=== PATIENT | male | born 1965 | race Caucasian/White ===

== ENCOUNTER → 2018-05-30 10:52 | Outpatient (CLI) | payer OTHER, SELFPAY ==
[2018-05-30 12:17] LABS: Add Manual Diff / Slide Review NO; Basophils Percent Auto 1.1 % (0-2); Eosinophils Percent Auto 1.1 % (2-4); Hematocrit 36.1 % (41-53); Hemoglobin 12.2 g/dL (13.5-17.5); Lymphocytes Percent Auto 12.5 % (25-40); Mean Corpuscular HGB Conc 33.9 % (30-36); Mean Corpuscular Hemoglobin 34.1 PG (26-34); Mean Corpuscular Volume 100.8 fL (80-100); Monocytes Percent Auto 10.7 % (3-14); Neutrophils Absolute Auto 5900 /uL (3000-5900); Neutrophils Percent Auto 74.6 % (50-75); Platelet Count 256 X10^3/uL (150-400); Red Blood Cell Count 3.58 X10^6/uL (4.5-5.9); Red Cell Distribution Width 13.5 % (11.6-14.8); White Blood Cell Count 7.9 X10^3/uL (4.5-11.0)
[2018-05-30 12:38] LABS: Erythrocyte Sedimentation Rate 63 MM/HR (0-15)
[2018-05-30 12:46] LABS: Alanine Aminotransferase 29 IU/L (21-72); Albumin 3.8 g/dL (3.5-5.0); Alkaline Phosphatase 113 U/L (38-126); Aspartate Aminotransferase 67 IU/L (17-59); BUN Creatinine Ratio 5.7 (6-22); Bilirubin Total 0.6 mg/dL (0.2-1.3); Blood Urea Nitrogen 4 mg/dL (9-20); Calcium 8.5 mg/dL (8.4-10.2); Carbon Dioxide 27 mmol/L (22-32); Chloride 99 mmol/L (98-107); Cholesterol 151 mg/dL (140-199); Estimated Glomerular Filt Rate > 60.0 mL/min (>60); Globulin 3.7 g/dL (1.7-4.1); Glucose 111 mg/dL (70-100); HDL Cholesterol 30 mg/dL (40-60); HEMOLYSIS < 15 (0-50); LDL Cholesterol Calculated 90 mg/dL (<100); Potassium 3.3 mmol/L (3.4-5.1); Sodium 143 mmol/L (137-145); Total Protein 7.5 g/dL (6.3-8.2); Triglycerides 157 mg/dL (35-150); Uric Acid 6.5 mg/dL (3.5-8.5)
[2018-05-30 12:49] LABS: Rheumatoid Factor < 8.6 IU/mL (<12.0)
[2018-05-30 13:14] LABS: Prostate Specific Antigen Scrn 1.05 ng/mL (0.1-4.0)
[2018-06-01 21:34] LABS: ANA Screen NEGATIVE (Negative); DNA Antibody Crithidia IFA NEGATIVE (Negative); Rheumatoid Factor <14 IU/mL; Sjogren Antiboday SS-A <1.0 NEG AI (<1.0 NEGATIVE); Sjogren Antiboday SS-B <1.0 NEG AI (<1.0 NEGATIVE); Sm Antibody <1.0 NEG AI (<1.0 NEGATIVE); Sm/RNP Antibody <1.0 NEG AI (<1.0 NEGATIVE)
== END ==
PROVIDERS: PCP Family Medicine; Visit Provider Family Medicine
DX: I10 Essential (primary) hypertension (principal); M19.90 Unspecified osteoarthritis, unspecified site; M25.473 Effusion, unspecified ankle; Z87.442 Personal history of urinary calculi; Z12.5 Encounter for screening for malignant neoplasm of prostate
CPT/HCPCS: 36415; 80053; 80061; 84443; 84550; 85025; 85651; 86038; 86430; G0103

== ENCOUNTER → 2018-06-14 13:03 | Outpatient (CLI) | payer OTHER, SELFPAY ==
--- NOTE | 2018-06-14 13:09 | DI.RAD.S_ITS ---
PROCEDURE: XR CHEST 2V INDICATIONS: Smoker, weight loss TECHNIQUE: 2 views of the chest were acquired. COMPARISON: None. FINDINGS: Surgical changes and devices: None. Lungs and pleura: No pleural effusions or pneumothorax. Lungs are clear. Mediastinum: Mediastinal contours are normal. Heart size is normal. Bones and chest wall: No suspicious bony abnormalities. Soft tissues appear unremarkable. IMPRESSION: No acute disease. Dictated by: Sadi Clifford M.D. on 06/14/2018 at 15:27 Approved by: Sadi Clifford M.D. on 06/14/2018 at 15:29
[2018-06-16 17:24] LABS: Hepatitis A Antibody IgM NONREACTIVE (NONREACTIVE); Hepatitis Acute Panel Interp 0.08 (NONREACTIVE); Hepatitis B Core Antibody IgM NONREACTIVE (NONREACTIVE); Hepatitis B Surface Antigen NONREACTIVE (NONREACTIVE); Hepatitis C Antibody NONREACTIVE
== END ==
PROVIDERS: PCP Family Medicine; Visit Provider Family Medicine
DX: F17.200 Nicotine dependence, unspecified, uncomplicated (principal); R63.4 Abnormal weight loss; R31.9 Hematuria, unspecified; R74.8 Abnormal levels of other serum enzymes; R27.0 Ataxia, unspecified
CPT/HCPCS: 36415; 71046; 80074; 82140

== ENCOUNTER → 2018-06-23 07:49 | Outpatient (CLI) | payer OTHER, SELFPAY ==
--- NOTE | 2018-06-23 07:51 | DI.MRI.S_ITS ---
PROCEDURE: MR HEAD/BRAIN WO CON INDICATIONS: Gait abnormal TECHNIQUE: Noncontrast axial T1 spin echo, axial T2 fast spin echo, sagittal and axial FLAIR, coronal T2 fast spin echo, axial gradient echo, axial diffusion and ADC through the brain. COMPARISON: None. FINDINGS: Image quality: Excellent. CSF Spaces: Basal cisterns are patent. No extra-axial fluid collections. Ventricles are normal in size and shape. Brain: No intracranial masses or hemorrhage. Triplett/white matter interface is normal. Brainstem appears normal. Diffusion-weighted images demonstrate no acute ischemic insult. There is mild to moderate microvascular atherosclerotic change in the deep white matter of each hemisphere. No chronic ischemic insults. Normal intravascular flow voids are present. Skull and face: Calvarium has normal marrow signal. Orbits appear normal. Sinuses: Sinuses and mastoids are clear. IMPRESSION: Mild to moderate foci of elevated flair signal in the deep white matter of each hemisphere, in a nonspecific distribution. Microvascular atherosclerotic change is considered the most likely cause of this appearance. No acute or subacute ischemic injury is identified, no mass lesion is found. No ventriculomegaly is present. Dictated by: Jacob Miranda M.D. on 06/23/2018 at 10:42 Approved by: Jacob Miranda M.D. on 06/23/2018 at 10:44
== END ==
PROVIDERS: PCP Family Medicine; Visit Provider Family Medicine
DX: I67.2 Cerebral atherosclerosis (principal); R26.0 Ataxic gait; Z87.828 Personal history of other (healed) physical injury and trauma
CPT/HCPCS: 70551

== ENCOUNTER 2018-07-18 07:53 | Day surgery (SDC) | payer OTHER, SELFPAY ==
[2018-07-18] VITALS (9 sets, daily range): BP systolic 116–152; BP diastolic 85–110; PULSE 90–119; RESP 14–20; TEMP 36.6–36.8; O2SAT 93–98; BMI 23.6
--- NOTE | 2018-07-18 | DI.RAD.S_ITS ---
PROCEDURE: XR ACUTE ABDOMEN SERIES INDICATIONS: post op TECHNIQUE: One view chest and two views of the abdomen were acquired. COMPARISON: None. FINDINGS: Surgical changes and devices: None. Chest: Lungs are clear. Heart size is normal. No pleural effusions. No pneumoperitoneum. Abdomen: Diffuse gaseous distention of large and small bowel loops.. No suspicious calcifications. Visualized solid organ contours appear normal. Bones: No suspicious bony lesions. IMPRESSION: Diffuse gaseous distention of large and small bowel loops, possibly ileus or sequela from recent colonoscopy. No definite transition point. The patient's symptoms do not improve recommend continued surveillance with abdominal series radiographs. No free air. Clear lungs. Dictated by: Sadi Clifford M.D. on 07/18/2018 at 12:09 Approved by: Sadi Clifford M.D. on 07/18/2018 at 12:10
--- NOTE | 2018-07-18 | PATH_ITS ---
[facility] Accession Number: [id number] . 01 Material submitted: . PART A: ANTRAL BIOPSIES PART B: SIGMOID COLON POLYP AT 25CM . 01 Diagnosis: A. Antrum, Biopsies: Gastric antral mucosa with chronic gastritis. Negative for Helicobacter organisms by immunohistochemistry. Negative for intestinal metaplasia, dysplasia or malignancy. . B. Sigmoid Colon Polyp at 25 cm: Tubular adenoma. MRV/07/20/2018 . 01 Electronically signed: . Emeterio Leslie MD, PhD, Pathologist NPI- [id number] . 01 Gross description: . Received two formalin-filled containers, both labeled with the patient's name: . A. In a container labeled antral, are four less than 0.1 cm to 0.2 cm portions of tissue, entirely submitted in cassette A. B. In a container labeled sigmoid colon polyp at 25, are three 0.1-0.2 cm portions of tissue, entirely submitted in cassette B. ([id number]) /R . 01 Microscopic: . A. An immunohistochemical stain was performed to evaluate for Helicobacter organisms and is negative. The control stain showed appropriate reactivity. . * This test was developed and its performance characteristics determined by [employer]. It has not been cleared or approved by the U.S. Food and Drug Administration. The FDA has determined that such clearance or approval is not necessary. This test is used for clinical purposes. It should not be regarded as investigational or for research. . 01 Pathologist provided ICD-10: D12.5, K29.70 . 01 CPT . 293275, 534163, N50081 Performed at: [address], [place], [place] [id number] MD Rito Peace MD Phone: [phone]
[2018-07-18] MEDS: LACTATED RINGERS 1,000 ML 42 ML IV (08:39)
--- NOTE | 2018-07-18 09:30 | PM.PREOP ---
Pre-operative Note Interval Note Pre-op Check: Yes History & Physical Reviewed by Physician and Yes Exam Performed Changes: No
--- NOTE | 2018-07-18 10:33 | PM.OP.1 ---
Operative Date/Time/Diagnoses Date of procedure: 07/18/18 Time of procedure: 10:33 Pre-op diagnosis: Weight loss and change in bowel habits Post-op diagnosis: other (Significant alcoholic gastritis with hemorrhage and sigmoid colon polyp but otherwise normal studies) Procedure & Clinicians Procedure: 1. Esophagogastroduodenoscopy with cold forceps biopsies 2. Colonoscopy with cold forceps polypectomy Same procedure as scheduled: Yes Indications: 53-year-old male with significant alcohol and tobacco abuse who presented with unexplained weight loss and change in bowel habits. He was recommended to undergo EGD and colonoscopy. Because of his significant alcohol use and potential difficulty for conscious sedation he was recommended undergo the endoscopy with the assistance of anesthesia services. Click Yes if Unassisted: Yes Anesthesia Type: General (Of note, the patient required significant amounts of general anesthesia to tolerate the procedure. He clearly would not have tolerated conscious sedation adequately.) Operative Notes Findings: 1. Normal larynx 2. Normal esophagus without evidence of strictures or lesions. No neoplasms 3. No evidence of esophageal varices 4. Z-line at 40 cm from the incisors without significant esophagitis. 5. Fresh and old hemorrhage within the gastric lumen in association with significant gastritis and small punctate ulcers near the pre-pyloric region. No active hemorrhage currently. No exposed vessels. 6. No evidence of gastric or duodenal neoplasms 7. No evidence of duodenal ulcers but mild duodenitis in the 1st portion of the duodenum 8. Patent pylorus and no evidence of significant hiatal hernia. 9. Extremely tortuous colon, especially on the left side which made navigation and advancement of the endoscope somewhat difficult 10. Single small polyp in the sigmoid colon but otherwise no evidence of neoplasm 11. Grossly normal terminal ileum 12. No evidence of colitis or stricture or diverticulosis Closure Type: not applicable Specimen(s): other (1. Antral biopsies 2. Sigmoid colon polyp at 25 cm) Implants & Drains: None Estimated Blood Loss (mL): 5 Blood products transfused: none Procedure in detail: After obtaining informed consent the patient was brought to the operating room and left supine on the gurney. After satisfactory induction of anesthesia a bite block was inserted and he was placed in left lateral decubitus position. SCOAP time out was performed per standard protocol. Gastroscope was placed over the tongue to the oropharynx where the upper esophageal sphincter was identified and easily intubated. Under direct visualization of the esophageal lumen the scope was advanced into the stomach which was insufflated easily with air. Pylorus was inflamed but patent and easily intubated. Scope was advanced to the 2nd portion of the duodenum which was grossly normal. Scope was slowly withdrawn and the bowel was meticulously and circumferentially examined. Findings are as above. Retroflexed view of the fundus and cardia was obtained. Antral biopsies were obtained with cold forceps and hemostasis verified. Stomach was irrigated of old blood and no other abnormalities were appreciated. Stomach was suctioned of air and fluid as much as possible the scope was withdrawn back into the esophagus. Esophagus was meticulously and circumferentially examined during withdrawal. Again, all findings are as above. Scope was removed through the mouth and this portion of the procedure terminated. Bite block was removed. Attention was turned to colonoscopy. Digital rectal examination revealed no significant hemorrhoid disease or masses. No other abnormalities. Colonoscope was inserted into the rectum and the bowel was insufflated with air. Under direct visualization of the colonic lumen the scope was advanced to the cecum where the appendiceal orifice and ileocecal valve were identified. Terminal ileum was intubated. Scope was slowly withdrawn and the bowel was meticulously and circumferentially examined. Bowel preparation was adequate. Findings are as above. Of note, we did have to reposition the patient, utilized the endoscopic stiffener device, and apply abdominal pressure to achieve the cecum. Total scope withdrawal time was approximately 8 min and 34 sec. Retroflexed view of the distal rectum and anus was obtained which showed no abnormalities. Scope was withdrawn and the procedure terminated. Anesthesia was reversed and patient taken to recovery in stable condition. Complications: none Condition: stable Disposition: PACU Plan for aftercare: 1. Discharge home 2. Return to primary care physician for ongoing evaluation and potential management of alcohol abuse
--- NOTE | 2018-07-18 11:40 | SUR.PHASEII ---
pt abdomen remarkable for notable distention espescilly on right side with maked tenderness and guarding. Dr garcia aware and 3v/ acute abdomen series ordered stat. pt benitez , shaking. Returned to NPO status after small amount of clear liquids taken, lorazepam taken po prior to ordering abdomen series. pt co slight nausea. at bedside at this time. Iv fluids at KVO
--- NOTE | 2018-07-18 11:43 | SUR.PHASEII ---
to x ray now
[2018-07-18] MEDS: LACTATED RINGERS 1,000 ML 100 ML IV (11:50)
--- NOTE | 2018-07-18 12:03 | SUR.PHASEII ---
back from x-ray [id number]
--- NOTE | 2018-07-18 12:23 | SUR.PHASEII ---
x-rays clear per dr sandy- pt passing largew amounts of gas- dc'd to home
== END 2018-07-18 12:25 | disposition home or self-care (01) ==
PROVIDERS: PCP Family Medicine; Visit Provider Surgery
PROC: 0DJ08ZZ Inspection of Upper Intestinal Tract, Via Natural or Artificial Opening Endoscopic (ICD-10-PCS; CPT 43235; 2018-07-18 09:45)
PROC: 0DJD8ZZ Inspection of Lower Intestinal Tract, Via Natural or Artificial Opening Endoscopic (ICD-10-PCS; CPT 45378; 2018-07-18 09:45)
DX: K29.80 Duodenitis without bleeding (principal); F17.210 Nicotine dependence, cigarettes, uncomplicated; R10.13 Epigastric pain; R68.81 Early satiety; R63.4 Abnormal weight loss; F41.9 Anxiety disorder, unspecified; K21.9 Gastro-esophageal reflux disease without esophagitis; G47.33 Obstructive sleep apnea (adult) (pediatric); M06.9 Rheumatoid arthritis, unspecified; D64.9 Anemia, unspecified; J44.9 Chronic obstructive pulmonary disease, unspecified; K29.21 Alcoholic gastritis with bleeding; F10.10 Alcohol abuse, uncomplicated; K22.10 Ulcer of esophagus without bleeding; D12.5 Benign neoplasm of sigmoid colon
CPT/HCPCS: 45380; 43239; 74022; 88305; 88342; J3010

== ENCOUNTER → 2018-07-31 11:07 | Outpatient (CLI) | payer OTHER, SELFPAY ==
[2018-07-31 13:27] LABS: Folate 19.9 ng/mL (2.76-20.0); Vitamin B12 808 pg/mL (239-931)
== END ==
PROVIDERS: PCP Family Medicine; Visit Provider Family Medicine
DX: R27.0 Ataxia, unspecified (principal)
CPT/HCPCS: 36415; 82607; 82746

== ENCOUNTER 2019-02-04 11:17 | Inpatient (IN) | payer OTHER, SELFPAY ==
[2019-02-04] VITALS (12 sets, daily range): BP systolic 89–105; BP diastolic 54–80; PULSE 76–107; RESP 11–22; TEMP 36.3–36.9; O2SAT 87–98; BMI 24.8; BMI 25.2
--- NOTE | 2019-02-04 11:56 | DI.RAD.S_ITS ---
PROCEDURE: XR RIBS BI MIN 4V W CXR1V INDICATIONS: multiple falls, contusions and pain in rib areas, SOB TECHNIQUE: 4 views of the bilateral ribs were acquired, along with a single view chest. COMPARISON: None. FINDINGS: Surgical changes and devices: None. Bones and chest wall: No displaced fractures or dislocations. No suspicious bony lesions. Overlying soft tissues appear unremarkable. Lungs and pleura: No pleural effusions or pneumothorax. Minimal consolidation at the left lung base is present. Mediastinum: Mediastinal contours appear normal. Heart size is normal. IMPRESSION: 1. No displaced rib fractures are evident. 2. Left basilar atelectasis. Dictated by: Larry Price M.D. on 02/04/2019 at 12:01 Approved by: Larry Price M.D. on 02/04/2019 at 12:03
[2019-02-04 12:00] LABS: INR 1.3 (0.9-1.3); Prothrombin Time 15.4 SECONDS (10.1-12.7)
[2019-02-04 12:03] LABS: PTT Partial Thromboplastin Tim 33 SECONDS (26.4-36.2)
[2019-02-04 12:05] LABS: Add Manual Diff / Slide Review NO; Alanine Aminotransferase 18 IU/L (21-72); Albumin 2.6 g/dL (3.5-5.0); Albumin Globulin Ratio 0.6 (1.0-2.8); Alkaline Phosphatase 184 U/L (38-126); Aspartate Aminotransferase 87 IU/L (17-59); Basophils Absolute Auto 0 /uL (0-100); Basophils Percent Auto 0.5 % (0-2); Bilirubin Total 0.6 mg/dL (0.2-1.3); Blood Urea Nitrogen 7 mg/dL (9-20); Calcium 7.8 mg/dL (8.4-10.2); Carbon Dioxide 30 mmol/L (22-32); Chloride 90 mmol/L (98-107); Eosinophils Absolute Auto 0 /uL (0-450); Eosinophils Percent Auto 0.1 % (2-4); Globulin 4.3 g/dL (1.7-4.1); Glucose 132 mg/dL (70-100); HEMOLYSIS < 15 (0-50); Hematocrit 30.3 % (41-53); Hemoglobin 10.4 g/dL (13.5-17.5); Lipase 93 U/L (23-300); Lymphocytes Absolute Auto 700 /uL (1100-4500); Lymphocytes Percent Auto 10.8 % (25-40); Mean Corpuscular HGB Conc 34.4 % (30-36); Mean Corpuscular Hemoglobin 36.7 PG (26-34); Mean Corpuscular Volume 106.6 fL (80-100); Monocytes Absolute Auto 500 /uL (0-900); Monocytes Percent Auto 7.7 % (3-14); Neutrophils Absolute Auto 5400 /uL (1500-7000); Neutrophils Percent Auto 80.9 % (50-75); Platelet Count 195 X10^3/uL (150-400); Red Blood Cell Count 2.84 X10^6/uL (4.5-5.9); Red Cell Distribution Width 16.1 % (11.6-14.8); Sodium 131 mmol/L (137-145); Total Protein 6.9 g/dL (6.3-8.2); White Blood Cell Count 6.6 X10^3/uL (4.5-11.0)
[2019-02-04 12:12] LABS: Potassium 2.4 mmol/L (3.4-5.1)
--- NOTE | 2019-02-04 12:12 | ED.WEAKNESS ---
HPI - Weakness General Chief complaint: Weakness Stated complaint: Chronic pain,swollen legs,fatigue Time Seen by Provider: 02/04/19 12:12 Source: patient and family Mode of arrival: wheelchair Limitations: altered mental status (somewhat confused per family) History of Present Illness HPI Narrative: [age] year old male comes to the emergency department patient states that he came today to get a fit for detention clearance. Patient was scheduled to go to detention today. When he arrived and they were asking about medical issues they asked him to come into the hospital. Patient has had issues with a increasingly distended belly as well as swelling in his lower extremities. Family states this is been going on for several months but slowly worsening. His legs have also bit swollen and her becoming slowly more painful. He has not had any fevers. He does complain of shortness of breath just while lying flat but also with exertion. He is able to lay flat. He has also had worsening memory which according to his has been slowly advancing. He also has some pain in her his chest but has had multiple falls and they think that he may have broken some ribs. He has pain with movement. He also has bruising on his upper extremities they are unsure if this is from trauma or spontaneous. Patient denies any nausea no vomiting he does occasionally have diarrhea alternating with constipation but had a normal bowel movement today. No black or bloody stools. He is not taking any medications regularly other than [id number] potassium. His primary care stopped his blood pressure medications as he has had a decrease in his blood pressure over time. He has not had prior surgeries. He does not see a english and reading instructor or GI specialty dock. He does smoke, he does drink alcohol and he states he drinks a lot, he denies any illicit. Lucia Stewart is his primary care physician. Related Data Home Medications Medication Instructions Recorded Confirmed esomeprazole magnesium [Nexium] 20 mg PO DAILY PRN 07/18/18 02/04/19 aspirin 325 mg PO DAILY 02/04/19 02/04/19 multivitamin,ny-jssi-uglydalt 1 tab PO DAILY 02/04/19 02/04/19 [Complete Multivitamin] potassium 99 mg PO DAILY 02/04/19 02/04/19 Previous Rx's Medication Instructions Recorded polyethylene glycol 3350 17 gram 17 gram PO DAILY #30 each 06/19/18 oral powder packet furosemide 20 mg tablet 20 mg PO DAILY #90 tab 06/29/18 trazodone 50 mg tablet 50 mg PO DAILY #30 tab 08/02/18 Allergies Allergy/AdvReac Type Severity Reaction Status Date / Time Penicillins Allergy Mild unkown, Verified 02/04/19 11:36 childhood Review of Systems Review of Systems ROS Unobtainable: All systems reviewed & are unremarkable except as noted in HPI and below Constitutional Denies chills, Reports fatigue, Denies fever(s), Reports frequent falls, Denies lethargy and Denies weakness Cardiovascular Denies diaphoresis, Denies syncope, Reports edema (bilateral legs, slowly worsening), Reports dyspnea and Reports dyspnea on exertion Respiratory Denies chest congestion, Denies cough, Reports dyspnea, Reports dyspnea on exertion and Denies wheezing Gastrointestinal Gastrointestinal: Denies abdominal pain, Denies melena, Denies hematochezia, Denies change in bowel habits, Denies nausea and Denies vomiting Genitourinary Denies hematuria, Denies flank pain, Denies urinary frequency, Denies urinary hesitancy, Denies urinary incontinence and Denies urinary urgency Musculoskeletal Reports abnormal gait (unsteady gait. chronically) and Reports other (chest pain, hit ribs) Integumentary/Breasts Reports unusual bruising and Reports jaundice (several weeks per family) Neurologic Reports abnormal gait (unsteady gait. chronically), Reports confusion, Denies syncope, Reports frequent falls and Denies weakness Psychiatric Reports confusion Endocrine Reports fatigue Allergic/Immunologic Denies wheezing [facility] Medical History Ankle pain (Chronic 2018) Anxiety (Chronic) Cervical spine disease (Chronic 2003) Chronic back pain (Chronic) GERD (gastroesophageal reflux disease) (Chronic 2005) Hearing loss (Chronic) Lumbar spine pain (Chronic) Recurrent sinusitis (Chronic) Rheumatoid arthritis (Chronic) Seizures (Chronic) Sleep apnea (Chronic 2004) PTSD (post-traumatic stress disorder) (Suspected) Abnormal chest x-ray (Resolved 2015) Foot pain (Resolved) Fractures (Resolved) Hemorrhoids (Resolved 1987) History of head injury (Resolved) History of spleen injury (Resolved) Surgical History Anesthesia (Resolved) Hx of surgical procedure (Resolved ~2004) Social History household members: spouse and children Smoking Status: Current every day smoker Tobacco: How many years used: 10 alcohol intake: current Social History household members: spouse and children Smoking Status: Current every day smoker Tobacco: How many years used: 10 alcohol intake: current Exam Narrative Exam Narrative: GEN: Thin jaundiced male, alert and oriented x 3 although patient seems slightly confused at times, patient's family states that he is a little confused, patient appears to be in mild distress. HEENT: Atraumatic, pupils are equal round reactive to light, extraocular movements are intact, mild scleral icterus, nares are clear. HEART: Regular rate and rhythm without murmur, clicks, rubs. Pulses are equal in upper extremities. Patient has 2+ pitting edema bilateral lower extremities. LUNGS:Lungs clear to auscultation, no wheezes, rales, crackles, chest moves symmetrically ABD:bowel sounds normal, distended, soft, non-tender, no guarding, rebound, rigidity, no masses noted, no HSM appreciated. :No CVA tenderness MSCL: Non-tender, patient has atrophy of bilateral upper extremities, he is able to lift his arms but has difficulty even pulling himself upright in bed from a partially Lang physician. NEURO:CN 2-12 intact, sensation normal SKIN: Patient has multiple areas of ecchymosis on bilateral upper extremities. None appreciated on his chest or back or abdomen. No major areas of bruising on his lower extremities. Initial Vital Signs Initial Vital Signs: Vital Signs Temperature 98.4 F 02/04/19 11:37 Pulse Rate 107 H 02/04/19 11:37 Respiratory Rate 22 02/04/19 11:37 Blood Pressure 102/74 02/04/19 11:37 Pulse Oximetry 96 02/04/19 11:37 Scores ABCD2 Citation: Meld score is 18, with a 6% 3 month mortality. GCS Cece coma scale eye opening: Spontaneous Cece coma scale verbal response: Confused [place] coma scale motor response: Obey commands Cece coma scale total score: 14 Course Orders Ordered: ED Orders 02/04/19 11:41 B Type Natriuretic Peptide Stat Complete Blood Count AUTO DIFF Stat Comprehensive Metabolic Panel Stat Lipase Stat Partial Thromboplastin Time Stat Prothrombin Time INR Stat Troponin & CK Cardiac Panel Stat 02/04/19 11:48 EKG-12 Lead Stat 02/04/19 11:56 XR ribs BI min 4V w CXR1V Stat 02/04/19 12:10 Ammonia (NH3) Stat 02/04/19 12:30 US abdomen limited Stat 02/04/19 12:33 CT head/brain wo con Stat 02/04/19 13:09 Urine Culture Stat Urine Microscopic Stat 02/04/19 17:24 Consult to Dietitian, Adult Routine Consult to Respiratory Therapy Evaluate & Treat Consult to Study Manager Routine Education, smoking cessation Once 02/04/19 17:37 Education, smoking cessation ONGOING 02/04/19 17:39 Consult to Dietitian, Adult Routine Consult to Occupational Therapy Evaluate & Treat Consult to Physical Therapy Evaluate & Treat 02/04/19 17:56 US paracentesis Urgent 02/04/19 18:30 Basic Metabolic Panel Routine 02/05/19 05:00 Complete Blood Count AUTO DIFF Routine Comprehensive Metabolic Panel Routine Magnesium Routine Partial Thromboplastin Time Routine Prothrombin Time INR Routine Thyroid Stimulating Hormone Routine Bisacodyl (Dulcolax) 10 mg PO DAILY PRN PRN Reason: Constipation Docusate Sodium (Colace) 100 mg PO BID VIANCA Folic Acid (Folic Acid) 1 mg PO DAILY VIANCA Hydromorphone HCl (Dilaudid) 0.5 mg IV Q6HR PRN PRN Reason: Pain, Moderate (4-6) Magnesium Sulfate 2 gm/ Folic Acid 1 mg/ Thiamine HCl 100 mg / Multivitamins 10 ml/ Sodium Chloride 1,015.2 mls @ 125 mls/hr IV NOW ONE Stop: 02/05/19 01:44 Lorazepam (Ativan) 0 mg IV CIWAPRN PRN; Protocol PRN Reason: Alcohol Withdrawal Multivitamins (Tab-A-Stephan) 1 tab PO DAILY [facility] Ondansetron HCl (Zofran) 4 mg IV Q6HR PRN PRN Reason: Nausea And Vomiting Oxycodone HCl (Percolone) 5 mg PO Q6HR PRN PRN Reason: Pain, Moderate (4-6) Pantoprazole Sodium (Protonix) 20 mg PO 0600 VIANCA Potassium Chloride (Klor-Con M20) 40 meq PO BIDWM VIANCA Sennosides (Senna) 17.2 mg PO BEDTIME VIANCA Spironolactone (Aldactone) 50 mg PO DAILY [facility] Thiamine HCl (Vitamin B-1) 100 mg PO DAILY VIANCA Stop: 02/08/19 09:01 Discontinued Medications Potassium Chloride/Sodium Chloride (Ns With Kcl 40 Meq) 1,000 mls @ 84 mls/hr IV CONT VIANCA Last Infusion: 02/04/19 17:33 Dose: 0 mls/hr Infusion: 02/04/19 17:32 Dose: 0 mls/hr Infusion: 02/04/19 16:32 Dose: 84 mls/hr Infusion: 02/04/19 13:19 Dose: 84 mls/hr Infusion: 02/04/19 12:35 Dose: 0 mls/hr Admin: 02/04/19 12:23 Dose: 84 mls/hr Calcium Gluconate 4.65 meq/ (Sodium Chloride) 60 mls @ 120 mls/hr IV NOW ONE Stop: 02/04/19 14:18 Last Infusion: 02/04/19 15:51 Dose: 0 mls/hr Admin: 02/04/19 15:03 Dose: 120 mls/hr Ondansetron HCl (Zofran) 4 mg IV Q8HR PRN PRN Reason: Nausea And Vomiting Potassium Chloride (Potassium Chloride) 40 meq PO NOW ONE Stop: 02/04/19 12:13 Last Admin: 02/04/19 12:22 Dose: 40 meq Vital Signs - 8 hr 02/04/19 11:37 02/04/19 12:00 02/04/19 13:17 Temperature 98.4 F Pulse Rate 107 H 95 H 88 Respiratory Rate 22 14 18 Blood Pressure 102/74 Blood Pressure [Left Arm] 105/80 104/74 Pulse Oximetry 96 94 94 02/04/19 15:00 02/04/19 15:14 02/04/19 15:30 Temperature Pulse Rate 81 88 Respiratory Rate 12 12 Blood Pressure Blood Pressure [Left Arm] 89/71 L 97/68 Pulse Oximetry 87 L 94 02/04/19 16:00 02/04/19 17:00 02/04/19 17:39 Temperature 97.7 F Pulse Rate 87 76 82 Respiratory Rate 11 L 20 Blood Pressure 93/54 L Blood Pressure [Left Arm] 89/64 L Pulse Oximetry 95 98 MDM - Weakness Lab Data Attestation: I reviewed the patient's lab results. Result diagrams: 02/04/19 11:41 02/04/19 18:30 Lab Results 02/04/19 02/04/19 02/04/19 Range/Units 11:41 11:41 11:41 WBC 6.6 (4.5-11.0) X10^3/uL RBC 2.84 L (4.5-5.9) X10^6/uL Hgb 10.4 L (13.5-17.5) g/dL Hct 30.3 L (41-53) % MCV 106.6 H (80-100) fL MCH 36.7 H (26-34) PG MCHC 34.4 (30-36) % RDW 16.1 H (11.6-14.8) % Plt Count 195 (150-400) X10^3/uL Neut % (Auto) 80.9 H (50-75) % Lymph % (Auto) 10.8 L (25-40) % [place] % (Auto) 7.7 (3-14) % Eos % (Auto) 0.1 L (2-4) % Baso % (Auto) 0.5 (0-2) % Neut # (Auto) 5400 (6656-6954) /uL Lymph # (Auto) 700 L (2102-7620) /uL [place] # (Auto) 500 (0-900) /uL Eos # (Auto) 0 (0-450) /uL Baso # (Auto) 0 (0-100) /uL PT 15.4 H (10.1-12.7) SECONDS INR 1.3 (0.9-1.3) APTT 33 (26.4-36.2) SECONDS Sodium 131 L (137-145) mmol/L Potassium 2.4 L* (3.4-5.1) mmol/L Chloride 90 L (98-107) mmol/L Carbon Dioxide 30 (22-32) mmol/L BUN 7 L (9-20) mg/dL Creatinine 1.40 H (0.66-1.25) mg/dL Estimated GFR 53.0 L (>60) mL/min BUN/Creatinine Ratio 5.0 L (6-22) Glucose 132 H (70-100) mg/dL Calcium 7.8 L (8.4-10.2) mg/dL Total Bilirubin 0.6 (0.2-1.3) mg/dL AST 87 H (17-59) IU/L ALT 18 L (21-72) IU/L Alkaline Phosphatase 184 H (38-126) U/L Ammonia (9-30) umol/L Total Creatine Kinase (55-170) U/L CK-MB (CK-2) (<2.37) ng/mL CK-MB (CK-2) Rel Index (1.5-5.0) % Troponin I (0.01-0.034) ng/mL B-Natriuretic Peptide (<100) Total Protein 6.9 (6.3-8.2) g/dL Albumin 2.6 L (3.5-5.0) g/dL Globulin 4.3 H (1.7-4.1) g/dL Albumin/Globulin Ratio 0.6 L (1.0-2.8) Lipase 93 (23-300) U/L Urine RBC (0-5/HPF) Urine WBC (0-5/HPF) Calcium Oxalate Crystal Amorphous Sediment Urine Bacteria (None) Ur Culture Indicated? 02/04/19 02/04/19 02/04/19 Range/Units 11:41 11:41 12:10 WBC (4.5-11.0) X10^3/uL RBC (4.5-5.9) X10^6/uL Hgb (13.5-17.5) g/dL Hct (41-53) % MCV (80-100) fL MCH (26-34) PG MCHC (30-36) % RDW (11.6-14.8) % Plt Count (150-400) X10^3/uL Neut % (Auto) (50-75) % Lymph % (Auto) (25-40) % [place] % (Auto) (3-14) % Eos % (Auto) (2-4) % Baso % (Auto) (0-2) % Neut # (Auto) (9487-8188) /uL Lymph # (Auto) (1270-8260) /uL [place] # (Auto) (0-900) /uL Eos # (Auto) (0-450) /uL Baso # (Auto) (0-100) /uL PT (10.1-12.7) SECONDS INR (0.9-1.3) APTT (26.4-36.2) SECONDS Sodium (137-145) mmol/L Potassium (3.4-5.1) mmol/L Chloride (98-107) mmol/L Carbon Dioxide (22-32) mmol/L BUN (9-20) mg/dL Creatinine (0.66-1.25) mg/dL Estimated GFR (>60) mL/min BUN/Creatinine Ratio (6-22) Glucose (70-100) mg/dL Calcium (8.4-10.2) mg/dL Total Bilirubin (0.2-1.3) mg/dL AST (17-59) IU/L ALT (21-72) IU/L Alkaline Phosphatase (38-126) U/L Ammonia < 9.0 L (9-30) umol/L Total Creatine Kinase 362 H (55-170) U/L CK-MB (CK-2) 0.81 (<2.37) ng/mL CK-MB (CK-2) Rel Index 0.2 L (1.5-5.0) % Troponin I 0.013 (0.01-0.034) ng/mL B-Natriuretic Peptide < 100 (<100) Total Protein (6.3-8.2) g/dL Albumin (3.5-5.0) g/dL Globulin (1.7-4.1) g/dL Albumin/Globulin Ratio (1.0-2.8) Lipase (23-300) U/L Urine RBC (0-5/HPF) Urine WBC (0-5/HPF) Calcium Oxalate Crystal Amorphous Sediment Urine Bacteria (None) Ur Culture Indicated? 02/04/19 02/04/19 Range/Units 13:09 18:30 WBC (4.5-11.0) X10^3/uL RBC (4.5-5.9) X10^6/uL Hgb (13.5-17.5) g/dL Hct (41-53) % MCV (80-100) fL MCH (26-34) PG MCHC (30-36) % RDW (11.6-14.8) % Plt Count (150-400) X10^3/uL Neut % (Auto) (50-75) % Lymph % (Auto) (25-40) % [place] % (Auto) (3-14) % Eos % (Auto) (2-4) % Baso % (Auto) (0-2) % Neut # (Auto) (1926-5701) /uL Lymph # (Auto) (6929-0701) /uL [place] # (Auto) (0-900) /uL Eos # (Auto) (0-450) /uL Baso # (Auto) (0-100) /uL PT (10.1-12.7) SECONDS INR (0.9-1.3) APTT (26.4-36.2) SECONDS Sodium 132 L (137-145) mmol/L Potassium 2.8 L (3.4-5.1) mmol/L Chloride 94 L (98-107) mmol/L Carbon Dioxide 31 (22-32) mmol/L BUN 7 L (9-20) mg/dL Creatinine 1.30 H (0.66-1.25) mg/dL Estimated GFR 57.7 L (>60) mL/min BUN/Creatinine Ratio 5.4 L (6-22) Glucose 103 H (70-100) mg/dL Calcium 7.6 L (8.4-10.2) mg/dL Total Bilirubin (0.2-1.3) mg/dL AST (17-59) IU/L ALT (21-72) IU/L Alkaline Phosphatase (38-126) U/L Ammonia (9-30) umol/L Total Creatine Kinase (55-170) U/L CK-MB (CK-2) (<2.37) ng/mL CK-MB (CK-2) Rel Index (1.5-5.0) % Troponin I (0.01-0.034) ng/mL B-Natriuretic Peptide (<100) Total Protein (6.3-8.2) g/dL Albumin (3.5-5.0) g/dL Globulin (1.7-4.1) g/dL Albumin/Globulin Ratio (1.0-2.8) Lipase (23-300) U/L Urine RBC 0-1/hpf (0-5/HPF) Urine WBC 5-10/hpf H (0-5/HPF) Calcium Oxalate Crystal Few H Amorphous Sediment 1+ Urine Bacteria Few (2-10) H (None) Ur Culture Indicated? Specimen cultured Urine Dip Bedside Urine Glucose Negative Bedside Urine Bilirubin + 1 Bedside Urine Ketone +/- 5 Urine Specific Kake 1.025 Bedside Urine Occult Blood - Negative Bedside Urine pH 5.0 Bedside Urine Protein + 30 Bedside Urine Urobilinogen 1+ 2mg Bedside Urine Nitrite - Negative Bedside Urine Leukocytes +++ [address] scan - head: Radiologist's impression: [address] [address] [address] Scan Report Signed Patient: Danny Webber KMR#: [id number] : 1965Acct:[id number] Age/Sex: 53 / MDate of Service: 02/04/19 Loc: ED Accession Number: [id number] Procedure: CT head/brain wo con Ordering Provider: Bev Nunez D.O. PROCEDURE: CT HEAD/BRAIN WO CON INDICATIONS: multiple falls, confusion, liver failure TECHNIQUE: Noncontrast 4.5 mm thick angled axial sections acquired from the foramen magnum to the vertex, with coronal and sagittal reformats. For radiation dose reduction, the following was used: automated exposure control, adjustment of mA and/or kV according to patient size. COMPARISON: [facility], , MR HEAD/BRAIN WO CON, 06/23/2018, 8:04. FINDINGS: Image quality: Diagnostic. CSF spaces: Basal cisterns are patent. No extra-axial fluid collections. Ventricles are moderately prominent with corresponding parenchymal volume loss. Brain: No midline shift. No intracranial masses or hemorrhage. Triplett-white matter interface is normal. Areas of low-attenuation are seen within the periventricular and deep white matter of the supratentorial brain. This is similar to the prior MRI. Skull and face: Calvarium and visualized facial bones are intact, without suspicious lesions. Sinuses: Visualized sinuses and mastoids are clear. IMPRESSION: 1. No acute intracranial hemorrhage. 2. Chronic small vessel ischemic changes and parenchymal volume loss are similar to the previous MRI. Dictated by: Larry Price M.D. on 02/04/2019 at 12:03 Approved by: Larry Price M.D. on 02/04/2019 at 12:05 US - abdomen: Radiologist's impression: [address] [address] Ultrasound Report Signed Patient: Danny Webber KMR#: [id number] : 1965Acct:[id number] Age/Sex: 53 / MDate of Service: 02/04/19 Loc: ED Accession Number: [id number] Procedure: US abdomen limited Ordering Provider: Bev Nunez D.O. PROCEDURE: US ABDOMEN LIMITED INDICATIONS: ASCITIES; SUSPECTED LIVER FAILURE TECHNIQUE: Limited sonographic evaluation of the abdomen was performed. COMPARISON: None. FINDINGS: A large amount of ascites is identified diffusely throughout the abdomen. The liver is heterogeneous and nodular. Evaluation for subtle liver lesions is not adequate. Please note that the other abdominal organs were not imaged. . IMPRESSION: 1. Cirrhotic liver morphology. Please correlate clinically. 2. Extensive ascites. Dictated by: Larry Price M.D. on 02/04/2019 at 12:43 Approved by: Larry Price M.D. on 02/04/2019 at 12:44 Chest x-ray: Radiologist's impression: [place] [address] XRay Report Signed Patient: Danny Webber KMR#: [id number] : 1965Acct:[id number] Age/Sex: 53 / MDate of Service: 02/04/19 Loc: ED Accession Number: [id number] Procedure: XR ribs BI min 4V w CXR1V Ordering Provider: Bev Nunez D.O. PROCEDURE: XR RIBS BI MIN 4V W CXR1V INDICATIONS: multiple falls, contusions and pain in rib areas, SOB TECHNIQUE: 4 views of the bilateral ribs were acquired, along with a single view chest. COMPARISON: None. FINDINGS: Surgical changes and devices: None. Bones and chest wall: No displaced fractures or dislocations. No suspicious bony lesions. Overlying soft tissues appear unremarkable. Lungs and pleura: No pleural effusions or pneumothorax. Minimal consolidation at the left lung base is present. Mediastinum: Mediastinal contours appear normal. Heart size is normal. IMPRESSION: 1. No displaced rib fractures are evident. 2. Left basilar atelectasis. Dictated by: Larry Price M.D. on 02/04/2019 at 12:01 Approved by: Larry Price M.D. on 02/04/2019 at 12:03 ECG Data Attestation: I personally reviewed and interpreted this ECG as follows: Interpretation: Sinus rhythm rate of 94 P are 188 QRS of 92 and QTC of [address] elevation depression appreciated. MDM Narrative Medical decision making narrative: Patient hypokalemia, patient received IV potassium as well as a single dose of oral. Likely need monitoring and repeat dosing as well as repeat potassium levels. Calcium is also low. Patient has multiple electrolyte abnormalities, possible acute kidney injury versus chronic. He is anemic, patient's no known or melanotic or hematochezia. Patient has had shortness of breath with swelling in his lower extremities and worsening ascites per patient family. He is also increasing confusion although his ammonia is in a normal range. He has had multiple falls so head CT was ordered, abdominal ultrasound was performed and showed changes in the liver as well as ascites. A chest and abdominal x-ray shows some atelectasis but no lower effusions. Patient does not appear to be any major distress and likely all of his symptoms were and objective findings are secondary to his continued alcohol use. Meld score is 18. Spoke with Dr. Martinez from GI at [facility], states patient just needs to have his electrolytes replaced and can follow up outpatient with the clinic. Does not feel that he need to be at a facility with GI available. Spoke with Dr. Sarkar who accepts. Discharge Plan Departure Patient Disposition: Admitted as Observation Clinical Impression: Hypokalemia, Hypocalcemia, Cirrhosis Discharge Date/Time: 02/04/19 16:33 Interventions: ED Discharge Assessment Last Done: 02/04/19 16:33 Admit Date/Time: 02/04/19 15:34 Admit Provider: Sheila Sarkar
[2019-02-04] MEDS: POTASSIUM CHLORIDE 20 MEQ/15 ML UDC 40 MEQ PO (12:22)
[2019-02-04] MEDS: KCL 40 MEQ IN NS 1,000 ML 84 MEQ IV (12:23)
--- NOTE | 2019-02-04 12:30 | DI.US.S_ITS ---
PROCEDURE: US ABDOMEN LIMITED INDICATIONS: ASCITIES; SUSPECTED LIVER FAILURE TECHNIQUE: Limited sonographic evaluation of the abdomen was performed. COMPARISON: None. FINDINGS: A large amount of ascites is identified diffusely throughout the abdomen. The liver is heterogeneous and nodular. Evaluation for subtle liver lesions is not adequate. Please note that the other abdominal organs were not imaged. . IMPRESSION: 1. Cirrhotic liver morphology. Please correlate clinically. 2. Extensive ascites. Dictated by: Larry Price M.D. on 02/04/2019 at 12:43 Approved by: Larry Price M.D. on 02/04/2019 at 12:44
[2019-02-04 12:32] LABS: Ammonia (NH3) < 9.0 umol/L (9-30)
--- NOTE | 2019-02-04 12:33 | ED_ITS ---
HPI - Weakness General Chief complaint: Weakness Stated complaint: Chronic pain,swollen legs,fatigue Time Seen by Provider: 02/04/19 12:12 Source: patient and family Mode of arrival: wheelchair Limitations: altered mental status (somewhat confused per family) History of Present Illness HPI Narrative: [age] year old male comes to the emergency department patient states that he came today to get a fit for snf clearance. Patient was scheduled to go to snf today. When he arrived and they were asking about medical issues they asked him to come into the hospital. Patient has had issues with a increasingly distended belly as well as swelling in his lower extremities. Family states this is been going on for several months but slowly worsening. His legs have also bit swollen and her becoming slowly more painful. He has not had any fevers. He does complain of shortness of breath just while lying flat but also with exertion. He is able to lay flat. He has also had worsening memory which according to his has been slowly advancing. He also has some pain in her his chest but has had multiple falls and they think that he may have broken some ribs. He has pain with movement. He also has bruising on his upper extremities they are unsure if this is from trauma or spontaneous. Patient denies any nausea no vomiting he does occasionally have diarrhea alternating with constipation but had a normal bowel movement today. No black or bloody stools. He is not taking any medications regularly other than [id number]-[id number] potassium. His primary care stopped his blood pressure medications as he has had a decrease in his blood pressure over time. He has not had prior surgeries. He does not see a technical communicator or GI specialty dock. He does smoke, he does drink alcohol and he states he drinks a lot, he denies any illicit. Lucia Stewart is his primary care physician. Related Data Home Medications Medication Instructions Recorded Confirmed esomeprazole magnesium [Nexium] 20 mg PO DAILY PRN 07/18/18 02/04/19 aspirin 325 mg PO DAILY 02/04/19 02/04/19 multivitamin,[id number] 1 tab PO DAILY 02/04/19 02/04/19 [Complete Multivitamin] potassium 99 mg PO DAILY 02/04/19 02/04/19 Previous Rx's Medication Instructions Recorded polyethylene glycol 3350 17 gram 17 gram PO DAILY #30 each 06/19/18 oral powder packet furosemide 20 mg tablet 20 mg PO DAILY #90 tab 06/29/18 trazodone 50 mg tablet 50 mg PO DAILY #30 tab 08/02/18 Allergies Allergy/AdvReac Type Severity Reaction Status Date / Time Penicillins Allergy Mild unkown, Verified 02/04/19 11:36 childhood Review of Systems Review of Systems ROS Unobtainable: All systems reviewed & are unremarkable except as noted in HPI and below Constitutional Denies chills, Reports fatigue, Denies fever(s), Reports frequent falls, Denies lethargy and Denies weakness Cardiovascular Denies diaphoresis, Denies syncope, Reports edema (bilateral legs, slowly worsening), Reports dyspnea and Reports dyspnea on exertion Respiratory Denies chest congestion, Denies cough, Reports dyspnea, Reports dyspnea on exertion and Denies wheezing Gastrointestinal Gastrointestinal: Denies abdominal pain, Denies melena, Denies hematochezia, Denies change in bowel habits, Denies nausea and Denies vomiting Genitourinary Denies hematuria, Denies flank pain, Denies urinary frequency, Denies urinary hesitancy, Denies urinary incontinence and Denies urinary urgency Musculoskeletal Reports abnormal gait (unsteady gait. chronically) and Reports other (chest pain, hit ribs) Integumentary/Breasts Reports unusual bruising and Reports jaundice (several weeks per family) Neurologic Reports abnormal gait (unsteady gait. chronically), Reports confusion, Denies s yncope, Reports frequent falls and Denies weakness Psychiatric Reports confusion Endocrine Reports fatigue Allergic/Immunologic Denies wheezing [facility] Medical History Ankle pain (Chronic 2018) Anxiety (Chronic) Cervical spine disease (Chronic 2003) Chronic back pain (Chronic) GERD (gastroesophageal reflux disease) (Chronic 2005) Hearing loss (Chronic) Lumbar spine pain (Chronic) Recurrent sinusitis (Chronic) Rheumatoid arthritis (Chronic) Seizures (Chronic) Sleep apnea (Chronic 2004) PTSD (post-traumatic stress disorder) (Suspected) Abnormal chest x-ray (Resolved 2015) Foot pain (Resolved) Fractures (Resolved) Hemorrhoids (Resolved 1987) History of head injury (Resolved) History of spleen injury (Resolved) Surgical History Anesthesia (Resolved) Hx of surgical procedure (Resolved ~2004) Social History household members: spouse and children Smoking Status: Current every day smoker Tobacco: How many years used: 10 alcohol intake: current Social History household members: spouse and children Smoking Status: Current every day smoker Tobacco: How many years used: 10 alcohol intake: current Exam Narrative Exam Narrative: GEN: Thin jaundiced male, alert and oriented x 3 although patient seems slightly confused at times, patient's family states that he is a little confused, patient appears to be in mild distress. HEENT: Atraumatic, pupils are equal round reactive to light, extraocular movements are intact, mild scleral icterus, nares are clear. HEART: Regular rate and rhythm without murmur, clicks, rubs. Pulses are equal in upper extremities. Patient has 2+ pitting edema bilateral lower extremities. LUNGS:Lungs clear to auscultation, no wheezes, rales, crackles, chest moves symmetrically ABD:bowel sounds normal, distended, soft, non-tender, no guarding, rebound, rigidity, no masses noted, no HSM appreciated. :No CVA tenderness MSCL: Non-tender, patient has atrophy of bilateral upper extremities, he is able to lift his arms but has difficulty even pulling himself upright in bed from a partially Lang physician. NEURO:CN 2-12 intact, sensation normal SKIN: Patient has multiple areas of ecchymosis on bilateral upper extremities. None appreciated on his chest or back or abdomen. No major areas of bruising on his lower extremities. Initial Vital Signs Initial Vital Signs: Vital Signs Temperature 98.4 F 02/04/19 11:37 Pulse Rate 107 H 02/04/19 11:37 Respiratory Rate 22 02/04/19 11:37 Blood Pressure 102/74 02/04/19 11:37 Pulse Oximetry 96 02/04/19 11:37 Scores ABCD2 Citation: Meld score is 18, with a 6% 3 month mortality. GCS Hall coma scale eye opening: Spontaneous Cece coma scale verbal response: Confused Cece coma scale motor response: Obey commands Hall coma scale total score: 14 Course Orders Ordered: ED Orders 02/04/19 11:41 B Type Natriuretic Peptide Stat Complete Blood Count AUTO DIFF Stat Comprehensive Metabolic Panel Stat Lipase Stat Partial Thromboplastin Time Stat Prothrombin Time INR Stat Troponin & CK Cardiac Panel Stat 02/04/19 11:48 EKG-12 Lead Stat 02/04/19 11:56 XR ribs BI min 4V w CXR1V Stat 02/04/19 12:10 Ammonia (NH3) Stat 02/04/19 12:30 US abdomen limited Stat 02/04/19 12:33 CT head/brain wo con Stat 02/04/19 13:09 Urine Culture Stat Urine Microscopic Stat 02/04/19 17:24 Consult to Dietitian, Adult Routine Consult to Respiratory Therapy Evaluate & Treat Consult to Deputy City Clerk Routine Education, smoking cessation Once 02/04/19 17:37 Education, smoking cessation ONGOING 02/04/19 17:39 Consult to Dietitian, Adult Routine Consult to Occupational Therapy Evaluate & Treat Consult to Physical Therapy Evaluate & Treat 02/04/19 17:56 US paracentesis Urgent 02/04/19 18:30 Basic Metabolic Panel Routine 02/05/19 05:00 Complete Blood Count AUTO DIFF Routine Comprehensive Metabolic Panel Routine Magnesium Routine Partial Thromboplastin Time Routine Prothrombin Time INR Routine Thyroid Stimulating Hormone Routine Bisacodyl (Dulcolax) 10 mg PO DAILY PRN PRN Reason: Constipation Docusate Sodium (Colace) 100 mg PO BID VIANCA Folic Acid (Folic Acid) 1 mg PO DAILY VIANCA Hydromorphone HCl (Dilaudid) 0.5 mg IV Q6HR PRN PRN Reason: Pain, Moderate (4-6) Magnesium Sulfate 2 gm/ Folic Acid 1 mg/ Thiamine HCl 100 mg / Multivitamins 10 ml/ Sodium Chloride 1,015.2 mls @ 125 mls/hr IV NOW ONE Stop: 02/05/19 01:44 Lorazepam (Ativan) 0 mg IV CIWAPRN PRN; Protocol PRN Reason: Alcohol Withdrawal Multivitamins (Tab-A-Stephan) 1 tab PO DAILY [facility] Ondansetron HCl (Zofran) 4 mg IV Q6HR PRN PRN Reason: Nausea And Vomiting Oxycodone HCl (Percolone) 5 mg PO Q6HR PRN PRN Reason: Pain, Moderate (4-6) Pantoprazole Sodium (Protonix) 20 mg PO 0600 [facility] Potassium Chloride (Klor-Con M20) 40 meq PO BIDWM [facility] Sennosides (Senna) 17.2 mg PO BEDTIME VIANCA Spironolactone (Aldactone) 50 mg PO DAILY [facility] Thiamine HCl (Vitamin B-1) 100 mg PO DAILY VIANCA Stop: 02/08/19 09:01 Discontinued Medications Potassium Chloride/Sodium Chloride (Ns With Kcl 40 Meq) 1,000 mls @ 84 mls/hr IV CONT VIANCA Last Infusion: 02/04/19 17:33 Dose: 0 mls/hr Infusion: 02/04/19 17:32 Dose: 0 mls/hr Infusion: 02/04/19 16:32 Dose: 84 mls/hr Infusion: 02/04/19 13:19 Dose: 84 mls/hr Infusion: 02/04/19 12:35 Dose: 0 mls/hr Admin: 02/04/19 12:23 Dose: 84 mls/hr Calcium Gluconate 4.65 meq/ (Sodium Chloride) 60 mls @ 120 mls/hr IV NOW ONE Stop: 02/04/19 14:18 Last Infusion: 02/04/19 15:51 Dose: 0 mls/hr Admin: 02/04/19 15:03 Dose: 120 mls/hr Ondansetron HCl (Zofran) 4 mg IV Q8HR PRN PRN Reason: Nausea And Vomiting Potassium Chloride (Potassium Chloride) 40 meq PO NOW ONE Stop: 02/04/19 12:13 Last Admin: 02/04/19 12:22 Dose: 40 meq Vital Signs - 8 hr 02/04/19 11:37 02/04/19 12:00 02/04/19 13:17 Temperature 98.4 F Pulse Rate 107 H 95 H 88 Respiratory Rate 22 14 18 Blood Pressure 102/74 Blood Pressure [Left Arm] 105/80 104/74 Pulse Oximetry 96 94 94 02/04/19 15:00 02/04/19 15:14 02/04/19 15:30 Temperature Pulse Rate 81 88 Respiratory Rate 12 12 Blood Pressure Blood Pressure [Left Arm] 89/71 L 97/68 Pulse Oximetry 87 L 94 02/04/19 16:00 02/04/19 17:00 02/04/19 17:39 Temperature 97.7 F Pulse Rate 87 76 82 Respiratory Rate 11 L 20 Blood Pressure 93/54 L Blood Pressure [Left Arm] 89/64 L Pulse Oximetry 95 98 MDM - Weakness Lab Data Attestation: I reviewed the patient's lab results. Result diagrams: 02/04/19 11:41 02/04/19 18:30 Lab Results 02/04/19 02/04/19 02/04/19 Range/Units 11:41 11:41 11:41 WBC 6.6 (4.5-11.0) X10^3/uL RBC 2.84 L (4.5-5.9) X10^6/uL Hgb 10.4 L (13.5-17.5) g/dL Hct 30.3 L (41-53) % MCV 106.6 H (80-100) fL MCH 36.7 H (26-34) PG MCHC 34.4 (30-36) % RDW 16.1 H (11.6-14.8) % Plt Count 195 (150-400) X10^3/uL Neut % (Auto) 80.9 H (50-75) % Lymph % (Auto) 10.8 L (25-40) % Nicholas % (Auto) 7.7 (3-14) % Eos % (Auto) 0.1 L (2-4) % Baso % (Auto) 0.5 (0-2) % Neut # (Auto) 5400 (8224-3093) /uL Lymph # (Auto) 700 L (2679-1909) /uL Nicholas # (Auto) 500 (0-900) /uL Eos # (Auto) 0 (0-450) /uL Baso # (Auto) 0 (0-100) /uL PT 15.4 H (10.1-12.7) SECONDS INR 1.3 (0.9-1.3) APTT 33 (26.4-36.2) SECONDS Sodium 131 L (137-145) mmol/L Potassium 2.4 L* (3.4-5.1) mmol/L Chloride 90 L (98-107) mmol/L Carbon Dioxide 30 (22-32) mmol/L BUN 7 L (9-20) mg/dL Creatinine 1.40 H (0.66-1.25) mg/dL Estimated GFR 53.0 L (>60) mL/min BUN/Creatinine Ratio 5.0 L (6-22) Glucose 132 H (70-100) mg/dL Calcium 7.8 L (8.4-10.2) mg/dL Total Bilirubin 0.6 (0.2-1.3) mg/dL AST 87 H (17-59) IU/L ALT 18 L (21-72) IU/L Alkaline Phosphatase 184 H (38-126) U/L Ammonia (9-30) umol/L Total Creatine Kinase (55-170) U/L CK-MB (CK-2) (<2.37) ng/mL CK-MB (CK-2) Rel Index (1.5-5.0) % Troponin I (0.01-0.034) ng/mL B-Natriuretic Peptide (<100) Total Protein 6.9 (6.3-8.2) g/dL Albumin 2.6 L (3.5-5.0) g/dL Globulin 4.3 H (1.7-4.1) g/dL Albumin/Globulin Ratio 0.6 L (1.0-2.8) Lipase 93 (23-300) U/L Urine RBC (0-5/HPF) Urine WBC (0-5/HPF) Calcium Oxalate Crystal Amorphous Sediment Urine Bacteria (None) Ur Culture Indicated? 02/04/19 02/04/19 02/04/19 Range/Units 11:41 11:41 12:10 WBC (4.5-11.0) X10^3/uL RBC (4.5-5.9) X10^6/uL Hgb (13.5-17.5) g/dL Hct (41-53) % MCV (80-100) fL MCH (26-34) PG MCHC (30-36) % RDW (11.6-14.8) % Plt Count (150-400) X10^3/uL Neut % (Auto) (50-75) % Lymph % (Auto) (25-40) % Nicholas % (Auto) (3-14) % Eos % (Auto) (2-4) % Baso % (Auto) (0-2) % Neut # (Auto) (2667-0144) /uL Lymph # (Auto) (9010-4752) /uL Nicholas # (Auto) (0-900) /uL Eos # (Auto) (0-450) /uL Baso # (Auto) (0-100) /uL PT (10.1-12.7) SECONDS INR (0.9-1.3) APTT (26.4-36.2) SECONDS Sodium (137-145) mmol/L Potassium (3.4-5.1) mmol/L Chloride (98-107) mmol/L Carbon Dioxide (22-32) mmol/L BUN (9-20) mg/dL Creatinine (0.66-1.25) mg/dL Estimated GFR (>60) mL/min BUN/Creatinine Ratio (6-22) Glucose (70-100) mg/dL Calcium (8.4-10.2) mg/dL Total Bilirubin (0.2-1.3) mg/dL AST (17-59) IU/L ALT (21-72) IU/L Alkaline Phosphatase (38-126) U/L Ammonia < 9.0 L (9-30) umol/L Total Creatine Kinase 362 H (55-170) U/L CK-MB (CK-2) 0.81 (<2.37) ng/mL CK-MB (CK-2) Rel Index 0.2 L (1.5-5.0) % Troponin I 0.013 (0.01-0.034) ng/mL B-Natriuretic Peptide < 100 (<100) Total Protein (6.3-8.2) g/dL Albumin (3.5-5.0) g/dL Globulin (1.7-4.1) g/dL Albumin/Globulin Ratio (1.0-2.8) Lipase (23-300) U/L Urine RBC (0-5/HPF) Urine WBC (0-5/HPF) Calcium Oxalate Crystal Amorphous Sediment Urine Bacteria (None) Ur Culture Indicated? 02/04/19 02/04/19 Range/Units 13:09 18:30 WBC (4.5-11.0) X10^3/uL RBC (4.5-5.9) X10^6/uL Hgb (13.5-17.5) g/dL Hct (41-53) % MCV (80-100) fL MCH (26-34) PG MCHC (30-36) % RDW (11.6-14.8) % Plt Count (150-400) X10^3/uL Neut % (Auto) (50-75) % Lymph % (Auto) (25-40) % Nicholas % (Auto) (3-14) % Eos % (Auto) (2-4) % Baso % (Auto) (0-2) % Neut # (Auto) (1877-1689) /uL Lymph # (Auto) (7191-2074) /uL Nicholas # (Auto) (0-900) /uL Eos # (Auto) (0-450) /uL Baso # (Auto) (0-100) /uL PT (10.1-12.7) SECONDS INR (0.9-1.3) APTT (26.4-36.2) SECONDS Sodium 132 L (137-145) mmol/L Potassium 2.8 L (3.4-5.1) mmol/L Chloride 94 L (98-107) mmol/L Carbon Dioxide 31 (22-32) mmol/L BUN 7 L (9-20) mg/dL Creatinine 1.30 H (0.66-1.25) mg/dL Estimated GFR 57.7 L (>60) mL/min BUN/Creatinine Ratio 5.4 L (6-22) Glucose 103 H (70-100) mg/dL Calcium 7.6 L (8.4-10.2) mg/dL Total Bilirubin (0.2-1.3) mg/dL AST (17-59) IU/L ALT (21-72) IU/L Alkaline Phosphatase (38-126) U/L Ammonia (9-30) umol/L Total Creatine Kinase (55-170) U/L CK-MB (CK-2) (<2.37) ng/mL CK-MB (CK-2) Rel Index (1.5-5.0) % Troponin I (0.01-0.034) ng/mL B-Natriuretic Peptide (<100) Total Protein (6.3-8.2) g/dL Albumin (3.5-5.0) g/dL Globulin (1.7-4.1) g/dL Albumin/Globulin Ratio (1.0-2.8) Lipase (23-300) U/L Urine RBC 0-1/hpf (0-5/HPF) Urine WBC 5-10/hpf H (0-5/HPF) Calcium Oxalate Crystal Few H Amorphous Sediment 1+ Urine Bacteria Few (2-10) H (None) Ur Culture Indicated? Specimen cultured Urine Dip Bedside Urine Glucose Negative Bedside Urine Bilirubin + 1 Bedside Urine Ketone +/- 5 Urine Specific Jackson 1.025 Bedside Urine Occult Blood - Negative Bedside Urine pH 5.0 Bedside Urine Protein + 30 Bedside Urine Urobilinogen 1+ 2mg Bedside Urine Nitrite - Negative Bedside Urine Leukocytes +++ [address] scan - head: Radiologist's impression: [address] [address] [address] Scan Report Signed Patient: Danny Webber KMR#: [id number] : 1965Acct:[id number] Age/Sex: 53 / MDate of Service: 02/04/19 Loc: ED Accession Number: [id number] Procedure: CT head/brain wo con Ordering Provider: Bev Nunez D.O. PROCEDURE: CT HEAD/BRAIN WO CON INDICATIONS: multiple falls, confusion, liver failure TECHNIQUE: Noncontrast 4.5 mm thick angled axial sections acquired from the foramen magnum to the vertex, with coronal and sagittal reformats. For radiation dose reduction, the following was used: automated exposure control, adjustment of mA and/or kV according to patient size. COMPARISON: [facility], MR, MR HEAD/BRAIN WO CON, 06/23/2018, 8:04. FINDINGS: Image quality: Diagnostic. CSF spaces: Basal cisterns are patent. No extra-axial fluid collections. Ventricles are moderately prominent with corresponding parenchymal volume loss. Brain: No midline shift. No intracranial masses or hemorrhage. Triplett-white matter interface is normal. Areas of low-attenuation are seen within the periventricu lar and deep white matter of the supratentorial brain. This is similar to the prior MRI. Skull and face: Calvarium and visualized facial bones are intact, without suspicious lesions. Sinuses: Visualized sinuses and mastoids are clear. IMPRESSION: 1. No acute intracranial hemorrhage. 2. Chronic small vessel ischemic changes and parenchymal volume loss are similar to the previous MRI. Dictated by: Larry Price M.D. on 02/04/2019 at 12:03 Approved by: Larry Price M.D. on 02/04/2019 at 12:05 US - abdomen: Radiologist's impression: [address] [address] Ultrasound Report Signed Patient: Danny Webber KMR#: [id number] : 1965Acct:[id number] Age/Sex: 53 / MDate of Service: 02/04/19 Loc: ED Accession Number: [id number] Procedure: US abdomen limited Ordering Provider: Bev Nunez D.O. PROCEDURE: US ABDOMEN LIMITED INDICATIONS: ASCITIES; SUSPECTED LIVER FAILURE TECHNIQUE: Limited sonographic evaluation of the abdomen was performed. COMPARISON: None. FINDINGS: A large amount of ascites is identified diffusely throughout the abdomen. The liver is heterogeneous and nodular. Evaluation for subtle liver lesions is not adequate. Please note that the other abdominal organs were not imaged. . IMPRESSION: 1. Cirrhotic liver morphology. Please correlate clinically. 2. Extensive ascites. Dictated by: Larry Price M.D. on 02/04/2019 at 12:43 Approved by: Larry Price M.D. on 02/04/2019 at 12:44 Chest x-ray: Radiologist's impression: [place] [address] XRay Report Signed Patient: Danny Webber KMR#: [id number] : 1965Acct:[id number] Age/Sex: 53 / MDate of Service: 02/04/19 Loc: ED Accession Number: [id number] Procedure: XR ribs BI min 4V w CXR1V Ordering Provider: Bev Nunez D.O. PROCEDURE: XR RIBS BI MIN 4V W CXR1V INDICATIONS: multiple falls, contusions and pain in rib areas, SOB TECHNIQUE: 4 views of the bilateral ribs were acquired, along with a single view chest. COMPARISON: None. FINDINGS: Surgical changes and devices: None. Bones and chest wall: No displaced fractures or dislocations. No suspicious bony lesions. Overlying soft tissues appear unremarkable. Lungs and pleura: No pleural effusions or pneumothorax. Minimal consolidation at the left lung base is present. Mediastinum: Mediastinal contours appear normal. Heart size is normal. IMPRESSION: 1. No displaced rib fractures are evident. 2. Left basilar atelectasis. Dictated by: Larry Price M.D. on 02/04/2019 at 12:01 Approved by: Larry Price M.D. on 02/04/2019 at 12:03 ECG Data Attestation: I personally reviewed and interpreted this ECG as follows: Interpretation: Sinus rhythm rate of 94 P are 188 QRS of 92 and QTC of [address] elevation depression appreciated. MDM Narrative Medical decision making narrative: Patient hypokalemia, patient received IV potassium as well as a single dose of oral. Likely need monitoring and repeat dosing as well as repeat potassium levels. Calcium is also low. Patient has multiple electrolyte abnormalities, possible acute kidney injury versus chronic. He is anemic, patient's no known or melanotic or hematochezia. Patient has had shortness of breath with swelling in his lower extremities and worsening ascites per patient family. He is also increasing confusion although his ammonia is in a normal range. He has had multiple falls so head CT was ordered, abdominal ultrasound was performed and showed changes in the liver as well as ascites. A chest and abdominal x-ray shows some atelectasis but no lower effusions. Patient does not appear to be any major distress and likely all of his symptoms were and objective findings are secondary to his continued alcohol use. Meld score is 18. Spoke with Dr. Martinez from GI at [facility], states patient just needs to have his electrolytes replaced and can follow up outpatient with the clinic. Does not feel that he need to be at a facility with GI available. Spoke with Dr. Sarkar who accepts. Discharge Plan Departure Patient Disposition: Admitted as Observation Clinical Impression: Hypokalemia, Hypocalcemia, Cirrhosis Discharge Date/Time: 02/04/19 16:33 Interventions: ED Discharge Assessment Last Done: 02/04/19 16:33 Admit Date/Time: 02/04/19 15:34 Admit Provider: Sheila Sarkar
[2019-02-04 13:43] LABS: Creatine Kinase 362 U/L (55-170)
[2019-02-04 13:45] LABS: Amorphous Sediment Urine 1+; Bacteria Urine Few (2-10); Calcium Oxalate Crystals Urine Few; Culture Indicated Urine Specimen Cultured; RBC Urine 0-1/HPF (0-5/HPF); WBC Urine 5-10/HPF (0-5/HPF)
[2019-02-04 13:55] LABS: Troponin I 0.013 ng/mL (0.01-0.034)
[2019-02-04 13:57] LABS: B Type Natriuretic Peptide < 100 (<100)
[2019-02-04 13:58] LABS: CKMB % Relative Index 0.2 % (1.5-5.0); Creatine Kinase MB 0.81 ng/mL (<2.37)
[2019-02-04] MEDS: CALCIUM GLUCONATE 4.65 MEQ in SODIUM CHLORIDE 0.9% 50 ML 120 ML IV (15:03)
--- NOTE | 2019-02-04 17:05 | PC.NURSE ---
Addendum entered by Lanie Alcantar R.N. 02/04/19 22:58: 1L 02 per nc sats 94%. Eyes closed resting quietly in bed without signs of distress or discomfort. Addendum entered by Lanie Alcantar R.N. 02/04/19 19:51: Meds given late d/t delay in verification. This was discussed with process area supervisor, Myla, who phone [facility] for clarification. Addendum entered by Lanie Alcantar R.N. 02/04/19 18:32: Educated pt and pt's spouse on low sodium diet and rationale for such. Seizure pads in place. CIWA=0. Addendum entered by Lanie Alcantar R.N. 02/04/19 17:30: Dr. Sarkar in to see patient. Pt heplocked by float RN, Leisa. Original Note: Pt to room 214 from E.R. awake and alert. Pt is pale. Scattered areas of ecchymosis to all extremities and left posterior thoracic region. Pt admits to history of falls. States pain all over 10. Tele in place. S.O. present @ bedside and assists with admission assessment. Pt has difficulty ambulating and moving legs into bed. Requires assistance. 2-3+ pitting edema to BL LE's. Bed alarm in place. 02 2L nc sats 99%. Distended abdomen with positive bowel tones. Denies nausea.
--- NOTE | 2019-02-04 17:24 | PC.ADMIT ---
Admission Note: Pt alert, intermittently confused. TABLE MOUNTAIN. Reports generalized pain /10. Spouse and daughter present at bedside. Pt has no belongings with him. Oriented to room/call light. IV site x 2, patent. History of falls/bed alarm on. Visible from nurses station. [address] The patient,Danny Webber,53 y/o, was given written information regarding hospital policies, unit procedures and contact persons. Patient's smoking status: Current every day smoker. Vital Signs - 8 hr 02/04/19 11:37 02/04/19 12:00 02/04/19 13:17 Temperature 98.4 F Pulse Rate 107 H 95 H 88 Respiratory Rate 22 14 18 Blood Pressure 102/74 Blood Pressure [Left Arm] 105/80 104/74 Pulse Oximetry 96 94 94 02/04/19 15:00 02/04/19 15:14 02/04/19 15:30 Temperature Pulse Rate 81 88 Respiratory Rate 12 12 Blood Pressure Blood Pressure [Left Arm] 89/71 L 97/68 Pulse Oximetry 87 L 94 02/04/19 16:00 Temperature Pulse Rate 87 Respiratory Rate 11 L Blood Pressure Blood Pressure [Left Arm] 89/64 L Pulse Oximetry 95
--- NOTE | 2019-02-04 17:56 | DI.US.S_ITS ---
PROCEDURE: US PARACENTESIS INDICATIONS: ASCITES TECHNIQUE: The indications, alternatives, benefits, risks, and complications of the procedure were explained to the patient. Written informed consent was obtained and placed in the chart. The abdomen and pelvis were examined sonographically, and an appropriate site was chosen for paracentesis. The skin was prepared and draped in the usual sterile fashion, and 1% lidocaine was infiltrated from the skin down through the peritoneal surface. A 19-gauge catheter-covered needle was then introduced into the peritoneal space, the catheter was advanced and the needle was withdrawn, and thereafter peritoneal fluid was withdrawn. The catheter was then removed and a dressing was applied. The fluid was discarded if the clinician did not order diagnostic testing of the fluid. COMPARISON: None. FINDINGS: Access site: Right lateral pelvis body wall Needle: One-Step centesis catheter with introducer needle. Fluid volume and description: 4000 cc, serous Fluid sent for diagnostic testing: Not requested Medications: 1% lidocaine for local anaesthesia. Complications: None. IMPRESSION: Successful ultrasound-guided paracentesis. Dictated by: Jacob Miranda M.D. on 02/05/2019 at 17:23 Approved by: Jacob Miranda M.D. on 02/05/2019 at 17:24
--- NOTE | 2019-02-04 18:03 | PM.HP.1 ---
History of Present Illness Date Patient Seen: 02/04/19 Chief complaint: Chronic pain,swollen legs,fatigue Narrative: The patient is a 53-year-old male with a history of liver disease secondary to alcohol, chronic alcohol abuse, GERD who presented to report to senior living as he was instructed to do. The patient was evaluated by a nurse at the senior living who referred him directly to the emergency department. The patient is a somewhat difficult historian. He reports 60 lb weight loss over the past several years. He reports shortness of breath which is worse with exertion. He denies any orthopnea. He has lower extremity edema which has been present for some time. In addition he reports increasing abdominal girth. He reports some tenderness with the swelling of his abdomen as well. He has not had any hematemesis, or bright red blood per rectum. He does report black stool which occurred the past day or so. In addition he reports constipation. The patient has had no fever or chills. He denies any chest pain. He has no headache does report blurred vision. He has had multiple fall and was evaluated in the emergency room with x-rays which were negative the patient reports drinking daily. He is unable to quantify how much alcohol he drinks he does report no prior history of alcohol withdrawal. He has not been hospitalized ever. Patient was seen and evaluated in the emergency department. Was found to have a potassium of 2.4. In addition he was found to have significant ascites S and progressive renal failure. He is admitted to the hospital for further evaluation. Patient reports he ran out of his medications 2 days ago and has not taken them since that time. Patient History Medical History Ankle pain (Chronic 2017) Anxiety (Chronic) Cervical spine disease (Chronic 2003) Chronic back pain (Chronic) GERD (gastroesophageal reflux disease) (Chronic 2004) Hearing loss (Chronic) Lumbar spine pain (Chronic) Recurrent sinusitis (Chronic) Rheumatoid arthritis (Chronic) Seizures (Chronic) Sleep apnea (Chronic 2004) PTSD (post-traumatic stress disorder) (Suspected) Abnormal chest x-ray (Resolved 2015) Foot pain (Resolved) Fractures (Resolved) Hemorrhoids (Resolved 1987) History of head injury (Resolved) History of spleen injury (Resolved) Surgical History Anesthesia (Resolved) Hx of surgical procedure (Resolved ~2004) Social History household members: spouse and children Smoking Status: Current every day smoker Tobacco: How many years used: 10 alcohol intake: current Family & Social History Family History (Updated 02/04/19 @ 18:06 by Sheila Sarkar MD) Mother Heart disease Social History: household members spouse,children Prior Living Arrangements House Safety & Behavioral: Feels Safe in Current Yes Environment Been Physically Hurt or No Threatened By a Person Suicidal Ideation Description None Tobacco & Substance use: Tobacco type cigarettes Smoking Status Current every day smoker Smoking packs per day 1.5 alcohol intake current alcohol intake frequency 0-2 drinks per day Substance Use Type does not use Meds Home Medications Medication Instructions Recorded Confirmed Type polyethylene glycol 3350 17 gram 17 gram PO DAILY #30 each 06/19/18 02/04/19 Rx oral powder packet furosemide 20 mg tablet 20 mg PO DAILY #90 tab 06/29/18 02/04/19 Rx esomeprazole magnesium [Nexium] 20 mg PO DAILY PRN 07/18/18 02/04/19 History trazodone 50 mg tablet 50 mg PO DAILY #30 tab 08/02/18 02/04/19 Rx aspirin 325 mg PO DAILY 02/04/19 02/04/19 History multivitamin,[id number] 1 tab PO DAILY 02/04/19 02/04/19 History [Complete Multivitamin] potassium 99 mg PO DAILY 02/04/19 02/04/19 History Allergies Allergy/AdvReac Type Severity Reaction Status Date / Time Penicillins Allergy Mild unkown, Verified 02/04/19 11:36 childhood Review of Systems Review of Systems All systems reviewed & are unremarkable except as noted in HPI and below Exam Vital Signs (past 8 hours): - 02/04/19 11:37 02/04/19 12:00 02/04/19 13:17 Temperature 98.4 F Pulse Rate 107 H 95 H 88 Respiratory Rate 22 14 18 Blood Pressure 102/74 Blood Pressure [Left Arm] 105/80 104/74 Pulse Oximetry 96 94 94 02/04/19 15:00 02/04/19 15:14 02/04/19 15:30 Temperature Pulse Rate 81 88 Respiratory Rate 12 12 Blood Pressure Blood Pressure [Left Arm] 89/71 L 97/68 Pulse Oximetry 87 L 94 02/04/19 16:00 02/04/19 17:00 02/04/19 17:39 Temperature 97.7 F Pulse Rate 87 76 82 Respiratory Rate 11 L 20 Blood Pressure 93/54 L Blood Pressure [Left Arm] 89/64 L Pulse Oximetry 95 98 Oxygen Delivery Method Nasal Cannula Oxygen Flow Rate 2 Narrative Exam Narrative: Ill-appearing male HEENT: Normocephalic atraumatic, extraocular muscles are intact, there is no scleral icterus, oropharynx is clear, neck is supple without adenopathy Lungs: Decreased breath sounds and clear to auscultation Cardiac exam: Regular rate and rhythm normal S1-S2 with a 2/6 systolic ejection Abdomen: Soft distended, tympanic, positive fluid wave, no hepatosplenomegaly noted, no palpable masses, no board-like rigidity, no rebound tenderness Extremities: 2 to 3+ pitting edema bilaterally, no asterixis Neuro exam the patient is confused but conversant, cranial nerves are intact, strength is symmetric and equal, sensation is grossly intact Skin exam: Multiple bruises on the upper extremity Psychiatric exam no evidence of hallucination, the patient answers questions appropriately, mood appears appropriate Objective Labs Result Diagrams: 02/04/19 11:41 02/04/19 11:41 Labs: Laboratory Results - last 24 hr 02/04/19 02/04/19 02/04/19 11:41 11:41 11:41 WBC 6.6 RBC 2.84 L Hgb 10.4 L Hct 30.3 L MCV 106.6 H MCH 36.7 H MCHC 34.4 RDW 16.1 H Plt Count 195 Neut % (Auto) 80.9 H Lymph % (Auto) 10.8 L Mitchell % (Auto) 7.7 Eos % (Auto) 0.1 L Baso % (Auto) 0.5 Neut # (Auto) 5400 Lymph # (Auto) 700 L Mitchell # (Auto) 500 Eos # (Auto) 0 Baso # (Auto) 0 PT 15.4 H INR 1.3 APTT 33 Sodium 131 L Potassium 2.4 L* Chloride 90 L Carbon Dioxide 30 BUN 7 L Creatinine 1.40 H Estimated GFR 53.0 L BUN/Creatinine Ratio 5.0 L Glucose 132 H Calcium 7.8 L Total Bilirubin 0.6 AST 87 H ALT 18 L Alkaline Phosphatase 184 H Ammonia Total Creatine Kinase CK-MB (CK-2) CK-MB (CK-2) Rel Index Troponin I B-Natriuretic Peptide Total Protein 6.9 Albumin 2.6 L Globulin 4.3 H Albumin/Globulin Ratio 0.6 L Lipase 93 Urine RBC Urine WBC Calcium Oxalate Crystal Amorphous Sediment Urine Bacteria Ur Culture Indicated? 02/04/19 02/04/19 02/04/19 11:41 11:41 12:10 WBC RBC Hgb Hct MCV MCH MCHC RDW Plt Count Neut % (Auto) Lymph % (Auto) Mitchell % (Auto) Eos % (Auto) Baso % (Auto) Neut # (Auto) Lymph # (Auto) Mitchell # (Auto) Eos # (Auto) Baso # (Auto) PT INR APTT Sodium Potassium Chloride Carbon Dioxide BUN Creatinine Estimated GFR BUN/Creatinine Ratio Glucose Calcium Total Bilirubin AST ALT Alkaline Phosphatase Ammonia < 9.0 L Total Creatine Kinase 362 H CK-MB (CK-2) 0.81 CK-MB (CK-2) Rel Index 0.2 L Troponin I 0.013 B-Natriuretic Peptide < 100 Total Protein Albumin Globulin Albumin/Globulin Ratio Lipase Urine RBC Urine WBC Calcium Oxalate Crystal Amorphous Sediment Urine Bacteria Ur Culture Indicated? 02/04/19 13:09 WBC RBC Hgb Hct MCV MCH MCHC RDW Plt Count Neut % (Auto) Lymph % (Auto) Mitchell % (Auto) Eos % (Auto) Baso % (Auto) Neut # (Auto) Lymph # (Auto) Mitchell # (Auto) Eos # (Auto) Baso # (Auto) PT INR APTT Sodium Potassium Chloride Carbon Dioxide BUN Creatinine Estimated GFR BUN/Creatinine Ratio Glucose Calcium Total Bilirubin AST ALT Alkaline Phosphatase Ammonia Total Creatine Kinase CK-MB (CK-2) CK-MB (CK-2) Rel Index Troponin I B-Natriuretic Peptide Total Protein Albumin Globulin Albumin/Globulin Ratio Lipase Urine RBC 0-1/hpf Urine WBC 5-10/hpf H Calcium Oxalate Crystal Few H Amorphous Sediment 1+ Urine Bacteria Few (2-10) H Ur Culture Indicated? Specimen cultured Assessment & Plan Assessment & Plan narrative: 1. 59-year-old male with a history of chronic alcohol use and evidence of liver disease who presents with shortness of breath, ascites, lower extremity edema, and hypokalemia. The patient also reports melanotic stool. He has not had any vomiting of blood. 2. Alcohol dependence, high risk for alcohol withdrawal syndrome. Despite this the patient has not ever had DTs. He has been placed on a CIWA protocol. In addition the patient will be given a banana bag. He will be started on spironolactone. 3. Hypokalemia-patient received potassium in the emergency department, he will receive additional potassium here, will repeat labs and follow up accordingly 4. Ascites-patient to have abdominal ultrasound tomorrow for paracentesis. Will start spironolactone. Will arrange for albumin prior to his paracentesis 5. Melanotic stool, will guaiac his stool, recheck his hematocrit, consider endoscopy and colonoscopy him the hospital if he is determined to be guaiac-positive 6. Lower extremity edema, suspect related to his underlying liver disease. Will defer diuresis at this time 7. Acute kidney, etiology unclear. Patient has received IV hydration in the emergency department and will receive banana bag this evening. Will recheck lytes in the morning in addition to his creatinine. The patient reports he is DNR. Will note that his record accordingly 6.
[2019-02-04 18:48] LABS: BUN Creatinine Ratio 5.4 (6-22); Blood Urea Nitrogen 7 mg/dL (9-20); Calcium 7.6 mg/dL (8.4-10.2); Carbon Dioxide 31 mmol/L (22-32); Chloride 94 mmol/L (98-107); Estimated Glomerular Filt Rate 57.7 mL/min (>60); Glucose 103 mg/dL (70-100); HEMOLYSIS < 15 (0-50); Potassium 2.8 mmol/L (3.4-5.1); Sodium 132 mmol/L (137-145)
[2019-02-04] MEDS: MAGNESIUM SULFATE 2 GM, FOLIC ACID 1 MG, THIAMINE 100 MG, MULTIVITAMIN 10 ML in SODIUM ... IV (19:33)
[2019-02-04] MEDS: PANTOPRAZOLE 20 MG TABLET PO (19:34)
[2019-02-04] MEDS: POTASSIUM CHLORIDE 20 MEQ TAB 40 MEQ PO (19:35)
[2019-02-04] MEDS: SPIRONOLACTONE 50 MG TABLET PO (19:37)
[2019-02-04] MEDS: DOCUSATE 100 MG CAPSULE PO (19:38)
[2019-02-04] MEDS: OXYCODONE IR 5 MG TABLET PO (19:56)
[2019-02-05] VITALS (16 sets, daily range): BP systolic 80–114; BP diastolic 56–75; PULSE 78–90; RESP 16–86; TEMP 36.6–36.9; O2SAT 93–96
--- NOTE | 2019-02-05 00:59 | PC.NURSE ---
Addendum entered by Ana María Anderson R.N. 02/05/19 07:04: Bolus infused and BP 86/61. Addendum entered by Ana María Anderson R.N. 02/05/19 06:30: Order received for IVF bolus; started as ordered. BP now 81/60 Addendum entered by Ana María Anderson R.N. 02/05/19 06:14: Complained of 8/10 generalized pain so administered IV Dilaudid since patient is NPO. Shortly after, PRODUCT HANDLER checked BP and was low at 85/57 on left arm and 80/62 on right arm. MELBA James notified. Original Note: Patient oriented except identified month as May. Breath sounds diminished throughout with RA sat of 93% (found with NC out of nose). HRR and telemetry reading was SR. BP low at 99/75. Denies nausea. BT hypoactive; abdomen distended with ascites. States he has urinary urgency; using urinal and urine is very dark ravindra. Is able to turn himself. Has not been out of bed due to weakness. Bruising present on all extremities and left posterior ribs; reports frequent falls. 1+ edema in bilateral LE; wearing KRYSTLE stockings. States bilateral feet are numb due to swelling. CIWA score is 0. Seizure pads are on bed. Denies pain at this time. Fall risk score is high and bed alarm is activated. NPO for possible paracentesis in a.m.
[2019-02-05 05:59] LABS: Add Manual Diff / Slide Review NO; Basophils Absolute Auto 100 /uL (0-100); Basophils Percent Auto 1.3 % (0-2); Eosinophils Absolute Auto 100 /uL (0-450); Eosinophils Percent Auto 1.7 % (2-4); Hematocrit 24.3 % (41-53); Hemoglobin 8.3 g/dL (13.5-17.5); Lymphocytes Absolute Auto 1000 /uL (1100-4500); Lymphocytes Percent Auto 23.5 % (25-40); Mean Corpuscular HGB Conc 34.2 % (30-36); Mean Corpuscular Hemoglobin 36.5 PG (26-34); Mean Corpuscular Volume 106.5 fL (80-100); Monocytes Absolute Auto 300 /uL (0-900); Monocytes Percent Auto 8.4 % (3-14); Neutrophils Absolute Auto 2700 /uL (1500-7000); Neutrophils Percent Auto 65.1 % (50-75); Platelet Count 139 X10^3/uL (150-400); Red Blood Cell Count 2.28 X10^6/uL (4.5-5.9); Red Cell Distribution Width 15.9 % (11.6-14.8); White Blood Cell Count 4.2 X10^3/uL (4.5-11.0)
[2019-02-05 06:04] LABS: INR 1.3 (0.9-1.3)
[2019-02-05] MEDS: HYDROMORPHONE 1 MG INJ 0.5 MG IV ×2 (06:05→21:15)
[2019-02-05 06:06] LABS: PTT Partial Thromboplastin Tim 31 SECONDS (26.4-36.2)
[2019-02-05] MEDS: SODIUM CHLORIDE 0.9% FLUSH 10 ML IV ×4 (06:06→21:09)
[2019-02-05 06:10] LABS: Alanine Aminotransferase 21 IU/L (21-72); Albumin 1.9 g/dL (3.5-5.0); Albumin Globulin Ratio 0.6 (1.0-2.8); Alkaline Phosphatase 121 U/L (38-126); Aspartate Aminotransferase 57 IU/L (17-59); BUN Creatinine Ratio 5.8 (6-22); Bilirubin Total 0.3 mg/dL (0.2-1.3); Blood Urea Nitrogen 7 mg/dL (9-20); Calcium 7.2 mg/dL (8.4-10.2); Carbon Dioxide 29 mmol/L (22-32); Chloride 97 mmol/L (98-107); Estimated Glomerular Filt Rate > 60.0 mL/min (>60); Globulin 3.4 g/dL (1.7-4.1); Glucose 91 mg/dL (70-100); HEMOLYSIS < 15 (0-50); Total Protein 5.3 g/dL (6.3-8.2)
[2019-02-05] MEDS: SODIUM CHLORIDE 0.9% 500 ML 1000 ML IV (06:25)
[2019-02-05 06:32] LABS: Potassium 2.8 mmol/L (3.4-5.1); Sodium 133 mmol/L (137-145)
[2019-02-05 07:21] LABS: Thyroid Stimulating Hormone 3.15 uIU/mL (0.47-4.68)
[2019-02-05] MEDS: POTASSIUM CHLORIDE 20 MEQ/15 ML UDC 40 MEQ PO (08:34)
--- NOTE | 2019-02-05 09:35 | PC.NURSE ---
Confirmed that Dr. Sarkar was aware of continued low BP's. Patient remains without complaint at this time. Dr. Sarkar reports its ok for him to take his oral medicaitons.
[2019-02-05] MEDS: POTASSIUM CHLORIDE 20 MEQ TAB 40 MEQ PO ×2 (09:49→18:12)
[2019-02-05] MEDS: FOLIC ACID 1 MG TABLET PO (09:49)
[2019-02-05] MEDS: MULTIVITAMIN 1 TABLET 1 TAB PO (09:49)
[2019-02-05] MEDS: THIAMINE 100 MG TABLET PO (09:49)
[2019-02-05] MEDS: PANTOPRAZOLE 20 MG TABLET PO (09:49)
[2019-02-05] MEDS: DOCUSATE 100 MG CAPSULE PO ×2 (09:49→21:08)
--- NOTE | 2019-02-05 10:42 | PT-IP ANOTE ---
Pt not medically appropriate to participate in PT/OT assessment at this time with low BPs and low BG. Will check back later today or tomorrow.
--- NOTE | 2019-02-05 10:52 | P.PN_ITS ---
Subjective Date Patient Seen: 02/05/19 Interval history: The patient is a 53-year-old male admitted to the hospital for profound hypokalemia, ascites, alcoholic liver disease and shortness of breath. Today the patient reports that he feels better. He denies any shortness of breath. He continues to have abdominal distension. With leg elevation his lower extremity edema has improved. He is awaiting ultrasound-guided paracentesis for today. The patient is hypotensive. However he appears to be asymptomatic. Exam Vital Signs (past 8 hours): - 02/05/19 05:42 02/05/19 06:10 02/05/19 06:21 Temperature 98.3 F Pulse Rate 85 78 81 Respiratory Rate 18 Blood Pressure 87/59 L 80/62 L 85/57 L Pulse Oximetry 94 02/05/19 06:32 02/05/19 07:00 02/05/19 07:45 Temperature 97.9 F Pulse Rate 84 85 87 Respiratory Rate 16 Blood Pressure 98/56 L 86/61 L 83/63 L Pulse Oximetry 95 Oxygen Delivery Method Room Air Oxygen Flow Rate 1 Narrative Exam Narrative: Ill-appearing male lying in bed in no obvious distress Lungs: Decreased breath sounds with scattered basilar crackles Cardiac exam: Abdomen distended, tympanic, soft, positive fluid wave, no palpable mass Extremity: Tender to palpation, 1 to 2+ edema bilateral Objective Labs Result Diagrams: 02/05/19 05:20 02/05/19 05:20 Labs: Laboratory Results - last 24 hr 02/04/19 02/04/19 02/04/19 11:41 11:41 11:41 WBC 6.6 RBC 2.84 L Hgb 10.4 L Hct 30.3 L MCV 106.6 H MCH 36.7 H MCHC 34.4 RDW 16.1 H Plt Count 195 Neut % (Auto) 80.9 H Lymph % (Auto) 10.8 L Andrews % (Auto) 7.7 Eos % (Auto) 0.1 L Baso % (Auto) 0.5 Neut # (Auto) 5400 Lymph # (Auto) 700 L Andrews # (Auto) 500 Eos # (Auto) 0 Baso # (Auto) 0 PT 15.4 H INR 1.3 APTT 33 Sodium 131 L Potassium 2.4 L* Chloride 90 L Carbon Dioxide 30 BUN 7 L Creatinine 1.40 H Estimated GFR 53.0 L BUN/Creatinine Ratio 5.0 L Glucose 132 H Calcium 7.8 L Magnesium Total Bilirubin 0.6 AST 87 H ALT 18 L Alkaline Phosphatase 184 H Ammonia Total Creatine Kinase CK-MB (CK-2) CK-MB (CK-2) Rel Index Troponin I B-Natriuretic Peptide Total Protein 6.9 Albumin 2.6 L Globulin 4.3 H Albumin/Globulin Ratio 0.6 L Lipase 93 TSH Urine RBC Urine WBC Calcium Oxalate Crystal Amorphous Sediment Urine Bacteria Ur Culture Indicated? 02/04/19 02/04/19 02/04/19 11:41 11:41 12:10 WBC RBC Hgb Hct MCV MCH MCHC RDW Plt Count Neut % (Auto) Lymph % (Auto) Andrews % (Auto) Eos % (Auto) Baso % (Auto) Neut # (Auto) Lymph # (Auto) Andrews # (Auto) Eos # (Auto) Baso # (Auto) PT INR APTT Sodium Potassium Chloride Carbon Dioxide BUN Creatinine Estimated GFR BUN/Creatinine Ratio Glucose Calcium Magnesium Total Bilirubin AST ALT Alkaline Phosphatase Ammonia < 9.0 L Total Creatine Kinase 362 H CK-MB (CK-2) 0.81 CK-MB (CK-2) Rel Index 0.2 L Troponin I 0.013 B-Natriuretic Peptide < 100 Total Protein Albumin Globulin Albumin/Globulin Ratio Lipase TSH Urine RBC Urine WBC Calcium Oxalate Crystal Amorphous Sediment Urine Bacteria Ur Culture Indicated? 02/04/19 02/04/19 02/05/19 13:09 18:30 05:20 WBC 4.2 L RBC 2.28 L Hgb 8.3 L Hct 24.3 L MCV 106.5 H MCH 36.5 H MCHC 34.2 RDW 15.9 H Plt Count 139 L Neut % (Auto) 65.1 Lymph % (Auto) 23.5 L Andrews % (Auto) 8.4 Eos % (Auto) 1.7 L Baso % (Auto) 1.3 Neut # (Auto) 2700 Lymph # (Auto) 1000 L Andrews # (Auto) 300 Eos # (Auto) 100 Baso # (Auto) 100 PT INR APTT Sodium 132 L Potassium 2.8 L Chloride 94 L Carbon Dioxide 31 BUN 7 L Creatinine 1.30 H Estimated GFR 57.7 L BUN/Creatinine Ratio 5.4 L Glucose 103 H Calcium 7.6 L Magnesium Total Bilirubin AST ALT Alkaline Phosphatase Ammonia Total Creatine Kinase CK-MB (CK-2) CK-MB (CK-2) Rel Index Troponin I B-Natriuretic Peptide Total Protein Albumin Globulin Albumin/Globulin Ratio Lipase TSH Urine RBC 0-1/hpf Urine WBC 5-10/hpf H Calcium Oxalate Crystal Few H Amorphous Sediment 1+ Urine Bacteria Few (2-10) H Ur Culture Indicated? Specimen cultured 02/05/19 02/05/19 02/05/19 05:20 05:20 05:20 WBC RBC Hgb Hct MCV MCH MCHC RDW Plt Count Neut % (Auto) Lymph % (Auto) Andrews % (Auto) Eos % (Auto) Baso % (Auto) Neut # (Auto) Lymph # (Auto) Andrews # (Auto) Eos # (Auto) Baso # (Auto) PT 15.0 H INR 1.3 APTT 31 D Sodium 133 L Potassium 2.8 L Chloride 97 L Carbon Dioxide 29 BUN 7 L Creatinine 1.20 Estimated GFR > 60.0 BUN/Creatinine Ratio 5.8 L Glucose 91 Calcium 7.2 L Magnesium 2.0 Total Bilirubin 0.3 AST 57 ALT 21 Alkaline Phosphatase 121 D Ammonia Total Creatine Kinase CK-MB (CK-2) CK-MB (CK-2) Rel Index Troponin I B-Natriuretic Peptide Total Protein 5.3 L Albumin 1.9 L Globulin 3.4 Albumin/Globulin Ratio 0.6 L Lipase TSH 3.15 Urine RBC Urine WBC Calcium Oxalate Crystal Amorphous Sediment Urine Bacteria Ur Culture Indicated? Assessment & Plan Assessment & Plan narrative: 1. 53-year-old male admitted to the hospital with profound hypokalemia. Despite aggressive replacement the patient continues to b e hypokalemic. Will continue to replace his potassium. Will replace magnesium as appropriate. The patient has been started on spironolactone for his ascites which should help improve his potassium as well. 2. Abdominal ascites, secondary to liver disease, awaiting paracentesis today 3. Hypotension, likely related to underlying liver disease, the patient is anemic and has hypoproteinemia. He will receive IV albumin for his paracentesis today. 4. Anemia, suspect chronic, no evidence of bleeding, the patient will have his stools guaiac. Will transfuse 1 unit of blood. 5. Hyponatremia, chronic, likely related to volume overload ( 3rd spacing from low protein state) 6 Weakness-Will ask PT to evaluate 7. Shortness of breath- Multifactorial, likely secondary to Ascites and 3rd spaced fluid.
--- NOTE | 2019-02-05 11:18 | PC.NURSE ---
Spironolactone held until clarified with
--- NOTE | 2019-02-05 13:30 | OT.IP.TRT ---
Current Diagnoses Hypokalemia (02/04/19) Occupational Therapy Treatment Note M3 OT- IP Subjective and Pain Start: 02/05/19 15:01 Freq: Status: Active Protocol: Document 02/05/19 15:01 NINA (Rec: 02/05/19 15:02 NINA [id number]) OT- Subjective Occupational Therapy Visit Type Type Administrative Note Visit Start Time 13:30 Notes Attempted to see pt x2 today, but pt remains hypotensive with low H&H and transfusion planned for this PM per RN. Will hold OT evaluation today due to medical status and attempt again in AM.
--- NOTE | 2019-02-05 13:34 | DIET.PN ---
Dietary Progress Note Assessment: 53y M referred to RD for MNA score 7 (malnourished) with reported 60# wt loss HT: 182.8cm WT: 84.5kg note pt has +1/+2 pitting edema and abd ascites so wt is skewed BMI: 25 Usual Body Wt: 91-100kg Pt admitted to the hospital for profound hypokalemia, ascites, alcoholic liver disease and shortness of breath. Also anemic. Current diet order is Low Sodium. Pt and family report his appetite started decreasing 2y ago with marked decrease and associated wt loss (60#) in the past 6mo. Family reports no food insecurity. Pt hungry today, has sweet tooth, enjoys: candy, fruit, cheese and crackers, hamburgers and pork chops (no other meat), scrambled eggs, nuts, PB, baked beans, iceburg lettuce. Labs: Hgb 8.3 (L), K+ 2.8 (L), Total Protein 5.3 (L), Albumin 1.9 (L) Nutrition Diagnosis: Inadequate protein calorie energy intake r/t progression of liver disease aeb wt loss of 60# over 2y, reduced appetite, low total Pro and albumin labs, chronic anemia. Interventions: Small, frequent meals c PRO foods on each tray. Will offer ONS supp in smoothie if pt unable to meet PRO needs (85kg [1g/kg]) PO. Monitoring/Evaluations: will evaluate dry wt once edema and ascites are treated to calculate approx BMI, diet tolerance and advancement, PO protein intake, associated labs. Will assess for potential PCM with dry weight.
[2019-02-05] MEDS: SPIRONOLACTONE 50 MG TABLET PO (13:43)
[2019-02-05] MEDS: ALBUMIN HUMAN 25 GM/100 ML VIAL IV (13:44)
--- NOTE | 2019-02-05 13:45 | PT.IPTN ---
Current Diagnoses Hypokalemia (02/04/19) Physical Therapy Treatment Note Notes Pt getting fluids for low BP and about to get blood for low H/H, will hold PT eval today to allow further medical intervention to allow for more accurate mobility assessment tomorrow.
--- NOTE | 2019-02-05 15:49 | CM.DANOTE ---
DCP/Assessment: Reviewed chart. Patient is a 53yr old male admitted [facility] with lower extremity swelling and distended belly. PCP is Dr. Stewart. Primary payor is 1)Gabe Lott. Attempted to meet with patient today. Patient off floor for procedure. Per notes, patient is daily alcohol drinker. Patient was on his way to long-term when he was asked to come to [facility] to obtain medical clearance. Patient possibly with cirrhosis. Per notes, patient presents with jaundice, thin, and slightly confused. SHELL PRESS OPERATOR will reattempt visit on 02-06-19. P: Pending needs. Patient currently is not detained by law enforcement. TYLER Guy Discharge Planning/Care Management CM Discharge Assessment Start: 02/05/19 15:39 Freq: Status: Active Protocol: Document 02/05/19 15:41 KJS (Rec: 02/05/19 15:49 KJS [id number]) Discharge Planning Assessment Assigned High Speed Operator TYLER Guy Contact Information Sania Webber (spouse) Advance Directives? No History Provided By Patient Prior Living Arrangements House Household Members spouse children Type of transporation used prior to Drives own vehicle admit Independent with ADL's Yes Is patient alert and oriented? Yes Transportation Arrangement Family to provide transport Review Status In Process Next Review Type Continued Stay Review
--- NOTE | 2019-02-05 20:42 | PM.EVENT ---
Date Patient Seen: 02/05/19 Time Patient Seen: 20:42 I was called to the patient's bedside by the patient's nurse after the patient sustained a fall. [facility] with a 2 person assist. Who was on the commode and was reaching forward to reach the wipes that were in front of him at which time he fell forward landing on the floor from a seated position. The nurse was immediately outside the room and noted the patient had no loss of consciousness or change in mental status. On evaluation the patient states he may have hit his head however there is no evidence of redness, contusion or bruising. The patient is conversant and denies headache or dizziness. When asked if he has any pain he identifies his pre-existing bruises on his low back posteriorly. He denies neck or spine pain and has no extremity pain. He is appropriately interactive at his baseline. There are no injuries identified and there is no indication for imaging. Emphasized the need for assistance any time he gets up.
[2019-02-05] MEDS: SENNOSIDES 8.6 MG TABLET 17.2 MG PO (21:08)
--- NOTE | 2019-02-05 22:13 | PC.NURSE ---
2015- Pt was on BSC, asked to be left alone so he could shit, in a aggressive loud tone. Pt did not use call light as he said he would, got and fell to ground on buttock, back, and reported he he hardly hit his head. Could not remember he told this specification writer he would use call light, and reported he does not remember this specification writer informing him he is not to ever get up without staff present, FWW, and gait belt. This specification writer, Radha ROBERTS, and Rachid HERNANDEZ got pt up with gait belt and FWW, back to bed. This specification writer did not find any objective injuries, bruises, abrasions, or scratches on body including head. Reported to Daivd REILLY, which he promptly assessed pt. and found pt not to be in need of any new interventions from this fall. Earlier CIWA score-5 for mod tremors, seizure pads in place, bed alarm on.
[2019-02-06] VITALS (9 sets, daily range): BP systolic 85–117; BP diastolic 45–72; PULSE 76–89; RESP 12–18; TEMP 36.6–36.9; O2SAT 95–99
--- NOTE | 2019-02-06 02:16 | PC.NURSE ---
Addendum entered by Ana María Anderson R.N. 02/06/19 07:03: BP remains 85/60 following IVF bolus and patient still asymptomatic. Dr Sarkar informed, no new orders. Addendum entered by Ana María Anderson R.N. 02/06/19 05:47: Patient slept most of shift. Is alert and oriented except for day of month and town. Bandaid to paracentesis site is CDI. BP low at 85/60 and has only had 125cc UOP this shift. Notified MELBA Jaems and order received for IVF bolus. Patient complains of 5/10 generalized pain; medicated with Oxycodone. Reports he saw a ghost walking across room during night but is not having hallucinations at this time. CIWA is 1. Original Note: Patient awake at start of shift and very pleasant and cooperative. Denied any pain or nausea. Currently is asleep during assessment. BS are diminished but CTA with RA sat of 96%. HRR. BP improved from earlier readings now at 114/65. On telemetry with 0000 reading of SR. BT hypoactive; abdomen still appears distended with ascites. Noted UOP only 550cc in past 24h. 1+ bilateral LE edema present; wearing bilateral KRYSTLE stockings. Seizure pads on bed. CIWA was 0. Fall risk score is high (patient fell on previous shift); bed alarm is activated.
[2019-02-06] MEDS: OXYCODONE IR 5 MG TABLET PO ×2 (05:22→20:25)
[2019-02-06] MEDS: PANTOPRAZOLE 20 MG TABLET PO (05:23)
[2019-02-06 05:35] LABS: Add Manual Diff / Slide Review NO; Basophils Absolute Auto 0 /uL (0-100); Eosinophils Absolute Auto 0 /uL (0-450); Hemoglobin 9.6 g/dL (13.5-17.5); Lymphocytes Absolute Auto 900 /uL (1100-4500); Mean Corpuscular HGB Conc 34.4 % (30-36); Mean Corpuscular Hemoglobin 35.7 PG (26-34); Mean Corpuscular Volume 103.8 fL (80-100); Monocytes Absolute Auto 300 /uL (0-900); Monocytes Percent Auto 8.9 % (3-14); Neutrophils Absolute Auto 2500 /uL (1500-7000); Neutrophils Percent Auto 65.1 % (50-75); Platelet Count 149 X10^3/uL (150-400); Red Cell Distribution Width 18.5 % (11.6-14.8); White Blood Cell Count 3.9 X10^3/uL (4.5-11.0)
[2019-02-06 05:40] LABS: Alanine Aminotransferase 16 IU/L (21-72); Albumin 2.2 g/dL (3.5-5.0); Albumin Globulin Ratio 0.6 (1.0-2.8); Alkaline Phosphatase 116 U/L (38-126); Aspartate Aminotransferase 52 IU/L (17-59); BUN Creatinine Ratio 4.5 (6-22); Bilirubin Total 0.5 mg/dL (0.2-1.3); Blood Urea Nitrogen 5 mg/dL (9-20); Calcium 7.4 mg/dL (8.4-10.2); Carbon Dioxide 29 mmol/L (22-32); Chloride 97 mmol/L (98-107); Estimated Glomerular Filt Rate > 60.0 mL/min (>60); Globulin 3.4 g/dL (1.7-4.1); Glucose 107 mg/dL (70-100); HEMOLYSIS < 15 (0-50); Potassium 3.1 mmol/L (3.4-5.1); Sodium 131 mmol/L (137-145); Total Protein 5.6 g/dL (6.3-8.2)
[2019-02-06] MEDS: SODIUM CHLORIDE 0.9% 500 ML IV (05:45)
[2019-02-06] MEDS: SODIUM CHLORIDE 0.9% FLUSH 10 ML IV ×3 (05:45→20:23)
--- NOTE | 2019-02-06 08:11 | PC.NURSE ---
Addendum entered by Nichelle Mullins R.N. 02/06/19 13:57: Plan (per Dr Sarkar) is to d/c home tomorrow. Patient wanted to talk to his revenue enforcement collection agent to clarify what he should do next with regard to his long-term time. 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 This comic book writer spoke with his dental office assistant Alberta because Kaushik is not currently in the office. Alberta is going to have Kaushik call when he gets back in the office (between [phone]) and ask for patient's nurse so we can provide an update. We will also let patient speak to his revenue enforcement collection agent. This comic book writer left the phone # for TYLER Berger should the revenue enforcement collection agent want to speak her for any reason. Original Note: Shift summary: Awake and alert. Oriented to everything except day of week and exact date. Forgetful. No s/sx alcohol withdrawal, CIWA score 0. Seizure precautions in place. BT+, hypoactive. Flatus+. Abdomen firm, round, ascites present. Reports chronic pain in BLE's from feet all the way up to my knees, also reports chronic back pain. Tele monitoring ongoing. Lungs CTA, HRR. KRYSTLE hose BLE's. Able to make needs known. Sitting up now eating breakfast. Call light in reach, bed alarm on.
[2019-02-06] MEDS: POTASSIUM CHLORIDE 20 MEQ TAB 40 MEQ PO ×3 (08:24→16:25)
[2019-02-06] MEDS: DOCUSATE 100 MG CAPSULE PO ×2 (08:25→20:22)
[2019-02-06] MEDS: THIAMINE 100 MG TABLET PO (08:25)
[2019-02-06] MEDS: FOLIC ACID 1 MG TABLET PO (08:25)
[2019-02-06] MEDS: MULTIVITAMIN 1 TABLET 1 TAB PO (08:25)
[2019-02-06] MEDS: SPIRONOLACTONE 50 MG TABLET PO (08:32)
--- NOTE | 2019-02-06 11:34 | PT.IIE ---
Current Diagnoses Hypokalemia (02/04/19) Surgical History (Last Reviewed 02/04/19 @ 18:06 by Sheila Sarkar MD) Anesthesia (Resolved) Hx of surgical procedure (Resolved ~2004) Medical History (Last Reviewed 02/04/19 @ 18:06 by Sheila Sarkar MD) Ankle pain (Chronic 2018) Anxiety (Chronic) Cervical spine disease (Chronic 2004) Chronic back pain (Chronic) GERD (gastroesophageal reflux disease) (Chronic 2004) Hearing loss (Chronic) Lumbar spine pain (Chronic) Recurrent sinusitis (Chronic) Rheumatoid arthritis (Chronic) Seizures (Chronic) Sleep apnea (Chronic 2004) PTSD (post-traumatic stress disorder) (Suspected) Abnormal chest x-ray (Resolved 2015) Foot pain (Resolved) Fractures (Resolved) Hemorrhoids (Resolved 1987) History of head injury (Resolved) History of spleen injury (Resolved) Physical Therapy Inpatient Evaluation/Re-Eval M1 PT/OT-IP Prior Functional Status Start: 02/05/19 08:22 Freq: NEEDED Status: Active Protocol: Document 02/06/19 11:01 IJS (Rec: 02/06/19 11:34 IJS [email or web address]) Medical Review Prior Functional Status Medical History Reviewed Yes Communication Poor historian, poor memory Mobility and Gait Reports using a walker and furniture/kirk in the home. Prior Functional Level (Other details) Frequent falls Social History Household Members spouse family children Living Arrangements House Number of Stairs To Enter/Railing? 4 steps with railing but it is not secure. 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 M2 PT-IP Current Condition Start: 02/05/19 08:22 Freq: NEEDED Status: Active Protocol: Document 02/06/19 11:01 IJS (Rec: 02/06/19 11:34 IJS [email or web address]) Physical Therapy Current Condition Current Condition Evaluation Date 02/06/19 Treatment Diagnosis Chronic pain, ETOH Onset Date 02/04/19 Precautions Lumbar Precautions Log Roll Other Precautions Chronic pain back, feet ( afraid of having his feet touched/stepped on), rib pain with mobility Weight Bearing Status Weight Bearing Status Full Weight Bearing M3 PT-IP Subjective Start: 02/05/19 08:22 Freq: NEEDED Status: Active Protocol: Document 02/06/19 11:01 IJS (Rec: 02/06/19 11:34 IJS [email or web address]) Subjective Physical Therapy Visit Type Type Initial Evaluation Visit Start Time 10:00 Visit Stop Time 10:35 Total Visit Minutes 35 Number of ELECTRICAL AND INSTRUMENTATION MECHANIC Visits 0 Physical Therapy Visit Comments Patient Comments I have no balance, that is why I got a DUI. What is next, am I going to stay here another day. Agrees to work with PT. Reports when he got to the retirement he had to crawl on his hands and knees to go up the steps. Patient Goals Home when medically and physically stable. Therapy Pain Assessment Pain When Pain Assessed During Mobility Location Generalized Intensity 10 Description Acute Chronic Sharp With Movement Pain Behaviors Calling Out Pain Management Techniques Re-positioning M4 PT-IP Mobility and Gait Start: 02/05/19 08:22 Freq: NEEDED Status: Active Protocol: Document 02/06/19 11:01 IJS (Rec: 02/06/19 11:34 IJS [email or web address]) PT-Bed Mobility Assessment Rolling Type of Rolling Log Rolling Level of Assist Standby Assistance 1 Person Assistance Supine to Sit Supine to Sit Standby Assistance 1 Person Assistance Sit to Supine Sit to Supine Standby Assistance 1 Person Assistance Head of Bed Elevated Bedrails PT-Transfer Assessment Sit to and From Stand Sit to and from Stand Contact Guard Assistance Use of Upper Extremities Equipment Transfer Assistive Device Gait Belt Front Wheeled Walker Orthotic/Prosthetic Devices or Brace: No Transfers Transfer Destination Bed Chair Transfer Technique Stand Step Pivot Transfer Ability Level of Assist Contact Guard Assistance Moderate Assistance Maximum Assistance Comments Mobility Comments Heavy use of bed rails for bed mobility. Once in chair needed Mod/max A sit to stand without walker. Use of walker to stand from bed. Impulsive Gait Assessment Gait Gait Assistance Required: Contact Guard Assist Distance (Feet) 75 Able to Maintain Weight Bearing Status Yes During Gait Assistive Devices Assistive Device Gait Belt Front Wheeled Walker Orthotic/Prosthetic Devices or Brace: No Gait Deviations General Gait Pattern Decreased Stride Length Factors Limiting Gait Function Factors Limiting Gait Function Difficulty Following Directions Pain Poor Balance Poor Safety Awareness Comments Gait Comments Gait was inconsistant with unequal stride lengths. When got back to room he tried to put the walker aside to go to the chair but nearly lost his balance and grabed the walker then plopped in the chair. Stair Climbing Assessment Comments Stair Climbing Comments Did not attempt stair training as he had already reported that he had to go up on his hands and knees prior to admit . He was not safe to trial stairs without a rail. PT-Balance Assessment Sitting Balance and Reactions Static Sitting Balance Ability Normal Dynamic Sitting Balance Ability Good Standing Balance and Reactions Static Standing Balance Ability Fair Dynamic Standing Balance Ability Poor Device Used Needs FWW Functional Assessments Functional Tests Tinetti Balance and Gait Assessment Balance score 3/16, Gait 6/12 - high fall risk M5 PT-IP Objective Assessments Start: 02/05/19 08:22 Freq: NEEDED Status: Active Protocol: Document 02/06/19 11:01 IJS (Rec: 02/06/19 11:34 IJS [email or web address]) Orientation Orientation/Cognition Orientation Name Month Day of Week Place Safety Awareness Decreased Safety Awareness Memory Description Short Term Impaired Manager Tax Impaired Comments He had a fall in his room last night but cannot remember what exactly happened. He states he walked a lot yesterday but did not know if he went out in the hendrix. Gross Range of Motion Upper Extremity ROM Assessment Within Functional Limits Lower Extremity ROM Assessment Within Functional Limits Strength Upper Extremity Strength Shoulder 4/5 flexion Lower Extremity Strength Hip 3+/5 Knee 4+/5 Comments Strength Comments Some difficulty following commands for MMT and c/o pain with UE/LE testing Coordination Assessment Gross Coordination Gross Coordination Impaired Sensation Assessment Sensation Gross Sensation WNL Muscle Tone Muscle Tone WNL Yes M6 PT-IP Treatment Start: 02/05/19 08:22 Freq: NEEDED Status: Active Protocol: Document 02/06/19 11:01 IJS (Rec: 02/06/19 11:34 IJS [email or web address]) Physical Therapy Treatment Exercises Exercises Ankle Pumps Heel Slides Seated Knee Flexion/Extension Elbow Flexion/Extension Education Education Provided Safety M7 PT-IP Assessment and Plan Start: 02/05/19 08:22 Freq: NEEDED Status: Active Protocol: Document 02/06/19 11:01 IJS (Rec: 02/06/19 11:34 IJS [email or web address]) PT Summary Assessment and Plan Potential Rehabilitation Potential Fair Status of Condition at Evaluation Evolving Summary Impairments Pain Strength Balance Coordination Cognition Bed Mobility Transfers Gait Activity Tolerance Assessment Summary Post admit day #2, unsteady on feet especially without use of a walker. Poor safety awareness and impulsive. SOB with initial mobility and 02 sat 96% with HR 84 bpm. After gait/mobility BP sitting on right arm 103/72, HR 90 bpm. He has a tendency to become irritable and then quickly regain his composure. Very challenged for sit to stand from low surfaces. Moderate complexity secondary to comorbidities and pain. Goals Bed Mobility Goal Independent Transfer Goal Standby Assistance Gait Distance 150 Other Goals If going home will need caregiver training for stairs X4 without rail. Days to Meet Goals 3 Frequency of Treatment Frequency Of Treatment Once a Day Treatment Plan Physical Therapy Treatment Plan Bed Mobility Training Transfer Training Gait Training Therapeutic Exercise Balance Retraining Discharge Planning Recommendations To Nursing Amount of Assist Needed 1 Person Assist Discharge Recommendations PT Discharge Recommendations SNF Rehab Equipment Needed for Home Before He says he has a walker at Discharge home and a cane.
--- NOTE | 2019-02-06 13:41 | PM.PN.1 ---
Subjective Date Patient Seen: 02/06/19 Interval history: The patient is a 53-year-old male who was admitted to the hospital with severe hypokalemia, anemia and ascites. He reports he feels somewhat better today. He does report chronic shortness of breath but this is unchanged. He has had no hematemesis or melena in the hospital he has had 1 stool which is guaiac negative. Patient tolerated at 1 unit of transfusion. He had 4 L of fluid removed from his belly yesterday. Exam Vital Signs (past 8 hours): - 02/06/19 07:00 02/06/19 08:03 02/06/19 08:30 Temperature 98.3 F Pulse Rate 88 Respiratory Rate 14 Blood Pressure 85/60 L 117/45 L Pulse Oximetry 95 95 02/06/19 11:56 Temperature 98.5 F Pulse Rate 81 Respiratory Rate 16 Blood Pressure 88/66 L Pulse Oximetry 98 Oxygen Delivery Method Room Air Oxygen Flow Rate 0 Narrative Exam Narrative: Pleasant gentleman resting comfortably in no obvious distress Lungs: Clear to auscultation but decreased breath Cardiac exam: Regular rate and rhythm normal S1-S2 Abdomen: Decreased distended soft mild fluid no appreciable hepatosplenomegaly Lower extremities 1+ edema bilateral Objective Labs Result Diagrams: 02/06/19 05:15 02/06/19 05:15 Labs: Laboratory Results - last 24 hr 02/05/19 02/06/19 02/06/19 12:35 05:15 05:15 WBC 3.9 L RBC 2.70 L Hgb 9.6 L Hct 28.0 L MCV 103.8 H MCH 35.7 H MCHC 34.4 RDW 18.5 H Plt Count 149 L Neut % (Auto) 65.1 Lymph % (Auto) 24.0 L [place] % (Auto) 8.9 Eos % (Auto) 1.0 L Baso % (Auto) 1.0 Neut # (Auto) 2500 Lymph # (Auto) 900 L [place] # (Auto) 300 Eos # (Auto) 0 Baso # (Auto) 0 Sodium 131 L Potassium 3.1 L Chloride 97 L Carbon Dioxide 29 BUN 5 L Creatinine 1.10 Estimated GFR > 60.0 BUN/Creatinine Ratio 4.5 L Glucose 107 H Calcium 7.4 L Total Bilirubin 0.5 AST 52 ALT 16 L Alkaline Phosphatase 116 Total Protein 5.6 L Albumin 2.2 L Globulin 3.4 Albumin/Globulin Ratio 0.6 L Blood Type A Positive Antibody Screen Negative Crossmatch See Detail Assessment & Plan Assessment & Plan narrative: 1. Severe hypokalemia, present on admission will continue replace 2. Abdominal ascites secondary to chronic liver disease. The patient is status post 4 L removed. He is now on spironolactone. 3. Anemia, chronic, etiology unclear, no evidence of bleeding., patient tolerated 1 unit without difficult 4. Hyponatremia, chronic 5. Generalized weakness, continue PT OT. Patient will be discharged home with home health. 6. Hypotension, chronic, Lasix has been held, will continue spironolactone blood pressure around 90 is likely baseline. The patient will be discharged home tomorrow after ongoing physical therapy. He will follow up with his managing attorney as an outpatient regarding further long-term time.
--- NOTE | 2019-02-06 13:44 | P.PN_ITS ---
Subjective Date Patient Seen: 02/06/19 Interval history: The patient is a 53-year-old male who was admitted to the hospital with severe hypokalemia, anemia and ascites. He reports he feels somewhat better today. He does report chronic shortness of breath but this is unchanged. He has had no hematemesis or melena in the hospital he has had 1 stool which is guaiac negative. Patient tolerated at 1 unit of transfusion. He had 4 L of fluid removed from his belly yesterday. Exam Vital Signs (past 8 hours): - 02/06/19 07:00 02/06/19 08:03 02/06/19 08:30 Temperature 98.3 F Pulse Rate 88 Respiratory Rate 14 Blood Pressure 85/60 L 117/45 L Pulse Oximetry 95 95 02/06/19 11:56 Temperature 98.5 F Pulse Rate 81 Respiratory Rate 16 Blood Pressure 88/66 L Pulse Oximetry 98 Oxygen Delivery Method Room Air Oxygen Flow Rate 0 Narrative Exam Narrative: Pleasant gentleman resting comfortably in no obvious distress Lungs: Clear to auscultation but decreased breath Cardiac exam: Regular rate and rhythm normal S1-S2 Abdomen: Decreased distended soft mild fluid no appreciable hepatosplenomegaly Lower extremities 1+ edema bilateral Objective Labs Result Diagrams: 02/06/19 05:15 02/06/19 05:15 Labs: Laboratory Results - last 24 hr 02/05/19 02/06/19 02/06/19 12:35 05:15 05:15 WBC 3.9 L RBC 2.70 L Hgb 9.6 L Hct 28.0 L MCV 103.8 H MCH 35.7 H MCHC 34.4 RDW 18.5 H Plt Count 149 L Neut % (Auto) 65.1 Lymph % (Auto) 24.0 L [place] % (Auto) 8.9 Eos % (Auto) 1.0 L Baso % (Auto) 1.0 Neut # (Auto) 2500 Lymph # (Auto) 900 L [place] # (Auto) 300 Eos # (Auto) 0 Baso # (Auto) 0 Sodium 131 L Potassium 3.1 L Chloride 97 L Carbon Dioxide 29 BUN 5 L Creatinine 1.10 Estimated GFR > 60.0 BUN/Creatinine Ratio 4.5 L Glucose 107 H Calcium 7.4 L Total Bilirubin 0.5 AST 52 ALT 16 L Alkaline Phosphatase 116 Total Protein 5.6 L Albumin 2.2 L Globulin 3.4 Albumin/Globulin Ratio 0.6 L Blood Type A Positive Antibody Screen Negative Crossmatch See Detail Assessment & Plan Assessment & Plan narrative: 1. Severe hypokalemia, present on admission will continue replace 2. Abdominal ascites secondary to chronic liver disease. The patient is status post 4 L removed. He is now on spironolactone. 3. Anemia, chronic, etiology unclear, no evidence of bleeding., patient tolerated 1 unit without difficult 4. Hyponatremia, chronic 5. Generalized weakness, continue PT OT. Patient will be discharged home with home health. 6. Hypotension, chronic, Lasix has been held, will continue spironolactone blood pressure around 90 is likely baseline. The patient will be discharged home tomorrow after ongoing physical therapy. He will follow up with his staff attorney as an outpatient regarding further nursing home time.
--- NOTE | 2019-02-06 13:47 | OT.IP.EVAL ---
Current Diagnoses Hypokalemia (02/04/19) Past Medical History (Last Reviewed 02/04/19 @ 18:06 by Sheila Sarkar MD) Ankle pain (Chronic 2018) Anxiety (Chronic) Cervical spine disease (Chronic 2004) Chronic back pain (Chronic) GERD (gastroesophageal reflux disease) (Chronic 2005) Hearing loss (Chronic) Lumbar spine pain (Chronic) Recurrent sinusitis (Chronic) Rheumatoid arthritis (Chronic) Seizures (Chronic) Sleep apnea (Chronic 2004) PTSD (post-traumatic stress disorder) (Suspected) Abnormal chest x-ray (Resolved 2015) Foot pain (Resolved) Fractures (Resolved) Hemorrhoids (Resolved 1987) History of head injury (Resolved) History of spleen injury (Resolved) Surgical History (Last Reviewed 02/04/19 @ 18:06 by Sheila Sarkar MD) Anesthesia (Resolved) Hx of surgical procedure (Resolved ~2004) Occupational Therapy Inpatient Evaluation/Re-Eval M1 PT/OT-IP Prior Functional Status Start: 02/05/19 08:22 Freq: NEEDED Status: Active Protocol: Document 02/06/19 13:47 NINA (Rec: 02/06/19 18:42 EDA [id number]) Medical Review Prior Functional Status Medical History Reviewed Yes Diet/Fluid Consistency Regular Thin Liquids Communication Pt is poor historian, contradicts self at times, reluctant to give details of home situation. Mobility and Gait Pt reports using a walker outside and furniture walks in the home. Activities of Daily Living and IADL's Pt states he was independent with self care and driving prior to admit. He states he assists his mother in law, who has dementia, with lower body dressing and getting out of bed. His works time analysis clerk and assists with all cooking, IADLS. Pt states he also has roommate who can assist with mother in law at home. Prior Functional Level (Other details) Pt states he has been unemployed since 2015. He states he had recent DUI and is supposed to serve 45 days of [facility] time. Social History Household Members spouse family children Living Arrangements House Number of Stairs To Enter/Railing? 4 steps with railing but it is not secure. Home Environment High Toilet Walk in Shower Home Equipment Front Wheel Walker Straight Cane Shower Seat without Backrest Hand Held Shower Grab Bars Near Toilet Grab Bars In Shower Employment Status Unemployed M2 OT-IP Current Condition Start: 02/05/19 15:01 Freq: Status: Active Protocol: Document 02/06/19 13:47 PJM (Rec: 02/06/19 18:42 PJM [id number]) Occupational Therapy Current Condition Current Condition Evaluation Date 02/06/19 Treatment Diagnosis decr'd mobility/balance, confusion with DX: liver failure, heavy ETOH use Diagnosis Onset Date 02/04/19 Post Operative Precautions Other Precautions high fall risk M3 OT- IP Subjective and Pain Start: 02/05/19 15:01 Freq: Status: Active Protocol: Document 02/06/19 13:47 PJM (Rec: 02/06/19 18:42 PJM [id number]) OT- Subjective Occupational Therapy Visit Type Type Initial Evaluation Visit Start Time 13:01 Visit Stop Time 13:47 Occupational Therapy Visit Comments Patient/Caregiver Goals I don't think I can go to [facility] right now. OT Pain Assessment Pain When Pain Assessed At Rest Pain Present Pain Present Pain Reported Location Generalized Intensity 9 Scale Used mostly in BLE's Description Aching Chronic M4 OT- IP ADL's Start: 02/05/19 15:01 Freq: Status: Active Protocol: Document 02/06/19 13:47 PJM (Rec: 02/06/19 18:42 PJM [id number]) OT [id number] General Evaluation Self-Feeding Ability Independent OT ADL-Grooming General Evaluation Grooming Ability Independent Areas Needing Assistance Face Washing Comments OT Grooming Comments seated in chair OT ADL-Oral Care Comments Oral Care Comments did not occur OT ADL-Dressing General Eval Lower Body Dressing Ability Standby Assistance Areas Needing Assistance Underpants/Brief Comments OT Dressing Comments Pt changed undershorts with poor safety awareness as he removed them in standing without FWW. He does not follow recommendations from therapist to sit for this task to improve safety. He did agree to sit to don undershorts. Pt able to remove B socks with SBA seated. He states will assist with donning socks and TEDS at home . OT ADL-Toileting Comments OT Toileting Comments did not occur this session OT ADL-Bathing Comments OT Bathing Comments did not occur this session M5 OT- IP IADL's Start: 02/05/19 15:01 Freq: Status: Active Protocol: Document 02/06/19 13:47 PJM (Rec: 02/06/19 18:42 PJM [id number]) OT-Instrumental Activities of Daily Living Deficits IADL Deficits Identified Deficits Home Safety Awareness Home Safety Comments Pt states does all IADLS at home Medication Management Medication Management Comments pt did not state Money Management Money Management Comments pt did not state Meal Preparation Meal Preparation Caregiver Provides Assist Clinical Advisor Clinical Advisor Caregiver Provides Assist Driving Driving Comments pt reports driving but with recent DUI M6 OT- IP Functional Cognition Start: 02/05/19 15:01 Freq: Status: Active Protocol: Document 02/06/19 13:47 PJM (Rec: 02/06/19 18:42 [facility] [id number]) Cognitive Factors Limiting Selfcare Function Cognitive Ability Level of Alertness Alert Attention Span Ability Capable of Focused Attention Ability to Follow Commands Able to Follow One Step Commands Cognitive Comments Cognitive Assessment Comments Difficult to assess due to pt's low frustration tolerance with questions. He did recall his stone decorator's name and phone number when asked by INTERNET MARKETING INTERN, and recalls recent events. OT- Vision and Hearing OT- Hearing Assessment OT- Hearing Assessment WFL OT- Vision Assessment Visual Acuity WFL Glasses For Reading M7 OT- IP Mobility and Balance Start: 02/05/19 15:01 Freq: Status: Active Protocol: Document 02/06/19 13:47 PJM (Rec: 02/06/19 18:42 [facility] [id number]) OT- Bed Mobility Assessment Rolling Type of Rolling Roll to Left Level of Assistance Independent Supine to Sit Supine to Sit Assist Independent Sit to Supine Sit to Supine Assist Independent Scooting Scooting to Edge of Bed Independent OT-Transfer Assessment Sit to and From Stand Sit to and from Stand Contact Guard Assistance Transfers Transfer Ability Contact Guard Assistance Technique Transfer Destination Chair Transfer Technique Stand Step Pivot Devices Transfer Assistive Devices Gait Belt Front Wheeled Walker Comments Mobility Comments pt dislikes CGA from therapist and refuses it at times OT- Gait Assessment Comments Gait Ability Comments see P.T. notes OT- Balance Assessment Sitting Balance and Reactions Static Sitting Balance Ability Good Dynamic Sitting Balance Ability Good Standing Balance and Reactions Static Standing Balance Ability Fair Dynamic Standing Balance Ability Poor Comments Other Balance Tests/Deviations/Treatment pt declines to use FWW at times : M8 OT- IP Objective Assessments Start: 02/05/19 15:01 Freq: Status: Active Protocol: Document 02/06/19 13:47 PJM (Rec: 02/06/19 18:42 PJM [id number]) OT Gross Range of Motion Upper Extremity Range of Motion Assessment Within Functional Limits OT Strength Upper Extremity Strength Assessment Within Functional Limits Hand Configuration Management Manager Strength Hand Dominance Right OT- Coordination Assessment Comments Coordination Comments BUE WFL OT-Muscle Tone Assessment Muscle Tone WNL Yes OT Sensation Assessment Comments Summary Comments pt denies deficits in BUE's M9 OT- IP Assessment and Plan Start: 02/05/19 15:01 Freq: Status: Active Protocol: Document 02/06/19 13:47 PJM (Rec: 02/06/19 18:42 PJM [id number]) OT Summary Assessment and Plan Potential Analytic Complexity at Evaluation Low Summary Assessment Summary Low complexity OT assessment completed as limited by pt's reluctance to participate. He is poor historian with low frustration tolerance for questions. Pt is unsteady on his feet with transfers with FWW and during lower body dressing, but is reluctant to use FWW, does not want CGA and does not modify behavior to improve safety during lower body dressing as described above. Pt may be close to his baseline level of function. Per [employer] MARKETING INTERN, d/c plan is home tomorrow with HH services. Will attempt one more OT visit to increase pt's safety with basic self care and bathroom transfers if pt willing. Goals Grooming Goal Standby Assistance Dressing Goal Standby Assistance Toileting Goal Standby Assistance Toilet Transfer Goal Standby Assistance Days to Meet Goals 1 Frequency of Treatment Frequency Of Treatment Once a Day Treatment Plan OT Treatment Plan ADL Training Functional Mobility Other Treatment Recommendations and Next try up to sink and toilet with Treatment Focus emphasis on safety with consistent FWW use; could be low priority as participation inconsistent with low frustration tolerance, likely d/c home w/HH 02/07 Discharge Recommendations OT Discharge Recommendations Home with Assistance Home Health
--- NOTE | 2019-02-06 16:09 | CM.DANOTE ---
DCP/Assessment: Reviewed chart. RECREATION DIRECTOR met with patient explained CM/SW role. Patient sitting in recliner at time of visit, alert and oriented. Patient seen by therapy today and current recommendation is assistance with ambulation. Therapy reports patient unsteadyon his feet. Patient reports that he resides with family in [place] Patient reports that initially he was going to [facility] to serve his 45dy sentence. However, he was sent to [place] due to looking ill for medical clearance. Patient plans on checking into [facility] once it is determined he is medically stable and can mobilize without assistance. Patient reports that he has walker, cane, and BSC at home. Patient agreeable to HH upon d/c. RECREATION DIRECTOR asked ZAHIRA/Dara to call Gabe Lott to check on HH benefit. In the meantime, patient attempting to call his ip attorney/Kaushik June to determine what he should do once released from [facility]. RN updated. P: Pending. TYLER Guy
[2019-02-06] MEDS: SENNOSIDES 8.6 MG TABLET 17.2 MG PO (20:22)
--- NOTE | 2019-02-06 23:53 | PC.NURSE ---
Shift summary- Flour Mixer Helper did not call. and daughter spoke with skilled nursing facilities professional as to pt not coming home with home health, but to go to SNF. Family reports can not take care of pt. Pt has refused to use FWW thoughout shift. Pt has not been left alone when walking to BR, or while in BR, urinating aprox 15-50mL at a time. BT+ distention denies nausea, but c/o pain 5/10 to torso/abd, medicated with percolone 5mg, effective. Pt alert and confused at times, couldn't get dates/months right. CIWA score-1. Seizure pads in place, tele with NSR x2, bed alarm on.
--- NOTE | 2019-02-07 00:34 | PC.NURSE ---
Addendum entered by Arely Lentz R.N. 02/07/19 06:34: Reassessment sandy, 1. Pt states no further hallucinations. Get oob frequently without using call system. This chief underwriter and healthcare liaison Candi have educated pt on how to use call system. Pt has not been cooperative with safety interventions. Bed alarm remains on. Door open for close monitoring. Original Note: Assumed care of pt at 2330 on 02/06/19. Pt resting in bed during bedside hand-off. Denies pain or nausea when asked. Sandy 9, pt states I see shadows of people in my room Pt is also agitated to declines to follow safety interventions. Large red tender blanchable intact area above gluteal cleft. Pt states he can reposition himself and declines staff offer to help with turning. This chief underwriter educated pt on pressure injury prevention and enc pt to roll from side to side. Pt verbalized understanding. Bed alarm on. Seizure pads remain on. Wearing yellow gown for high fall risk.
[2019-02-07 03:16] VITALS: BP 90/62; PULSE 89; RESP 18; TEMP 36.8; O2SAT 93
[2019-02-07] MEDS: PANTOPRAZOLE 20 MG TABLET PO (05:34)
[2019-02-07] MEDS: OXYCODONE IR 5 MG TABLET PO (06:20)
[2019-02-07 06:24] LABS: Blood Urea Nitrogen 3 mg/dL (9-20); Calcium 7.4 mg/dL (8.4-10.2); Carbon Dioxide 26 mmol/L (22-32); Chloride 100 mmol/L (98-107); Estimated Glomerular Filt Rate > 60.0 mL/min (>60); Glucose 121 mg/dL (70-100); HEMOLYSIS < 15 (0-50); Potassium 3.9 mmol/L (3.4-5.1); Sodium 131 mmol/L (137-145)
[2019-02-07 07:45] VITALS: BP 85/59; PULSE 99; RESP 18; TEMP 36.6; O2SAT 94
[2019-02-07 07:50] VITALS: O2SAT 97
[2019-02-07] MEDS: THIAMINE 100 MG TABLET PO (09:24)
[2019-02-07] MEDS: SPIRONOLACTONE 50 MG TABLET PO (09:24)
[2019-02-07] MEDS: FOLIC ACID 1 MG TABLET PO (09:25)
[2019-02-07] MEDS: MULTIVITAMIN 1 TABLET 1 TAB PO (09:25)
[2019-02-07] MEDS: SODIUM CHLORIDE 0.9% FLUSH 10 ML IV (09:26)
--- NOTE | 2019-02-07 10:42 | PM.DS.1 ---
History of Present Illness Chief complaint: Chronic pain,swollen legs,fatigue Narrative: The patient is a 53-year-old male with a history of liver disease secondary to alcohol, chronic alcohol abuse, GERD who presented to report to long-term as he was instructed to do. The patient was evaluated by a nurse at the long-term who referred him directly to the emergency department. The patient is a somewhat difficult historian. He reports 60 lb weight loss over the past several years. He reports shortness of breath which is worse with exertion. He denies any orthopnea. He has lower extremity edema which has been present for some time. In addition he reports increasing abdominal girth. He reports some tenderness with the swelling of his abdomen as well. He has not had any hematemesis, or bright red blood per rectum. He does report black stool which occurred the past day or so. In addition he reports constipation. The patient has had no fever or chills. He denies any chest pain. He has no headache does report blurred vision. He has had multiple fall and was evaluated in the emergency room with x-rays which were negative the patient reports drinking daily. He is unable to quantify how much alcohol he drinks he does report no prior history of alcohol withdrawal. He has not been hospitalized ever. Patient was seen and evaluated in the emergency department. Was found to have a potassium of 2.4. In addition he was found to have significant ascites S and progressive renal failure. He is admitted to the hospital for further evaluation. Patient reports he ran out of his medications 2 days ago and has not taken them since that time. Discharge Providers Date of admission: 02/04/19 15:34 Discharge Date: 02/07/19 Primary care physician: Lucia Stewart DO Consults: 02/04/19 17:24 Consult to Dietitian, Adult Routine Comment: Reason For Exam: 60+lbs weight loss Consult to Respiratory Therapy Evaluate & Treat Comment: Physician Instructions: Evaluate and treat Consult to Plugger Routine Comment: assess needs at d/c 02/04/19 17:39 Consult to Dietitian, Adult Routine Comment: Reason For Exam: 60 pound weight loss Consult to Occupational Therapy Evaluate & Treat Comment: Physician Instructions: Evaluate and treat Consult to Physical Therapy Evaluate & Treat Comment: Physician Instructions: Evaluate and Treat Discharge provider: Mando Peacock MD Summary Discharge Diagnosis: 1. Severe hypokalemia 2. Alcoholic cirrhosis with severe ascites 3. Chronic anemia of chronic disease 4. History of gastric ulcers 5. Chronic hypotension related to liver disease 6. 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 Serum potassium 3.9 on a.m. of discharge. Lasix was discontinued and patient switched to spironolactone for diuretic management of ascites. Patient had 4 L therapeutic paracentesis to relieve ascites. Diuretic management will likely be limited due to low blood pressures and he may need periodic outpatient therapeutic paracentesis to control ascites. Patient has chronic anemia related to liver disease. He also had reported episode of melena although his stool was brown and tested guaiac negative in hospital. It is possible he had an acute bleed that resolved prior to admission. He does have past history of gastric ulcers on EGD. He is supposed to be taking Nexium. He has also been taking full dose daily aspirin at home but has no history of cardiovascular disease. He was transfused 1 unit PRBC during this admission. His hemoglobin is 9.6 and hematocrit 28.0 prior to discharge. He is instructed to discontinue aspirin and avoid aspirin type pain relievers. He should stay on daily Nexium. His blood pressures ran low in hospital, in range of 85-100 systolic but frequently in the mid to high 80s. This is likely associated with his chronic liver disease and 3rd spacing. He denies lightheadedness or dizziness but his gait is chronically very unstable with history of recurrent falls. He was evaluated by PT and OT during this admission. He is deemed to be high fall risk but is at his baseline with generalized weakness and mobility issues. He has a walker at home which she is advised to use at all times. He declined [facility]. He is advised as to complete alcohol cessation. He is instructed to follow up with PCP within next week. Status at Discharge Cognitive/behavioral status at discharge: oriented Functional status at discharge: uses cane/walker Overall status at discharge: patient is back to baseline Time Spent with Patient Greater than 30 minutes Exam Vital Signs (past 8 hours): - 02/07/19 03:16 02/07/19 07:45 Temperature 98.2 F 97.8 F Pulse Rate 89 99 H Respiratory Rate 18 18 Blood Pressure 90/62 85/59 L Pulse Oximetry 93 94 Oxygen Delivery Method Room Air Oxygen Flow Rate 0 Objective Labs Result Diagrams: 02/06/19 05:15 02/07/19 05:50 Labs: Laboratory Results - last 24 hr 02/07/19 05:50 Sodium 131 L Potassium 3.9 Chloride 100 Carbon Dioxide 26 BUN 3 L Creatinine 1.00 Estimated GFR > 60.0 BUN/Creatinine Ratio 3.0 L Glucose 121 H Calcium 7.4 L Discharge Plan Discharge Plan Patient Disposition: Home Discharge Med Rec/Prescriptions Prescriptions: New spironolactone 50 mg tablet 50 mg PO DAILY Qty: 30 RF: 0 acetaminophen 325 mg capsule See Rx Instructions .ROUTE .COMPLEX PRN (Reason: pain) Qty: 30 RF: 0 Continued trazodone 50 mg tablet 50 mg PO DAILY Qty: 30 RF: 2 polyethylene glycol 3350 [Miralax] 17 gram powder in packet 17 gram PO DAILY Qty: 30 RF: 2 potassium 99 mg Tablet 99 mg PO DAILY RF: 0 Complete Multivitamin Tablet 1 tab PO DAILY RF: 0 Changed esomeprazole magnesium [Nexium] 20 mg Capsule,Delayed Release(Dr/Ec) 20 mg PO DAILY Qty: 30 RF: 0 Discontinued furosemide [Lasix] 20 mg tablet 20 mg PO DAILY Qty: 90 RF: 0 aspirin 325 mg Tablet 325 mg PO DAILY RF: 0 Follow up/Referrals: Lucia Stewart DO [Primary Care Provider] - (appt:02/19 @ 9:[address] estrella @ [address] [place] [address] please arrive 20minutes prior to your scheduled appointment ) Provider Discharge Instructions Diet: Diet as Tolerated Visit Report/Discharge Packet Instructions: DI for Ascites, DI for Cirrhosis Discharge Data Primary Care Provider: Lucia Stewart Attending Provider: Sheila Sarkar Admit Date/Time: 02/04/19 15:34
--- NOTE | 2019-02-07 10:51 | P.DS_ITS ---
History of Present Illness Chief complaint: Chronic pain,swollen legs,fatigue Narrative: The patient is a 53-year-old male with a history of liver disease secondary to alcohol, chronic alcohol abuse, GERD who presented to report to custodial as he was instructed to do. The patient was evaluated by a nurse at the custodial who referred him directly to the emergency department. The patient is a somewhat difficult historian. He reports 60 lb weight loss over the past several years. He reports shortness of breath which is worse with exertion. He denies any orthopnea. He has lower extremity edema which has been present for some time. In addition he reports increasing abdominal girth. He reports some tenderness with the swelling of his abdomen as well. He has not had any hematemesis, or bright red blood per rectum. He does report black stool which occurred the past day or so. In addition he reports constipation. The patient has had no fever or chills. He denies any chest pain. He has no headache does report blurred vision. He has had multiple fall and was evaluated in the emergency room with x-rays which were negative the patient reports drinking daily. He is unable to quantify how much alcohol he drinks he does report no prior history of alcohol withdrawal. He has not been hospitalized ever. Patient was seen and evaluated in the emergency department. Was found to have a potassium of 2.4. In addition he was found to have significant ascites S and progressive renal failure. He is admitted to the hospital for further evaluation. Patient reports he ran out of his medications 2 days ago and has not taken them since that time. Discharge Providers Date of admission: 02/04/19 15:34 Discharge Date: 02/07/19 Primary care physician: Lucia Stewart DO Consults: 02/04/19 17:24 Consult to Dietitian, Adult Routine Comment: Reason For Exam: 60+lbs weight loss Consult to Respiratory Therapy Evaluate & Treat Comment: Physician Instructions: Evaluate and treat Consult to Kettle Worker Routine Comment: assess needs at d/c 02/04/19 17:39 Consult to Dietitian, Adult Routine Comment: Reason For Exam: 60 pound weight loss Consult to Occupational Therapy Evaluate & Treat Comment: Physician Instructions: Evaluate and treat Consult to Physical Therapy Evaluate & Treat Comment: Physician Instructions: Evaluate and Treat Discharge provider: Mando Peacock MD Summary Discharge Diagnosis: 1. Severe hypokalemia 2. Alcoholic cirrhosis with severe ascites 3. Chronic anemia of chronic disease 4. History of gastric ulcers 5. Chronic hypotension related to liver disease 6. 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 Serum potassium 3.9 on a.m. of discharge. Lasix was discontinued and patient switched to spironolactone for diuretic management of ascites. Patient had 4 L therapeutic paracentesis to relieve ascites. Diuretic management will likely be limited due to low blood pressures and he may need periodic outpatient therapeutic paracentesis to control ascites. Patient has chronic anemia related to liver disease. He also had reported episode of melena although his stool was brown and tested guaiac negative in hospital. It is possible he had an acute bleed that resolved prior to admission. He does have past history of gastric ulcers on EGD. He is supposed to be taking Nexium. He has also been taking full dose daily aspirin at home but has no history of cardiovascular disease. He was transfused 1 unit PRBC during this admission. His hemoglobin is 9.6 and hematocrit 28.0 prior to discharge. He is instructed to discontinue aspirin and avoid aspirin type pain relievers. He should stay on daily Nexium. His blood pressures ran low in hospital, in range of 85-100 systolic but frequently in the mid to high 80s. This is likely associated with his chronic liver disease and 3rd spacing. He denies lightheadedness or dizziness but his gait is chronically very unstable with history of recurrent falls. He was evaluated by PT and OT during this admission. He is deemed to be high fall risk but is at his baseline with generalized weakness and mobility issues. He has a walker at home which she is advised to use at all times. He declined [facility]. He is advised as to complete alcohol cessation. He is instructed to follow up with PCP within next week. Status at Discharge Cognitive/behavioral status at discharge: oriented Functional status at discharge: uses cane/walker Overall status at discharge: patient is back to baseline Time Spent with Patient Greater than 30 minutes Exam Vital Signs (past 8 hours): - 02/07/19 03:16 02/07/19 07:45 Temperature 98.2 F 97.8 F Pulse Rate 89 99 H Respiratory Rate 18 18 Blood Pressure 90/62 85/59 L Pulse Oximetry 93 94 Oxygen Delivery Method Room Air Oxygen Flow Rate 0 Objective Labs Result Diagrams: 02/06/19 05:15 02/07/19 05:50 Labs: Laboratory Results - last 24 hr 02/07/19 05:50 Sodium 131 L Potassium 3.9 Chloride 100 Carbon Dioxide 26 BUN 3 L Creatinine 1.00 Estimated GFR > 60.0 BUN/Creatinine Ratio 3.0 L Glucose 121 H Calcium 7.4 L Discharge Plan Discharge Plan Patient Disposition: Home Discharge Med Rec/Prescriptions Prescriptions: New spironolactone 50 mg tablet 50 mg PO DAILY Qty: 30 RF: 0 acetaminophen 325 mg capsule See Rx Instructions .ROUTE .COMPLEX PRN (Reason: pain) Qty: 30 RF: 0 Continued trazodone 50 mg tablet 50 mg PO DAILY Qty: 30 RF: 2 polyethylene glycol 3350 [Miralax] 17 gram powder in packet 17 gram PO DAILY Qty: 30 RF: 2 potassium 99 mg Tablet 99 mg PO DAILY RF: 0 Complete Multivitamin Tablet 1 tab PO DAILY RF: 0 Changed esomeprazole magnesium [Nexium] 20 mg Capsule,Delayed Release(Dr/Ec) 20 mg PO DAILY Qty: 30 RF: 0 Discontinued furosemide [Lasix] 20 mg tablet 20 mg PO DAILY Qty: 90 RF: 0 aspirin 325 mg Tablet 325 mg PO DAILY RF: 0 Follow up/Referrals: Lucia Stewart DO [Primary Care Provider] - (appt:02/19 @ 9:[address] estrella @ [address] [place] [address] please arrive 20minutes prior to your scheduled appointment ) Provider Discharge Instructions Diet: Diet as Tolerated Visit Report/Discharge Packet Instructions: DI for Ascites, DI for Cirrhosis Discharge Data Primary Care Provider: Lucia Stewart Attending Provider: Sheila Sarkar Admit Date/Time: 02/04/19 15:34
[2019-02-07 11:10] VITALS: BP 95/67; PULSE 79; RESP 18; TEMP 36.7; O2SAT 95
--- NOTE | 2019-02-07 12:48 | PC.NURSE ---
Discharge: Pt feels ready to d/c home. D/c instructions reviewed with pt and spouse. Rx was elec sent to [facility]. Questions answered. Pt has fallen numerous times at home and once while here. Reviewed falls prevention with pt and spouse. He does have a walker at home but doesn't like to use it. Pt and spouse deny and concerns at time of d/c.
--- NOTE | 2019-02-07 14:46 | CM.DPC ---
DCP/Continued: Reviewed chart. Order obtained for patient to discharge home today. With patient's permission spoke with his deputy county attorney Kaushik June (consent signed in EMR). Rat Farmer reports that patient should d/c home today and not return to detention. Rat Farmer reports case on hold. D/C summary faxed to deputy county attorney. Met with patient and he confirms that he also has spoken with his deputy county attorney and acknowledges that he is to discharge home. Home health recommended. Placed call to Janelle at [facility]. She reports that they can accept but will need to obtain authorization from [employer]. Faxed clinical, orders, F2F, and contact at [employer] to Janelle. Patient aware and agreeable to . He had no preference in agencies. Patient aware and agreeable to d/c plan today. P: Home with [facility]. TYLER Guy
== END 2019-02-07 12:10 | disposition home health service (06) | DRG 433 ==
LOC: ED 15:31 → AC 17:39
PROVIDERS: Admitting Provider Internal Medicine; Emergency Provider Emergency Medicine; PCP Family Medicine; Visit Provider Internal Medicine
DX: K70.31 Alcoholic cirrhosis of liver with ascites (principal); N17.9 Acute kidney failure, unspecified; K92.1 Melena; E87.1 Hypo-osmolality and hyponatremia; E87.6 Hypokalemia; E83.51 Hypocalcemia; F10.20 Alcohol dependence, uncomplicated; K21.9 Gastro-esophageal reflux disease without esophagitis; F17.210 Nicotine dependence, cigarettes, uncomplicated; I95.9 Hypotension, unspecified; W18.30XA Fall on same level, unspecified, initial encounter; Y92.231 Patient bathroom in hospital as the place of occurrence of the external cause; D64.9 Anemia, unspecified; R26.9 Unspecified abnormalities of gait and mobility
CPT/HCPCS: 36415; 36430; 36591; 49083; 70450; 71111; 76705; 80048; 80053; 81003; 81015; 82140; 82550; 82553; 83690; 83735; 83880; 84443; 84484; 85025; 85610; 85730; 86850; 86900; 86901; 87086; 93005; 96365; 96366; 96368; 97116; 97162; 97165; 97535; 99285; 99406; P9016; J0610; J1170; J3475; J3480; P9041

== ENCOUNTER → 2019-02-21 09:07 | Outpatient (CLI) | payer OTHER, SELFPAY ==
[2019-02-04 16:47] VITALS: BMI 25.2
[2019-02-21 10:37] LABS: Hematocrit 29.2 % (41-53); Mean Corpuscular HGB Conc 34.2 % (30-36); Mean Corpuscular Hemoglobin 35.2 PG (26-34); Mean Corpuscular Volume 102.7 fL (80-100); Platelet Count 319 X10^3/uL (150-400); Red Blood Cell Count 2.84 X10^6/uL (4.5-5.9); Red Cell Distribution Width 16.7 % (11.6-14.8); White Blood Cell Count 4.9 X10^3/uL (4.5-11.0)
[2019-02-21 10:49] LABS: Alanine Aminotransferase 9 IU/L (21-72); Albumin 2.5 g/dL (3.5-5.0); Albumin Globulin Ratio 0.6 (1.0-2.8); Alkaline Phosphatase 133 U/L (38-126); Aspartate Aminotransferase 32 IU/L (17-59); BUN Creatinine Ratio 5.7 (6-22); Bilirubin Total 0.4 mg/dL (0.2-1.3); Blood Urea Nitrogen 13 mg/dL (9-20); Calcium 7.7 mg/dL (8.4-10.2); Carbon Dioxide 22 mmol/L (22-32); Chloride 100 mmol/L (98-107); Estimated Glomerular Filt Rate 29.9 mL/min (>60); Glucose 102 mg/dL (70-100); HEMOLYSIS < 15 (0-50); Sodium 131 mmol/L (137-145); Total Protein 6.5 g/dL (6.3-8.2)
[2019-02-21 11:23] LABS: Potassium 2.7 mmol/L (3.4-5.1)
== END ==
PROVIDERS: PCP Family Medicine; Visit Provider Registered Nurse
DX: E87.6 Hypokalemia (principal); K74.60 Unspecified cirrhosis of liver; D64.9 Anemia, unspecified
CPT/HCPCS: 36415; 80053; 85027

== ENCOUNTER 2019-02-21 12:59 | Emergency (ER) | payer OTHER, SELFPAY ==
[2019-02-04 16:47] VITALS: BMI 25.2
[2019-02-21 13:08] VITALS: BP 97/72; PULSE 86; RESP 16; TEMP 36.4; O2SAT 99
--- NOTE | 2019-02-21 13:15 | ED.RECABL ---
HPI - Recheck/Abnormal Lab/Rx General Chief Complaint: Recheck/Abnormal Lab/Rx Stated Complaint: states potasium levels are low per physician Time Seen by Provider: 02/21/19 13:04 Source: patient and old records reviewed Mode of arrival: wheelchair Limitations: no limitations History of Present Illness HPI narrative: 53-year-old male comes to the emergency department sent for low potassium and worsening of his renal function by his primary care provider Haley Wiley. Patient has known cirrhosis. He was seen by myself on February 04 for hypokalemia. Patient today denies any fevers or chills, denies any current shortness of breath or chest pain or pressure. States his abdomen has become more swollen, he has noticed more swelling in his lower extremities. He denies any nausea or vomiting. He has had intermittent constipation and diarrhea and states he normally wears a diaper he also has issues with urination and thinks that he has had some decreased but still having urine output. Patient states he still smoking tobacco, he states he quit drinking alcohol although his last drink was Tuesday. He denies any street drugs other than marijuana. 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 Before and was switched to spironolactone for its potassium-sparing properties. He is also known to have low blood pressure based on his discharge summary and prior visit. Patient does not seem very motivated have all additional intervention. Related Data Home Medications Medication Instructions Recorded Confirmed Complete Multivitamin 1 tab PO DAILY 02/04/19 02/21/19 potassium 99 mg PO DAILY 02/04/19 02/21/19 Previous Rx's Medication Instructions Recorded esomeprazole magnesium [Nexium] 20 mg PO DAILY #30 cap 02/07/19 spironolactone 50 mg PO DAILY #30 tab 02/07/19 Allergies Allergy/AdvReac Type Severity Reaction Status Date / Time Penicillins Allergy Mild unkown, Verified 02/21/19 08:25 childhood Review of Systems Constitutional Denies chills, Denies fever(s) and Denies weakness Cardiovascular Denies chest pain, Denies syncope, Reports edema (b/l lower extremities.), Denies lightheadedness, Denies dyspnea and Denies orthopnea Respiratory Denies chest congestion, Denies cough, Denies dyspnea and Denies wheezing Gastrointestinal Gastrointestinal: Denies abdominal pain, Denies change in bowel habits, Reports constipation (intermittent with diarrhea), Reports diarrhea (intermittent), Denies nausea, Denies vomiting and Reports other (distention) Genitourinary Denies hematuria, Denies dysuria, Denies flank pain, Denies urinary frequency, Denies urinary incontinence, Denies urinary urgency and Reports other (decreased output per patient) Integumentary/Breasts Reports unusual bruising (no new change) Neurologic Denies syncope and Denies weakness Allergic/Immunologic Denies wheezing FOR[facility] Medical History Ankle pain (Chronic 2018) Anxiety (Chronic) Cervical spine disease (Chronic 2003) Chronic back pain (Chronic) GERD (gastroesophageal reflux disease) (Chronic 2004) Hearing loss (Chronic) Lumbar spine pain (Chronic) Recurrent sinusitis (Chronic) Rheumatoid arthritis (Chronic) Seizures (Chronic) Sleep apnea (Chronic 2004) PTSD (post-traumatic stress disorder) (Suspected) Abnormal chest x-ray (Resolved 2015) Foot pain (Resolved) Fractures (Resolved) Hemorrhoids (Resolved 1987) History of head injury (Resolved) History of spleen injury (Resolved) Surgical History Anesthesia (Resolved) Hx of surgical procedure (Resolved ~2004) Family History (Updated 02/04/19 @ 18:06 by Sheila Sarkar MD) Mother Heart disease Social History household members: spouse, family and children Smoking Status: Current every day smoker Tobacco: How many years used: 10 alcohol intake: current Family History Mother Heart disease Social History household members: spouse, family and children Smoking Status: Current every day smoker Tobacco: How many years used: 10 alcohol intake: current Exam Narrative Exam Narrative: GENERAL: Alert and oriented x three, in mild distress. HEENT: Head normocephalic, atraumatic, EOMI, pupils reactive, face symmetric, moist mucous membranes NECK: Supple, full range of motion CARDIOVASCULAR: Regular rate and rhythm without murmurs, rubs or gallops. RESPIRATORY: Breath sounds equal bilaterally, no wheezes rales or rhonchi. ABDOMEN: Soft, nontender, moderately distended, abdomen is not tense. Normoactive bowel sounds all 4 quadrants. No guarding or rebound, rigidity, no mass : No CVA tenderness EXTREMITIES: Normal range of motion, patient has bilateral lower extremity edema, 2+. Patient has some mild redness bilateral lower extremities. Neurovascularly intact NEUROLOGICAL: Cranial nerves II through XII grossly intact. Moving all extremities SKIN: Warm, dry, no petechiae, no rashes or lesions. Initial Vital Signs Initial Vital Signs: Vital Signs Temperature 97.6 F 02/21/19 13:08 Pulse Rate 86 02/21/19 13:08 Respiratory Rate 16 02/21/19 13:08 Blood Pressure 97/72 02/21/19 13:08 Pulse Oximetry 99 02/21/19 13:08 Scores GCS Cece coma scale eye opening: Spontaneous Conway coma scale verbal response: Orientated Cece coma scale motor response: Obey commands Conway coma scale total score: 15 Course Orders Ordered: ED Orders 02/21/19 14:15 Ammonia (NH3) Stat Complete Blood Count AUTO DIFF Stat Comprehensive Metabolic Panel Stat Partial Thromboplastin Time Stat Prothrombin Time INR Stat 02/21/19 15:10 US abdomen complete Stat 02/21/19 15:47 CT kidney ureter bladder (KUB) Stat 02/21/19 18:35 Urinalysis and Microscopic Stat Urine Culture Stat Discontinued Medications Potassium Chloride 40 meq/ (Sodium Chloride) 520 mls @ 130 mls/hr IV NOW ONE Stop: 02/21/19 19:08 Last Infusion: 02/21/19 18:47 Dose: 0 mls/hr Admin: 02/21/19 15:25 Dose: 130 mls/hr Sodium Chloride (Normal Saline 0.9%) 1,000 mls @ 150 mls/hr IV CONT VIANCA Last Infusion: 02/21/19 18:46 Dose: 0 mls/hr Admin: 02/21/19 15:25 Dose: 150 mls/hr Potassium Chloride (Potassium Chloride) 40 meq PO NOW ONE Stop: 02/21/19 18:26 Last Admin: 02/21/19 18:46 Dose: 40 meq Vital Signs - 8 hr 02/21/19 13:08 02/21/19 15:32 02/21/19 17:02 Temperature 97.6 F Pulse Rate 86 73 70 Respiratory Rate 16 22 14 Blood Pressure 97/72 Blood Pressure [Right Arm] 89/65 L 93/62 Pulse Oximetry 99 97 99 02/21/19 18:51 Temperature Pulse Rate 75 Respiratory Rate 15 Blood Pressure 95/66 Blood Pressure [Right Arm] Pulse Oximetry 96 MDM - Recheck/Abnormal Lab/Rx Lab Data Attestation: I reviewed the patient's lab results. Result diagrams: 02/21/19 14:15 02/21/19 14:15 Lab Results 02/21/19 02/21/19 02/21/19 Range/Units 14:15 14:15 14:15 WBC 5.2 (4.5-11.0) X10^3/uL RBC 2.66 L (4.5-5.9) X10^6/uL Hgb 9.5 L (13.5-17.5) g/dL Hct 27.2 L (41-53) % MCV 102.1 H (80-100) fL MCH 35.9 H (26-34) PG MCHC 35.2 (30-36) % RDW 16.6 H (11.6-14.8) % Plt Count 303 (150-400) X10^3/uL Neut % (Auto) 72.7 (50-75) % Lymph % (Auto) 16.3 L (25-40) % [place] % (Auto) 9.5 (3-14) % Eos % (Auto) 1.0 L (2-4) % Baso % (Auto) 0.5 (0-2) % Neut # (Auto) 3800 (2204-7291) /uL Lymph # (Auto) 800 L (8369-4950) /uL [place] # (Auto) 500 (0-900) /uL Eos # (Auto) 100 (0-450) /uL Baso # (Auto) 0 (0-100) /uL PT 16.2 H (10.1-12.7) SECONDS INR 1.4 H (0.9-1.3) APTT 34 D (26.4-36.2) SECONDS Sodium 131 L (137-145) mmol/L Potassium 2.6 L* (3.4-5.1) mmol/L Chloride 101 (98-107) mmol/L Carbon Dioxide 20 L (22-32) mmol/L BUN 13 (9-20) mg/dL Creatinine 2.10 H (0.66-1.25) mg/dL Estimated GFR 33.2 L (>60) mL/min BUN/Creatinine Ratio 6.2 (6-22) Glucose 101 H (70-100) mg/dL Calcium 7.5 L (8.4-10.2) mg/dL Total Bilirubin 0.4 (0.2-1.3) mg/dL AST 29 (17-59) IU/L ALT 15 L (21-72) IU/L Alkaline Phosphatase 121 (38-126) U/L Ammonia (9-30) umol/L Total Protein 6.2 L (6.3-8.2) g/dL Albumin 2.4 L (3.5-5.0) g/dL Globulin 3.8 (1.7-4.1) g/dL Albumin/Globulin Ratio 0.6 L (1.0-2.8) Urine Color Urine Appearance Urine pH (4.5-8.0) Ur Specific Colon (1.000-1.035) Urine Protein (Negative) Urine Glucose (UA) (Negative) g/dL Urine Ketones (NEGATIVE) Urine Occult Blood (Negative) Urine Nitrate (Negative) Urine Bilirubin (NEGATIVE) Urine Urobilinogen (0.2) E.U./dL Ur Leukocyte Esterase (NEGATIVE) Urine RBC (0-5/HPF) Urine WBC (0-5/HPF) Ur Squamous Epith Cells (0-5/HPF) Amorphous Sediment Urine Bacteria (None) Urine Mucus (Negative) Ur Culture Indicated? 02/21/19 02/21/19 Range/Units 14:15 18:35 WBC (4.5-11.0) X10^3/uL RBC (4.5-5.9) X10^6/uL Hgb (13.5-17.5) g/dL Hct (41-53) % MCV (80-100) fL MCH (26-34) PG MCHC (30-36) % RDW (11.6-14.8) % Plt Count (150-400) X10^3/uL Neut % (Auto) (50-75) % Lymph % (Auto) (25-40) % [place] % (Auto) (3-14) % Eos % (Auto) (2-4) % Baso % (Auto) (0-2) % Neut # (Auto) (8239-9505) /uL Lymph # (Auto) (3723-4488) /uL [place] # (Auto) (0-900) /uL Eos # (Auto) (0-450) /uL Baso # (Auto) (0-100) /uL PT (10.1-12.7) SECONDS INR (0.9-1.3) APTT (26.4-36.2) SECONDS Sodium (137-145) mmol/L Potassium (3.4-5.1) mmol/L Chloride (98-107) mmol/L Carbon Dioxide (22-32) mmol/L BUN (9-20) mg/dL Creatinine (0.66-1.25) mg/dL Estimated GFR (>60) mL/min BUN/Creatinine Ratio (6-22) Glucose (70-100) mg/dL Calcium (8.4-10.2) mg/dL Total Bilirubin (0.2-1.3) mg/dL AST (17-59) IU/L ALT (21-72) IU/L Alkaline Phosphatase (38-126) U/L Ammonia 15.0 (9-30) umol/L Total Protein (6.3-8.2) g/dL Albumin (3.5-5.0) g/dL Globulin (1.7-4.1) g/dL Albumin/Globulin Ratio (1.0-2.8) Urine Color Yellow Urine Appearance Sl cloudy Urine pH 5.0 (4.5-8.0) Ur Specific Colon 1.020 (1.000-1.035) Urine Protein Trace H (Negative) Urine Glucose (UA) Negative (Negative) g/dL Urine Ketones Negative (NEGATIVE) Urine Occult Blood 3+ H (Negative) Urine Nitrate Negative (Negative) Urine Bilirubin Negative (NEGATIVE) Urine Urobilinogen 0.2 (0.2) E.U./dL Ur Leukocyte Esterase 1+ H (NEGATIVE) Urine RBC 30-100/hpf H (0-5/HPF) Urine WBC 10-30/hpf H (0-5/HPF) Ur Squamous Epith Cells 0-1 /hpf (0-5/HPF) Amorphous Sediment 2+ Urine Bacteria Few (2-10) H (None) Urine Mucus 1+ H (Negative) Ur Culture Indicated? Specimen cultured Imaging Data CT scan - abdomen: Radiologist's impression: [address] [address] [address] Scan Report Signed Patient: Danny Webber KMR#: [id number] : 1965Acct:[id number] Age/Sex: 53 / MDate of Service: 02/21/19 Loc: ED Accession Number: [id number] Procedure: CT kidney ureter bladder (KUB) Ordering Provider: Bev Nunez D.O. PROCEDURE: CT KIDNEY URETER BLADDER (KUB) INDICATIONS: right hydro on US, acute kidney injury TECHNIQUE: Noncontrast 5 mm thick sections acquired from the diaphragms to the symphysis. 5 mm thick coronal and sagittal reformats were then performed. For radiation dose reduction, the following was used: automated exposure control, adjustment of mA and/or kV according to patient size. COMPARISON: None. FINDINGS: Image quality: Excellent. Lung bases: Small right pleural effusion is seen. Bibasilar dependent atelectasis is noted.. Heart size is enlarged, no pericardial effusion. Urinary system: Severe right-sided hydronephrosis is seen. There is also proximal to mid hydroureter. 8 mm stone is seen in distal right ureter series 2 image 78 and series 3 image 47. Tiny 1-2 mm nonobstructing stones are seen in left kidney. No left-sided hydronephrosis. 7 mm exophytic hyperdensity involving upper pole of left kidney anteriorly, and may represent a hyperdense cyst. Mild right perinephric fat stranding is seen. No perinephric fluid collection. Left ureter is within normal limits. Bilateral phleboliths are seen in lower pelvis. Bladder wall thickness is normal; no calcified bladder stones. Other solid organs: Cirrhotic appearing liver is seen, and no gross discrete hepatic lesion. Gallbladder is contracted and shows no gross abnormality.. Pancreas is normal in contours. Spleen is normal in size. No adrenal nodules. Peritoneum and bowel: Unenhanced bowel loops demonstrate normal wall thickness and caliber. No peritoneal free air. A large amount of ascites fluid throughout abdomen and pelvis is seen. Nodes and vessels: No retroperitoneal or mesenteric adenopathy by size criteria. Aorta and inferior vena cava are normal in caliber. Abdominal wall: No ventral hernias. Pelvis: No inguinal hernias or adenopathy. Bones: No suspicious bony lesions. No vertebral body compression fractures. Degenerative disc disease throughout lower thoracic spine and lumbar spine is seen. IMPRESSION: 1. 8 mm right distal ureteral stone with moderate to severe right-sided hydronephrosis and proximal to mid hydroureter. Mild to moderate right perinephric fat stranding. 2. Tiny nonobstructing left renal calculi. Possible hyperdense cyst or hemorrhagic cyst involving upper pole of left kidney. No left-sided hydronephrosis. Normal appearing left ureter and urinary bladder. 3. Liver cirrhosis and large amount of ascites fluid. No peritoneal free air. No bowel obstruction. 4. Small right pleural effusion and bibasilar atelectasis. Cardiomegaly. Dictated by: Jesus Alberto Navarro M.D. on 02/21/2019 at 16:19 Approved b US - abdomen: Radiologist's impression: AkbarDanny Eagle 53 M 1965 [place] [address] Ultrasound Report Signed Patient: Danny Webber KMR#: [id number] : 1965Acct:[id number] Age/Sex: 53 / MDate of Service: 02/21/19 Loc: ED Accession Number: [id number] Procedure: US abdomen complete Ordering Provider: Bev Nunez D.O. PROCEDURE: US ABDOMEN COMPLETE INDICATIONS: ACUTE RENAL FAILURE, ASCITES TECHNIQUE: Real-time scanning was performed of the abdominal and retroperitoneal organs, with image documentation. COMPARISON: None. FINDINGS: Liver: The liver is slightly decreased in size, mildly hyperechoic in echotexture with a micro-lobulated margin. No focal mass. Gallbladder: The gallbladder is partially distended with mild wall thickening, nonspecific in the setting of ascites. The no definite shadowing stones Biliary ducts: Intrahepatic bile ducts are non-dilated. Extrahepatic bile duct caliber measures 5 mm. Normal is 6-7 mm or less in diameter, or 10 mm or less post-cholecystectomy. Pancreas: Not visualized due to lack of good acoustic window. Spleen: Spleen is normal in size and homogeneous in echotexture. Kidneys: Kidneys are normal in size. Right kidney measures 10.4 cm long; left kidney measures 12.0 cm long. There is severe right hydronephrosis and dilated visible proximal ureter. Left renal morphology is normal. No solid masses. Aorta: Visualized aorta is normal in caliber at less than 3 cm. Iliacs: Not seen. IVC: Intrahepatic inferior vena cava is patent. Miscellaneous: A large amount of ascites present. A right lower quadrant skin site marked for safe paracentesis. IMPRESSION: 1. Severe right hydronephrosis and dilated proximal ureter. Distal obstruction is suspected but not visible. Consider a CT KUB. 2. Large amount of ascites. Right lower quadrant skin site was marked for safe paracentesis window. 3. A cirrhotic morphology to liver. 4. Nonvisualization of the spleen or common iliac arteries. Dictated by: Shelly Oscar M.D. on 02/21/2019 at 16:33 Approved by: Shelly Oscar M.D. on 02/21/2019 at 16:38 ECG Data Attestation: I personally reviewed and interpreted this ECG as follows: MDM Narrative Medical decision making narrative: Patient is currently refusing to come into the hospital. We do not have Urology which he may need as he is having worsening renal function with what looks like an obstructing stone. White count, hemoglobin appears stable. Platelets are 300. Coags are elevated likely related to patient's cirrhosis. Patient's potassium is 2.6 he also has an elevation in his creatinine at 2.3 which on repeat was 2.1 here today. Patient has ultrasound that showed ascites but also some right hydro with no clear obstruction. CT KUB shows severe right hydro with dilated proximal ureter distal obstruction with an 8 mm stone. He has [id number] right perinephric stranding. No free air. Patient had long discussion he was receiving potassium IV. He does not wish to be in the hospital he was unhappy to even arrive here. He understands the risks he understands that he could go home and tonight. He is DNR/DNI. Had a long discussion with him and his . She is tearful but understanding of his wishes some we did give him an additional dose of oral potassium but he did not finish his complete infusion. Patient was also given referral to Dr. Yang who would follow with the patient if he is willing. And patient and were given a referral to Dr. Yang. I did ask them to get his potassium recheck tomorrow as well as his renal function to re-evaluate his numbers. And he was encouraged that he could come back at any time. Patient is alert, he is oriented he appears competent to make his own decisions. His is upset but respect his decisions as well at this time. Spoke with Dr. Yang, he is happy to follow with patient, asks they call in the morning. Although he also feels patient would do better inpatient. Discharge Plan Departure Patient Disposition: Home Clinical Impression: Hypokalemia, Acute kidney injury, Hydronephrosis with renal and ureteral calculous obstruction, Hepatic cirrhosis Discharge Date/Time: 02/21/19 18:52 Interventions: ED Discharge Assessment Last Done: 02/21/19 18:51 Instructions: DI for Hypokalemia Activity Restrictions/Additional Instructions: Follow up tomorrow with your Haley Saurabh and/or Lucia Stewart for recheck of your potassium and kidney failure. You have a kidney stone that is blocking urine from leaving your kidney and causing your kidney failure Call the urologist for an appointment, they have been contacted. You can from your low potassium and kidney failure. It is recommended you stay in the hospital. Take potassium as prescribed. Take flomax as prescribed. You may return to the ER at any time for recheck, repeat labs and additional treatment. If you have chest pain, shortness of breath, passing out, worsening swelling or other new changes. Prescriptions: No Action potassium 99 mg Tablet 99 mg PO DAILY RF: 0 Complete Multivitamin Tablet 1 tab PO DAILY RF: 0 spironolactone 50 mg tablet 50 mg PO DAILY Qty: 30 RF: 0 esomeprazole magnesium [Nexium] 20 mg Capsule,Delayed Release(Dr/Ec) 20 mg PO DAILY Qty: 30 RF: 0 Referrals: Shanda Yang MD [Physician] - Lucia Stewart DO [Primary Care Provider] -
--- NOTE | 2019-02-21 13:43 | ED_ITS ---
HPI - Recheck/Abnormal Lab/Rx General Chief Complaint: Recheck/Abnormal Lab/Rx Stated Complaint: states potasium levels are low per physician Time Seen by Provider: 02/21/19 13:04 Source: patient and old records reviewed Mode of arrival: wheelchair Limitations: no limitations History of Present Illness HPI narrative: 53-year-old male comes to the emergency department sent for low potassium and worsening of his renal function by his primary care provider Haley Wiley. Patient has known cirrhosis. He was seen by myself on February 04 for hypokalemia. Patient today denies any fevers or chills, denies any current shortness of breath or chest pain or pressure. States his abdomen has become more swollen, he has noticed more swelling in his lower extremities. He denies any nausea or vomiting. He has had intermittent constipation and diarrhea and states he normally wears a diaper he also has issues with urination and thinks that he has had some decreased but still having urine output. Patient states he still smoking tobacco, he states he quit drinking alcohol although his last drink was Tuesday. He denies any street drugs other than marijuana. He states that he has not established with a mechanic helper. Before and was switched to spironolactone for its potassium-sparing properties. He is also known to have low blood pressure based on his discharge summary and prior visit. Patient does not seem very motivated have all additional intervention. Related Data Home Medications Medication Instructions Recorded Confirmed Complete Multivitamin 1 tab PO DAILY 02/04/19 02/21/19 potassium 99 mg PO DAILY 02/04/19 02/21/19 Previous Rx's Medication Instructions Recorded esomeprazole magnesium [Nexium] 20 mg PO DAILY #30 cap 02/07/19 spironolactone 50 mg PO DAILY #30 tab 02/07/19 Allergies Allergy/AdvReac Type Severity Reaction Status Date / Time Penicillins Allergy Mild unkown, Verified 02/21/19 08:25 childhood Review of Systems Constitutional Denies chills, Denies fever(s) and Denies weakness Cardiovascular Denies chest pain, Denies syncope, Reports edema (b/l lower extremities.), Denies lightheadedness, Denies dyspnea and Denies orthopnea Respiratory Denies chest congestion, Denies cough, Denies dyspnea and Denies wheezing Gastrointestinal Gastrointestinal: Denies abdominal pain, Denies change in bowel habits, Reports constipation (intermittent with diarrhea), Reports diarrhea (intermittent), Denies nausea, Denies vomiting and Reports other (distention) Genitourinary Denies hematuria, Denies dysuria, Denies flank pain, Denies urinary frequency, Denies urinary incontinence, Denies urinary urgency and Reports other (decreased output per patient) Integumentary/Breasts Reports unusual bruising (no new change) Neurologic Denies syncope and Denies weakness Allergic/Immunologic Denies wheezing [facility] Medical History Ankle pain (Chronic 2018) Anxiety (Chronic) Cervical spine disease (Chronic 2003) Chronic back pain (Chronic) GERD (gastroesophageal reflux disease) (Chronic 2004) Hearing loss (Chronic) Lumbar spine pain (Chronic) Recurrent sinusitis (Chronic) Rheumatoid arthritis (Chronic) Seizures (Chronic) Sleep apnea (Chronic 2004) PTSD (post-traumatic stress disorder) (Suspected) Abnormal chest x-ray (Resolved 2015) Foot pain (Resolved) Fractures (Resolved) Hemorrhoids (Resolved 1987) History of head injury (Resolved) History of spleen injury (Resolved) Surgical History Anesthesia (Resolved) Hx of surgical procedure (Resolved ~2004) Family History (Updated 02/04/19 @ 18:06 by Sheila Sarkar MD) Mother Heart disease Social History household members: spouse, family and children Smoking Status: Current every day smoker Tobacco: How many years used: 10 alcohol intake: current Family History Mother Heart disease Social History household members: spouse, family and children Smoking Status: Current every day smoker Tobacco: How many years used: 10 alcohol intake: current Exam Narrative Exam Narrative: GENERAL: Alert and oriented x three, in mild distress. HEENT: Head normocephalic, atraumatic, EOMI, pupils reactive, face symmetric, moist mucous membranes NECK: Supple, full range of motion CARDIOVASCULAR: Regular rate and rhythm without murmurs, rubs or gallops. RESPIRATORY: Breath sounds equal bilaterally, no wheezes rales or rhonchi. ABDOMEN: Soft, nontender, moderately distended, abdomen is not tense. Normoactive bowel sounds all 4 quadrants. No guarding or rebound, rigidity, no mass : No CVA tenderness EXTREMITIES: Normal range of motion, patient has bilateral lower extremity edema, 2+. Patient has some mild redness bilateral lower extremities. Neurovascularly intact NEUROLOGICAL: Cranial nerves II through XII grossly intact. Moving all extremities SKIN: Warm, dry, no petechiae, no rashes or lesions. Initial Vital Signs Initial Vital Signs: Vital Signs Temperature 97.6 F 02/21/19 13:08 Pulse Rate 86 02/21/19 13:08 Respiratory Rate 16 02/21/19 13:08 Blood Pressure 97/72 02/21/19 13:08 Pulse Oximetry 99 02/21/19 13:08 Scores GCS Cece coma scale eye opening: Spontaneous Armstrong coma scale verbal response: Orientated Cece coma scale motor response: Obey commands Armstrong coma scale total score: 15 Course Orders Ordered: ED Orders 02/21/19 14:15 Ammonia (NH3) Stat Complete Blood Count AUTO DIFF Stat Comprehensive Metabolic Panel Stat Partial Thromboplastin Time Stat Prothrombin Time INR Stat 02/21/19 15:10 US abdomen complete Stat 02/21/19 15:47 CT kidney ureter bladder (KUB) Stat 02/21/19 18:35 Urinalysis and Microscopic Stat Urine Culture Stat Discontinued Medications Potassium Chloride 40 meq/ (Sodium Chloride) 520 mls @ 130 mls/hr IV NOW ONE Stop: 02/21/19 19:08 Last Infusion: 02/21/19 18:47 Dose: 0 mls/hr Admin: 02/21/19 15:25 Dose: 130 mls/hr Sodium Chloride (Normal Saline 0.9%) 1,000 mls @ 150 mls/hr IV CONT VIANCA Last Infusion: 02/21/19 18:46 Dose: 0 mls/hr Admin: 02/21/19 15:25 Dose: 150 mls/hr Potassium Chloride (Potassium Chloride) 40 meq PO NOW ONE Stop: 02/21/19 18:26 Last Admin: 02/21/19 18:46 Dose: 40 meq Vital Signs - 8 hr 02/21/19 13:08 02/21/19 15:32 02/21/19 17:02 Temperature 97.6 F Pulse Rate 86 73 70 Respiratory Rate 16 22 14 Blood Pressure 97/72 Blood Pressure [Right Arm] 89/65 L 93/62 Pulse Oximetry 99 97 99 02/21/19 18:51 Temperature Pulse Rate 75 Respiratory Rate 15 Blood Pressure 95/66 Blood Pressure [Right Arm] Pulse Oximetry 96 MDM - Recheck/Abnormal Lab/Rx Lab Data Attestation: I reviewed the patient's lab results. Result diagrams: 02/21/19 14:15 02/21/19 14:15 Lab Results 02/21/19 02/21/19 02/21/19 Range/Units 14:15 14:15 14:15 WBC 5.2 (4.5-11.0) X10^3/uL RBC 2.66 L (4.5-5.9) X10^6/uL Hgb 9.5 L (13.5-17.5) g/dL Hct 27.2 L (41-53) % MCV 102.1 H (80-100) fL MCH 35.9 H (26-34) PG MCHC 35.2 (30-36) % RDW 16.6 H (11.6-14.8) % Plt Count 303 (150-400) X10^3/uL Neut % (Auto) 72.7 (50-75) % Lymph % (Auto) 16.3 L (25-40) % [place] % (Auto) 9.5 (3-14) % Eos % (Auto) 1.0 L (2-4) % Baso % (Auto) 0.5 (0-2) % Neut # (Auto) 3800 (8801-8709) /uL Lymph # (Auto) 800 L (6707-7880) /uL [place] # (Auto) 500 (0-900) /uL Eos # (Auto) 100 (0-450) /uL Baso # (Auto) 0 (0-100) /uL PT 16.2 H (10.1-12.7) SECONDS INR 1.4 H (0.9-1.3) APTT 34 D (26.4-36.2) SECONDS Sodium 131 L (137-145) mmol/L Potassium 2.6 L* (3.4-5.1) mmol/L Chloride 101 (98-107) mmol/L Carbon Dioxide 20 L (22-32) mmol/L BUN 13 (9-20) mg/dL Creatinine 2.10 H (0.66-1.25) mg/dL Estimated GFR 33.2 L (>60) mL/min BUN/Creatinine Ratio 6.2 (6-22) Glucose 101 H (70-100) mg/dL Calcium 7.5 L (8.4-10.2) mg/dL Total Bilirubin 0.4 (0.2-1.3) mg/dL AST 29 (17-59) IU/L ALT 15 L (21-72) IU/L Alkaline Phosphatase 121 (38-126) U/L Ammonia (9-30) umol/L Total Protein 6.2 L (6.3-8.2) g/dL Albumin 2.4 L (3.5-5.0) g/dL Globulin 3.8 (1.7-4.1) g/dL Albumin/Globulin Ratio 0.6 L (1.0-2.8) Urine Color Urine Appearance Urine pH (4.5-8.0) Ur Specific [place] (1.000-1.035) Urine Protein (Negative) Urine Glucose (UA) (Negative) g/dL Urine Ketones (NEGATIVE) Urine Occult Blood (Negative) Urine Nitrate (Negative) Urine Bilirubin (NEGATIVE) Urine Urobilinogen (0.2) E.U./dL Ur Leukocyte Esterase (NEGATIVE) Urine RBC (0-5/HPF) Urine WBC (0-5/HPF) Ur Squamous Epith Cells (0-5/HPF) Amorphous Sediment Urine Bacteria (None) Urine Mucus (Negative) Ur Culture Indicated? 02/21/19 02/21/19 Range/Units 14:15 18:35 WBC (4.5-11.0) X10^3/uL RBC (4.5-5.9) X10^6/uL Hgb (13.5-17.5) g/dL Hct (41-53) % MCV (80-100) fL MCH (26-34) PG MCHC (30-36) % RDW (11.6-14.8) % Plt Count (150-400) X10^3/uL Neut % (Auto) (50-75) % Lymph % (Auto) (25-40) % [place] % (Auto) (3-14) % Eos % (Auto) (2-4) % Baso % (Auto) (0-2) % Neut # (Auto) (8251-9031) /uL Lymph # (Auto) (8215-7397) /uL [place] # (Auto) (0-900) /uL Eos # (Auto) (0-450) /uL Baso # (Auto) (0-100) /uL PT (10.1-12.7) SECONDS INR (0.9-1.3) APTT (26.4-36.2) SECONDS Sodium (137-145) mmol/L Potassium (3.4-5.1) mmol/L Chloride (98-107) mmol/L Carbon Dioxide (22-32) mmol/L BUN (9-20) mg/dL Creatinine (0.66-1.25) mg/dL Estimated GFR (>60) mL/min BUN/Creatinine Ratio (6-22) Glucose (70-100) mg/dL Calcium (8.4-10.2) mg/dL Total Bilirubin (0.2-1.3) mg/dL AST (17-59) IU/L ALT (21-72) IU/L Alkaline Phosphatase (38-126) U/L Ammonia 15.0 (9-30) umol/L Total Protein (6.3-8.2) g/dL Albumin (3.5-5.0) g/dL Globulin (1.7-4.1) g/dL Albumin/Globulin Ratio (1.0-2.8) Urine Color Yellow Urine Appearance Sl cloudy Urine pH 5.0 (4.5-8.0) Ur Specific [place] 1.020 (1.000-1.035) Urine Protein Trace H (Negative) Urine Glucose (UA) Negative (Negative) g/dL Urine Ketones Negative (NEGATIVE) Urine Occult Blood 3+ H (Negative) Urine Nitrate Negative (Negative) Urine Bilirubin Negative (NEGATIVE) Urine Urobilinogen 0.2 (0.2) E.U./dL Ur Leukocyte Esterase 1+ H (NEGATIVE) Urine RBC 30-100/hpf H (0-5/HPF) Urine WBC 10-30/hpf H (0-5/HPF) Ur Squamous Epith Cells 0-1 /hpf (0-5/HPF) Amorphous Sediment 2+ Urine Bacteria Few (2-10) H (None) Urine Mucus 1+ H (Negative) Ur Culture Indicated? Specimen cultured Imaging Data CT scan - abdomen: Radiologist's impression: [address] [address] [address] Scan Report Signed Patient: Danny Webber KMR#: [id number] : 1965Acct:[id number] Age/Sex: 53 / MDate of Service: 02/21/19 Loc: ED Accession Number: [id number] Procedure: CT kidney ureter bladder (KUB) Ordering Provider: Bev Nunez D.O. PROCEDURE: CT KIDNEY URETER BLADDER (KUB) INDICATIONS: right hydro on US, acute kidney injury TECHNIQUE: Noncontrast 5 mm thick sections acquired from the diaphragms to the symphysis. 5 mm thick coronal and sagittal reformats were then performed. For radiation dose reduction, the following was used: automated exposure control, adjustment of mA and/or kV according to patient size. COMPARISON: None. FINDINGS: Image quality: Excellent. Lung bases: Small right pleural effusion is seen. Bibasilar dependent atelectasis is noted.. Heart size is enlarged, no pericardial effusion. Urinary system: Severe right-sided hydronephrosis is seen. There is also proximal to mid hydroureter. 8 mm stone is seen in distal right ureter series 2 image 78 and se iraida 3 image 47. Tiny 1-2 mm nonobstructing stones are seen in left kidney. No left- sided hydronephrosis. 7 mm exophytic hyperdensity involving upper pole of left kidney anteriorly, and may represent a hyperdense cyst. Mild right perinephric fat stranding is seen. No perinephric fluid collection. Left ureter is within normal limits. Bilateral phleboliths are seen in lower pelvis. Bladder wall thickness is normal; no calcified bladder stones. Other solid organs: Cirrhotic appearing liver is seen, and no gross discrete hepatic lesion. Gallbladder is contracted and shows no gross abnormality.. Pancreas is normal in contours. Spleen is normal in size. No adrenal nodules. Peritoneum and bowel: Unenhanced bowel loops demonstrate normal wall thickness and caliber. No peritoneal free air. A large amount of ascites fluid throughout abdomen and pelvis is seen. Nodes and vessels: No retroperitoneal or mesenteric adenopathy by size criteria. Aorta and inferior vena cava are normal in caliber. Abdominal wall: No ventral hernias. Pelvis: No inguinal hernias or adenopathy. Bones: No suspicious bony lesions. No vertebral body compression fractures. Degenerative disc disease throughout lower thoracic spine and lumbar spine is seen. IMPRESSION: 1. 8 mm right distal ureteral stone with moderate to severe right-sided hydronephrosis and proximal to mid hydroureter. Mild to moderate right perinephric fat stranding. 2. Tiny nonobstructing left renal calculi. Possible hyperdense cyst or hemorrhagic cyst involving upper pole of left kidney. No left-sided hydronephrosis. Normal appearing left ureter and urinary bladder. 3. Liver cirrhosis and large amount of ascites fluid. No peritoneal free air. No bowel obstruction. 4. Small right pleural effusion and bibasilar atelectasis. Cardiomegaly. Dictated by: Jesus Alberto Navarro M.D. on 02/21/2019 at 16:19 Approved b US - abdomen: Radiologist's impression: Danny Webber 53 M 1965 [place] [address] Ultrasound Report Signed Patient: Danny Webber KMR#: [id number] : 1965Acct:[id number] Age/Sex: 53 / MDate of Service: 02/21/19 Loc: ED Accession Number: [id number] Procedure: US abdomen complete Ordering Provider: Bev Nunez D.O. PROCEDURE: US ABDOMEN COMPLETE INDICATIONS: ACUTE RENAL FAILURE, ASCITES TECHNIQUE: Real-time scanning was performed of the abdominal and retroperitoneal organs, with image documentation. COMPARISON: None. FINDINGS: Liver: The liver is slightly decreased in size, mildly hyperechoic in echot exture with a micro-lobulated margin. No focal mass. Gallbladder: The gallbladder is partially distended with mild wall thickening, nonspecific in the setting of ascites. The no definite shadowing stones Biliary ducts: Intrahepatic bile ducts are non-dilated. Extrahepatic bile duct caliber measures 5 mm. Normal is 6-7 mm or less in diameter, or 10 mm or less post-cholecystectomy. Pancreas: Not visualized due to lack of good acoustic window. Spleen: Spleen is normal in size and homogeneous in echotexture. Kidneys: Kidneys are normal in size. Right kidney measures 10.4 cm long; left kidney measures 12.0 cm long. There is severe right hydronephrosis and dilated visible proximal ureter. Left renal morphology is normal. No solid masses. Aorta: Visualized aorta is normal in caliber at less than 3 cm. Iliacs: Not seen. IVC: Intrahepatic inferior vena cava is patent. Miscellaneous: A large amount of ascites present. A right lower quadrant skin site marked for safe paracentesis. IMPRESSION: 1. Severe right hydronephrosis and dilated proximal ureter. Distal obstruction is suspected but not visible. Consider a CT KUB. 2. Large amount of ascites. Right lower quadrant skin site was marked for safe paracentesis window. 3. A cirrhotic morphology to liver. 4. Nonvisualization of the spleen or common iliac arteries. Dictated by: Shelly Oscar M.D. on 02/21/2019 at 16:33 Approved by: Shelly Oscar M.D. on 02/21/2019 at 16:38 ECG Data Attestation: I personally reviewed and interpreted this ECG as follows: MDM Narrative Medical decision making narrative: Patient is currently refusing to come into the hospital. We do not have Urology which he may need as he is having worsening renal function with what looks like an obstructing stone. White count, hemoglobin appears stable. Platelets are 300. Coags are elevated likely related to patient's cirrhosis. Patient's potassium is 2.6 he also has an eleva tion in his creatinine at 2.3 which on repeat was 2.1 here today. Patient has ultrasound that showed ascites but also some right hydro with no clear obstruction. CT KUB shows severe right hydro with dilated proximal ureter distal obstruction with an 8 mm stone. He has [id number] right perin ephric stranding. No free air. Patient had long discussion he was receiving potassium IV. He does not wish to be in the hospital he was unhappy to even arrive here. He understands the risks he understands that he could go home and tonight. He is DNR/DNI. Had a long discussion with him and his . She is tearful but understanding of his wishes some we did give him an additional dose of oral potassium but he did not finish his complete infusion. Patient was also given referral to Dr. Yang who would follow with the patient if he is willing. And patient and were given a referral to Dr. Yang. I did ask them to get his potassium recheck tomorrow as well as his renal function to re- evaluate his numbers. And he was encouraged that he could come back at any time. Patient is alert, he is oriented he appears competent to make his own decisions. His is upset but respect his decisions as well at this time. Spoke with Dr. Yang, he is happy to follow with patient, asks they call in the morning. Although he also feels patient would do better inpatient. Discharge Plan Departure Patient Disposition: Home Clinical Impression: Hypokalemia, Acute kidney injury, Hydronephrosis with renal and ureteral calculous obstruction, Hepatic cirrhosis Discharge Date/Time: 02/21/19 18:52 Interventions: ED Discharge Assessment Last Done: 02/21/19 18:51 Instructions: DI for Hypokalemia Activity Restrictions/Additional Instructions: Follow up tomorrow with your Haley Wiley and/or Lucia Stewart for recheck of your potassium and kidney failure. You have a kidney stone that is blocking urine from leaving your kidney and causing your kidney failure Call the urologist for an appointment, they have been contacted. You can from your low potassium and kidney failure. It is recommended you stay in the hospital. Take potassium as prescribed. Take flomax as prescribed. You may return to the ER at any time for recheck, repeat labs and additional treatment. If you have chest pain, shortness of breath, passing out, worsening swelling or other new changes. Prescriptions: No Action potassium 99 mg Tablet 99 mg PO DAILY RF: 0 Complete Multivitamin Tablet 1 tab PO DAILY RF: 0 spironolactone 50 mg tablet 50 mg PO DAILY Qty: 30 RF: 0 esomeprazole magnesium [Nexium] 20 mg Capsule,Delayed Release(Dr/Ec) 20 mg PO DAILY Qty: 30 RF: 0 Referrals: Shanda Yang MD [Physician] - Lucia Stewart DO [Primary Care Provider] -
[2019-02-21 14:27] LABS: Add Manual Diff / Slide Review NO; Basophils Absolute Auto 0 /uL (0-100); Basophils Percent Auto 0.5 % (0-2); Eosinophils Absolute Auto 100 /uL (0-450); Hematocrit 27.2 % (41-53); Hemoglobin 9.5 g/dL (13.5-17.5); Lymphocytes Absolute Auto 800 /uL (1100-4500); Lymphocytes Percent Auto 16.3 % (25-40); Mean Corpuscular HGB Conc 35.2 % (30-36); Mean Corpuscular Hemoglobin 35.9 PG (26-34); Mean Corpuscular Volume 102.1 fL (80-100); Monocytes Absolute Auto 500 /uL (0-900); Monocytes Percent Auto 9.5 % (3-14); Neutrophils Absolute Auto 3800 /uL (1500-7000); Neutrophils Percent Auto 72.7 % (50-75); Platelet Count 303 X10^3/uL (150-400); Red Blood Cell Count 2.66 X10^6/uL (4.5-5.9); Red Cell Distribution Width 16.6 % (11.6-14.8); White Blood Cell Count 5.2 X10^3/uL (4.5-11.0)
[2019-02-21 14:34] LABS: INR 1.4 (0.9-1.3); Prothrombin Time 16.2 SECONDS (10.1-12.7)
[2019-02-21 14:36] LABS: PTT Partial Thromboplastin Tim 34 SECONDS (26.4-36.2)
[2019-02-21 14:39] LABS: Alanine Aminotransferase 15 IU/L (21-72); Albumin 2.4 g/dL (3.5-5.0); Albumin Globulin Ratio 0.6 (1.0-2.8); Alkaline Phosphatase 121 U/L (38-126); Aspartate Aminotransferase 29 IU/L (17-59); BUN Creatinine Ratio 6.2 (6-22); Bilirubin Total 0.4 mg/dL (0.2-1.3); Blood Urea Nitrogen 13 mg/dL (9-20); Calcium 7.5 mg/dL (8.4-10.2); Carbon Dioxide 20 mmol/L (22-32); Chloride 101 mmol/L (98-107); Estimated Glomerular Filt Rate 33.2 mL/min (>60); Globulin 3.8 g/dL (1.7-4.1); Glucose 101 mg/dL (70-100); HEMOLYSIS 16 (0-50); Sodium 131 mmol/L (137-145); Total Protein 6.2 g/dL (6.3-8.2)
[2019-02-21 14:50] LABS: Potassium 2.6 mmol/L (3.4-5.1)
--- NOTE | 2019-02-21 15:10 | DI.US.S_ITS ---
PROCEDURE: US ABDOMEN COMPLETE INDICATIONS: ACUTE RENAL FAILURE, ASCITES TECHNIQUE: Real-time scanning was performed of the abdominal and retroperitoneal organs, with image documentation. COMPARISON: None. FINDINGS: Liver: The liver is slightly decreased in size, mildly hyperechoic in echotexture with a micro-lobulated margin. No focal mass. Gallbladder: The gallbladder is partially distended with mild wall thickening, nonspecific in the setting of ascites. The no definite shadowing stones Biliary ducts: Intrahepatic bile ducts are non-dilated. Extrahepatic bile duct caliber measures 5 mm. Normal is 6-7 mm or less in diameter, or 10 mm or less post-cholecystectomy. Pancreas: Not visualized due to lack of good acoustic window. Spleen: Spleen is normal in size and homogeneous in echotexture. Kidneys: Kidneys are normal in size. Right kidney measures 10.4 cm long; left kidney measures 12.0 cm long. There is severe right hydronephrosis and dilated visible proximal ureter. Left renal morphology is normal. No solid masses. Aorta: Visualized aorta is normal in caliber at less than 3 cm. Iliacs: Not seen. IVC: Intrahepatic inferior vena cava is patent. Miscellaneous: A large amount of ascites present. A right lower quadrant skin site marked for safe paracentesis. IMPRESSION: 1. Severe right hydronephrosis and dilated proximal ureter. Distal obstruction is suspected but not visible. Consider a CT KUB. 2. Large amount of ascites. Right lower quadrant skin site was marked for safe paracentesis window. 3. A cirrhotic morphology to liver. 4. Nonvisualization of the spleen or common iliac arteries. Dictated by: Shelly Oscar M.D. on 02/21/2019 at 16:33 Approved by: Shelly Oscar M.D. on 02/21/2019 at 16:38
[2019-02-21] MEDS: POTASSIUM CHLORIDE 40 MEQ in SODIUM CHLORIDE 0.9% 500 ML 130 ML IV (15:25)
[2019-02-21] MEDS: SODIUM CHLORIDE 0.9% 1,000 ML 150 ML IV (15:25)
[2019-02-21 15:32] VITALS: BP 89/65; PULSE 73; RESP 22; O2SAT 97
--- NOTE | 2019-02-21 15:47 | DI.CT.S_ITS ---
PROCEDURE: CT KIDNEY URETER BLADDER (KUB) INDICATIONS: right hydro on US, acute kidney injury TECHNIQUE: Noncontrast 5 mm thick sections acquired from the diaphragms to the symphysis. 5 mm thick coronal and sagittal reformats were then performed. For radiation dose reduction, the following was used: automated exposure control, adjustment of mA and/or kV according to patient size. COMPARISON: None. FINDINGS: Image quality: Excellent. Lung bases: Small right pleural effusion is seen. Bibasilar dependent atelectasis is noted.. Heart size is enlarged, no pericardial effusion. Urinary system: Severe right-sided hydronephrosis is seen. There is also proximal to mid hydroureter. 8 mm stone is seen in distal right ureter series 2 image 78 and series 3 image 47. Tiny 1-2 mm nonobstructing stones are seen in left kidney. No left-sided hydronephrosis. 7 mm exophytic hyperdensity involving upper pole of left kidney anteriorly, and may represent a hyperdense cyst. Mild right perinephric fat stranding is seen. No perinephric fluid collection. Left ureter is within normal limits. Bilateral phleboliths are seen in lower pelvis. Bladder wall thickness is normal; no calcified bladder stones. Other solid organs: Cirrhotic appearing liver is seen, and no gross discrete hepatic lesion. Gallbladder is contracted and shows no gross abnormality.. Pancreas is normal in contours. Spleen is normal in size. No adrenal nodules. Peritoneum and bowel: Unenhanced bowel loops demonstrate normal wall thickness and caliber. No peritoneal free air. A large amount of ascites fluid throughout abdomen and pelvis is seen. Nodes and vessels: No retroperitoneal or mesenteric adenopathy by size criteria. Aorta and inferior vena cava are normal in caliber. Abdominal wall: No ventral hernias. Pelvis: No inguinal hernias or adenopathy. Bones: No suspicious bony lesions. No vertebral body compression fractures. Degenerative disc disease throughout lower thoracic spine and lumbar spine is seen. IMPRESSION: 1. 8 mm right distal ureteral stone with moderate to severe right-sided hydronephrosis and proximal to mid hydroureter. Mild to moderate right perinephric fat stranding. 2. Tiny nonobstructing left renal calculi. Possible hyperdense cyst or hemorrhagic cyst involving upper pole of left kidney. No left-sided hydronephrosis. Normal appearing left ureter and urinary bladder. 3. Liver cirrhosis and large amount of ascites fluid. No peritoneal free air. No bowel obstruction. 4. Small right pleural effusion and bibasilar atelectasis. Cardiomegaly. Dictated by: Jesus Alberto Navarro M.D. on 02/21/2019 at 16:19 Approved by: Jesus Alberto Navarro M.D. on 02/21/2019 at 16:26
[2019-02-21 17:02] VITALS: BP 93/62; PULSE 70; RESP 14; O2SAT 99
--- NOTE | 2019-02-21 17:07 | PC.NURSE ---
Call to pts as pt wants to go home instead of transfer. is notified at [phone] and will come in to ED to s/w patient
[2019-02-21] MEDS: POTASSIUM CHLORIDE 20 MEQ/15 ML UDC 40 MEQ PO (18:46)
[2019-02-21 18:50] LABS: Appearance Urine UA SL CLOUDY; Bilirubin Urine UA NEGATIVE (NEGATIVE); Color Urine UA YELLOW; Glucose Urine UA NEGATIVE (Negative); Ketones Urine UA NEGATIVE (NEGATIVE); Leukocyte Esterase Urine UA 1+ (NEGATIVE); Nitrite Urine UA NEGATIVE (Negative); Occult Blood Urine UA 3+ (Negative); Protein Urine UA TRACE (Negative); Urobilinogen Urine UA 0.2 E.U./dL (0.2)
[2019-02-21 18:51] VITALS: BP 95/66; PULSE 75; RESP 15; O2SAT 96
[2019-02-21 18:58] LABS: Amorphous Sediment Urine 2+; Bacteria Urine Few (2-10); Culture Indicated Urine Specimen Cultured; Mucus Urine 1+ (Negative); RBC Urine 30-100/HPF (0-5/HPF); Squamous Epithelial Cell Urine 0-1 /HPF (0-5/HPF); WBC Urine 10-30/HPF (0-5/HPF)
== END 2019-02-21 18:52 | disposition home or self-care (01) ==
PROVIDERS: Emergency Provider Emergency Medicine; PCP Family Medicine
DX: E87.6 Hypokalemia (principal); K74.60 Unspecified cirrhosis of liver; N17.9 Acute kidney failure, unspecified; N13.2 Hydronephrosis with renal and ureteral calculous obstruction; D64.9 Anemia, unspecified
CPT/HCPCS: 36415; 36591; 74176; 76700; 80053; 81001; 82140; 85025; 85027; 85610; 85730; 87086; 93005; 96365; 96366; 99283; 99285; J3480

== ENCOUNTER 2019-03-20 10:00 | Emergency (ER) | payer OTHER, SELFPAY ==
[2019-02-04 16:47] VITALS: BMI 25.2
[2019-03-20 10:15] VITALS: BP 112/82; PULSE 131; RESP 24; TEMP 36.7; O2SAT 98
--- NOTE | 2019-03-20 10:34 | DI.US.S_ITS ---
PROCEDURE: US ABDOMEN COMPLETE INDICATIONS: DISTENSION, HX ASCITES TECHNIQUE: Real-time scanning was performed of the abdominal and retroperitoneal organs, with image documentation. COMPARISON: [facility], CT, CT KIDNEY URETER BLADDER (KUB), 02/21/2019, 15:56. FINDINGS: Liver: The liver is normal in size and demonstrates moderate to nodularity to the surface of the liver. No obvious liver lesions are identified. Gallbladder: The gallbladder is normal in size without gallbladder wall thickening or cholelithiasis. Biliary ducts: Intrahepatic bile ducts are non-dilated. Extrahepatic bile duct caliber measures 6 mm. Normal is 6-7 mm or less in diameter, or 10 mm or less post-cholecystectomy. Pancreas: Visualized portions of the pancreas are sonographically normal. Spleen: Spleen is normal in size and homogeneous in echotexture. Kidneys: Kidneys are normal in size and echotexture. Right kidney measures 8.9 cm long; left kidney measures 9.0 cm long. Prominent right-sided hydronephrosis and hydroureter is evident. This is similar to the prior CT. No hydronephrosis of the left kidney is evident. No shadowing renal calculi. No solid masses. Aorta: Visualized aorta is normal in caliber at less than 3 cm. Iliacs: Proximal common iliac arteries are normal in caliber at less than 2.5 cm. IVC: Intrahepatic inferior vena cava is patent. Miscellaneous: Extensive abdominal ascites is present. IMPRESSION: 1. Severe right-sided hydronephrosis is unchanged. 2. Cirrhotic liver morphology. No cholelithiasis. 3. Massive abdominal ascites. Dictated by: Larry Price M.D. on 03/20/2019 at 10:45 Approved by: Larry Price M.D. on 03/20/2019 at 10:51
--- NOTE | 2019-03-20 10:36 | ED.ABDPAIN ---
HPI - Abdominal Pain General Chief Complaint: Abdominal Pain Stated Complaint: low potassium,paracentisis,pain Time Seen by Provider: 03/20/19 10:27 Source: patient and old records reviewed Limitations: no limitations History of Present Illness HPI narrative: Patient is a 53-year-old male with history of alcoholism, ascites requiring help out of his car. He presents today with generalized weakness. He is an extremely poor historian. His abdomen is distended but nontender. He complains of be able to get warm but he is afebrile in the pain or heart palpitations no he is tachycardic with heart rate of 125. He has a history of low potassium. Related Data Home Medications Medication Instructions Recorded Confirmed Complete Multivitamin 1 tab PO DAILY 02/04/19 03/20/19 potassium 99 mg PO DAILY 02/04/19 03/20/19 Previous Rx's Medication Instructions Recorded esomeprazole magnesium [Nexium] 20 mg PO DAILY #30 cap 02/07/19 spironolactone 50 mg tablet 50 mg PO DAILY #30 tab 03/19/19 hydrocodone-acetaminophen [[place]] 1 tab PO Q6H PRN #10 tab 03/20/19 Allergies Allergy/AdvReac Type Severity Reaction Status Date / Time Penicillins Allergy Mild unkown, Verified 03/20/19 10:22 childhood Review of Systems Review of Systems ROS Unobtainable: Unobtainable due to medical condition [facility] Medical History Ankle pain (Chronic 2018) Anxiety (Chronic) Cervical spine disease (Chronic 2004) Chronic back pain (Chronic) GERD (gastroesophageal reflux disease) (Chronic 2004) Hearing loss (Chronic) Lumbar spine pain (Chronic) Recurrent sinusitis (Chronic) Rheumatoid arthritis (Chronic) Seizures (Chronic) Sleep apnea (Chronic 2004) PTSD (post-traumatic stress disorder) (Suspected) Abnormal chest x-ray (Resolved 2015) Foot pain (Resolved) Fractures (Resolved) Hemorrhoids (Resolved 1987) History of head injury (Resolved) History of spleen injury (Resolved) Surgical History Anesthesia (Resolved) Hx of surgical procedure (Resolved ~2004) Family History Mother Heart disease Social History household members: spouse, family and children Smoking Status: Current every day smoker Tobacco: How many years used: 10 alcohol intake: current Family History Mother Heart disease Social History household members: spouse, family and children Smoking Status: Current every day smoker Tobacco: How many years used: 10 alcohol intake: current Exam Initial Vital Signs Initial Vital Signs: Vital Signs Temperature 98.1 F 03/20/19 10:15 Pulse Rate 131 H 03/20/19 10:15 Respiratory Rate 24 03/20/19 10:15 Blood Pressure 112/82 03/20/19 10:15 Pulse Oximetry 98 03/20/19 10:15 GENERAL: Week chronically ill slightly pale HEENT: Head atraumatic,EOMI, pupils reactive CARDIOVASCULAR: Regular rate and rhythm without murmurs, rubs or gallops. RESPIRATORY: Breath sounds equal bilaterally, no wheezes rales or rhonchi. ABDOMEN: Distention nontender fluid way EXTREMITIES: Normal range of motion, no clubbing or edema. Neurovascularly intact NEUROLOGICAL: Alert and oriented person and place SKIN: Warm, dry, no laceration, no petechiae, no rashes or lesions. Course Orders Ordered: ED Orders 03/20/19 10:30 EKG-12 Lead Routine 03/20/19 10:34 US abdomen complete Stat 03/20/19 10:40 Complete Blood Count AUTO DIFF Stat Comprehensive Metabolic Panel Stat Lactate (Lactic Acid) Stat Lipase Stat Partial Thromboplastin Time Stat Prothrombin Time INR Stat Type and Screen Stat 03/20/19 12:58 US paracentesis Stat 03/20/19 13:20 Consult to [employer] Stat Vital Signs - 8 hr 03/20/19 10:15 03/20/19 11:00 03/20/19 11:32 Temperature 98.1 F Pulse Rate 131 H 102 H 98 H Respiratory Rate 24 19 15 Blood Pressure 112/82 Blood Pressure [Left Arm] 109/80 102/82 Pulse Oximetry 98 98 99 03/20/19 12:33 03/20/19 15:15 Temperature Pulse Rate 99 H 103 H Respiratory Rate 16 13 Blood Pressure Blood Pressure [Left Arm] 103/79 97/70 Pulse Oximetry 99 100 MDM - Abdominal Pain Lab Data Attestation: I reviewed the patient's lab results. Result diagrams: 03/20/19 10:40 03/20/19 10:40 Lab Results 03/20/19 03/20/19 03/20/19 Range/Units 10:40 10:40 10:40 WBC 10.5 (4.5-11.0) X10^3/uL RBC 3.35 L (4.5-5.9) X10^6/uL Hgb 11.2 L (13.5-17.5) g/dL Hct 32.9 L (41-53) % MCV 98.0 (80-100) fL MCH 33.4 (26-34) PG MCHC 34.1 (30-36) % RDW 15.3 H (11.6-14.8) % Plt Count 338 (150-400) X10^3/uL Neut % (Auto) 86.7 H (50-75) % Lymph % (Auto) 6.5 L (25-40) % Peach % (Auto) 6.0 (3-14) % Eos % (Auto) 0.5 L (2-4) % Baso % (Auto) 0.3 (0-2) % Neut # (Auto) 9100 H (9874-7985) /uL Lymph # (Auto) 700 L (4538-4288) /uL Peach # (Auto) 600 (0-900) /uL Eos # (Auto) 100 (0-450) /uL Baso # (Auto) 0 (0-100) /uL PT (10.1-12.7) SECONDS INR (0.9-1.3) APTT (26.4-36.2) SECONDS Sodium (137-145) mmol/L Potassium (3.4-5.1) mmol/L Chloride (98-107) mmol/L Carbon Dioxide (22-32) mmol/L BUN (9-20) mg/dL Creatinine (0.66-1.25) mg/dL Estimated GFR (>60) mL/min BUN/Creatinine Ratio (6-22) Glucose (70-100) mg/dL Lactate 2.1 (0.7-2.1) mmol/L Calcium (8.4-10.2) mg/dL Total Bilirubin (0.2-1.3) mg/dL AST (17-59) IU/L ALT (21-72) IU/L Alkaline Phosphatase (38-126) U/L Total Protein (6.3-8.2) g/dL Albumin (3.5-5.0) g/dL Globulin (1.7-4.1) g/dL Albumin/Globulin Ratio (1.0-2.8) Lipase (23-300) U/L Blood Type A Positive Antibody Screen Negative 03/20/19 03/20/19 Range/Units 10:40 10:40 WBC (4.5-11.0) X10^3/uL RBC (4.5-5.9) X10^6/uL Hgb (13.5-17.5) g/dL Hct (41-53) % MCV (80-100) fL MCH (26-34) PG MCHC (30-36) % RDW (11.6-14.8) % Plt Count (150-400) X10^3/uL Neut % (Auto) (50-75) % Lymph % (Auto) (25-40) % Peach % (Auto) (3-14) % Eos % (Auto) (2-4) % Baso % (Auto) (0-2) % Neut # (Auto) (4911-9889) /uL Lymph # (Auto) (2554-3555) /uL Peach # (Auto) (0-900) /uL Eos # (Auto) (0-450) /uL Baso # (Auto) (0-100) /uL PT 15.8 H (10.1-12.7) SECONDS INR 1.4 H (0.9-1.3) APTT 34 (26.4-36.2) SECONDS Sodium 125 L (137-145) mmol/L Potassium 4.2 (3.4-5.1) mmol/L Chloride 95 L (98-107) mmol/L Carbon Dioxide 23 (22-32) mmol/L BUN 10 (9-20) mg/dL Creatinine 1.20 (0.66-1.25) mg/dL Estimated GFR > 60.0 (>60) mL/min BUN/Creatinine Ratio 8.3 (6-22) Glucose 110 H (70-100) mg/dL Lactate (0.7-2.1) mmol/L Calcium 8.0 L (8.4-10.2) mg/dL Total Bilirubin 0.5 (0.2-1.3) mg/dL AST 38 (17-59) IU/L ALT 12 L (21-72) IU/L Alkaline Phosphatase 118 (38-126) U/L Total Protein 6.9 (6.3-8.2) g/dL Albumin 2.6 L (3.5-5.0) g/dL Globulin 4.3 H (1.7-4.1) g/dL Albumin/Globulin Ratio 0.6 L (1.0-2.8) Lipase 44 (23-300) U/L Blood Type Antibody Screen Imaging Data US - abdomen: Radiologist's impression: PROCEDURE: US ABDOMEN COMPLETE INDICATIONS: DISTENSION, HX ASCITES TECHNIQUE: Real-time scanning was performed of the abdominal and retroperitoneal organs, with image documentation. COMPARISON: [facility], CT, CT KIDNEY URETER BLADDER (KUB), 02/21/2019, 15:56. FINDINGS: Liver: The liver is normal in size and demonstrates moderate to nodularity to the surface of the liver. No obvious liver lesions are identified. Gallbladder: The gallbladder is normal in size without gallbladder wall thickening or cholelithiasis. Biliary ducts: Intrahepatic bile ducts are non-dilated. Extrahepatic bile duct caliber measures 6 mm. Normal is 6-7 mm or less in diameter, or 10 mm or less post-cholecystectomy. Pancreas: Visualized portions of the pancreas are sonographically normal. Spleen: Spleen is normal in size and homogeneous in echotexture. Kidneys: Kidneys are normal in size and echotexture. Right kidney measures 8.9 cm long; left kidney measures 9.0 cm long. Prominent right-sided hydronephrosis and hydroureter is evident. This is similar to the prior CT. No hydronephrosis of the left kidney is evident. No shadowing renal calculi. No solid masses. Aorta: Visualized aorta is normal in caliber at less than 3 cm. Iliacs: Proximal common iliac arteries are normal in caliber at less than 2.5 cm. IVC: Intrahepatic inferior vena cava is patent. Miscellaneous: Extensive abdominal ascites is present. IMPRESSION: 1. Severe right-sided hydronephrosis is unchanged. 2. Cirrhotic liver morphology. No cholelithiasis. 3. Massive abdominal ascites. Dictated by: Larry Price M.D. on 03/20/2019 at 10:45 US paracentesis: Radiologist's impression: PROCEDURE: US PARACENTESIS INDICATIONS: ASCITIES TECHNIQUE: The indications, alternatives, benefits, risks, and complications of the procedure were explained to the patient. Written informed consent was obtained and placed in the chart. The abdomen and pelvis were examined sonographically, and an appropriate site was chosen for paracentesis. The skin was prepared and draped in the usual sterile fashion, and 1% lidocaine was infiltrated from the skin down through the peritoneal surface. A 19-gauge catheter-covered needle was then introduced into the peritoneal space, the catheter was advanced and the needle was withdrawn, and thereafter peritoneal fluid was withdrawn. The catheter was then removed and a dressing was applied. The fluid was discarded if the clinician did not order diagnostic testing of the fluid. COMPARISON: [facility], , PARACENTESIS, 02/05/2019, 14:55. FINDINGS: Access site: Right lower quadrant Needle: One-Step centesis catheter with introducer needle. Fluid volume and description: 5000 cc of serous fluid Fluid sent for diagnostic testing: Not requested Medications: 1% lidocaine for local anaesthesia. Complications: None. IMPRESSION: Successful ultrasound-guided paracentesis. Dictated by: Sadi Clifford M.D. on 03/20/2019 at 15:10 [facility] Narrative Medical decision making narrative: After paracentesis patient is actually awake and alert and able answer more questions. His abdomen is soft. at bedside is stating that they would ultimately like to go home. Social Work has been down to speak with them that they have set hospice up. Hospice will be in to evaluate patient tomorrow at patient's home. At this time patient is feeling better at they feel riding able go home. They want no further care at this time. Patient became significantly more awake and responsive I do not believe ammonia level to be elevated. Also patient is going into hospice tomorrow. Discharge Plan Departure Patient Disposition: Home Clinical Impression: Ascites Qualifiers: Ascites type: due to alcoholic cirrhosis Qualified Code(s): K70.31 - Alcoholic cirrhosis of liver with ascites Discharge Date/Time: 03/20/19 15:51 Interventions: ED Discharge Assessment Last Done: 03/20/19 15:51 Instructions: Ascites Activity Restrictions/Additional Instructions: *You have been diagnosed with ascites *What to do: Hospice will be coming to her house tomorrow *Continue to take medications as directed [place] 1-2 tablets every 6 hours if needed for pain *Follow up with your primary care provider in 2-3 days *Return to ER if you should have any new, worsening or concerning symptoms Prescriptions: New hydrocodone-acetaminophen [W[place]enburg] 5-325 mg tablet 1 tab PO Q6H PRN (Reason: pain) Qty: 10 RF: 0 No Action spironolactone 50 mg tablet 50 mg PO DAILY Qty: 30 RF: 0 potassium 99 mg Tablet 99 mg PO DAILY RF: 0 Complete Multivitamin Tablet 1 tab PO DAILY RF: 0 esomeprazole magnesium [Nexium] 20 mg Capsule,Delayed Release(Dr/Ec) 20 mg PO DAILY Qty: 30 RF: 0 Referrals: Lucia Stewart DO [Primary Care Provider] -
--- NOTE | 2019-03-20 10:40 | ED_ITS ---
HPI - Abdominal Pain General Chief Complaint: Abdominal Pain Stated Complaint: low potassium,paracentisis,pain Time Seen by Provider: 03/20/19 10:27 Source: patient and old records reviewed Limitations: no limitations History of Present Illness HPI narrative: Patient is a 53-year-old male with history of alcoholism, ascites requiring help out of his car. He presents today with generalized weakness. He is an extremely poor historian. His abdomen is distended but nontender. He complains of be able to get warm but he is afebrile in the pain or heart palpitations no he is tachycardic with heart rate of 125. He has a history of low potassium. Related Data Home Medications Medication Instructions Recorded Confirmed Complete Multivitamin 1 tab PO DAILY 02/04/19 03/20/19 potassium 99 mg PO DAILY 02/04/19 03/20/19 Previous Rx's Medication Instructions Recorded esomeprazole magnesium [Nexium] 20 mg PO DAILY #30 cap 02/07/19 spironolactone 50 mg tablet 50 mg PO DAILY #30 tab 03/19/19 hydrocodone-acetaminophen [Houck] 1 tab PO Q6H PRN #10 tab 03/20/19 Allergies Allergy/AdvReac Type Severity Reaction Status Date / Time Penicillins Allergy Mild unkown, Verified 03/20/19 10:22 childhood Review of Systems Review of Systems ROS Unobtainable: Unobtainable due to medical condition [facility] Medical History Ankle pain (Chronic 2018) Anxiety (Chronic) Cervical spine disease (Chronic 2004) Chronic back pain (Chronic) GERD (gastroesophageal reflux disease) (Chronic 2004) Hearing loss (Chronic) Lumbar spine pain (Chronic) Recurrent sinusitis (Chronic) Rheumatoid arthritis (Chronic) Seizures (Chronic) Sleep apnea (Chronic 2004) PTSD (post-traumatic stress disorder) (Suspected) Abnormal chest x-ray (Resolved 2015) Foot pain (Resolved) Fractures (Resolved) Hemorrhoids (Resolved 1987) History of head injury (Resolved) History of spleen injury (Resolved) Surgical History Anesthesia (Resolved) Hx of surgical procedure (Resolved ~2004) Family History Mother Heart disease Social History household members: spouse, family and children Smoking Status: Current every day smoker Tobacco: How many years used: 10 alcohol intake: current Family History Mother Heart disease Social History household members: spouse, family and children Smoking Status: Current every day smoker Tobacco: How many years used: 10 alcohol intake: current Exam Initial Vital Signs Initial Vital Signs: Vital Signs Temperature 98.1 F 03/20/19 10:15 Pulse Rate 131 H 03/20/19 10:15 Respiratory Rate 24 03/20/19 10:15 Blood Pressure 112/82 03/20/19 10:15 Pulse Oximetry 98 03/20/19 10:15 GENERAL: Week chronically ill slightly pale HEENT: Head atraumatic,EOMI, pupils reactive CARDIOVASCULAR: Regular rate and rhythm without murmurs, rubs or gallops. RESPIRATORY: Breath sounds equal bilaterally, no wheezes rales or rhonchi. ABDOMEN: Distention nontender fluid way EXTREMITIES: Normal range of motion, no clubbing or edema. Neurovascularly intact NEUROLOGICAL: Alert and oriented person and place SKIN: Warm, dry, no laceration, no petechiae, no rashes or lesions. Course Orders Ordered: ED Orders 03/20/19 10:30 EKG-12 Lead Routine 03/20/19 10:34 US abdomen complete Stat 03/20/19 10:40 Complete Blood Count AUTO DIFF Stat Comprehensive Metabolic Panel Stat Lactate (Lactic Acid) Stat Lipase Stat Partial Thromboplastin Time Stat Prothrombin Time INR Stat Type and Screen Stat 03/20/19 12:58 US paracentesis Stat 03/20/19 13:20 Consult to Product Designer Stat Vital Signs - 8 hr 03/20/19 10:15 03/20/19 11:00 03/20/19 11:32 Temperature 98.1 F Pulse Rate 131 H 102 H 98 H Respiratory Rate 24 19 15 Blood Pressure 112/82 Blood Pressure [Left Arm] 109/80 102/82 Pulse Oximetry 98 98 99 03/20/19 12:33 03/20/19 15:15 Temperature Pulse Rate 99 H 103 H Respiratory Rate 16 13 Blood Pressure Blood Pressure [Left Arm] 103/79 97/70 Pulse Oximetry 99 100 MDM - Abdominal Pain Lab Data Attestation: I reviewed the patient's lab results. Result diagrams: 03/20/19 10:40 03/20/19 10:40 Lab Results 03/20/19 03/20/19 03/20/19 Range/Units 10:40 10:40 10:40 WBC 10.5 (4.5-11.0) X10^3/uL RBC 3.35 L (4.5-5.9) X10^6/uL Hgb 11.2 L (13.5-17.5) g/dL Hct 32.9 L (41-53) % MCV 98.0 (80-100) fL MCH 33.4 (26-34) PG MCHC 34.1 (30-36) % RDW 15.3 H (11.6-14.8) % Plt Count 338 (150-400) X10^3/uL Neut % (Auto) 86.7 H (50-75) % Lymph % (Auto) 6.5 L (25-40) % [place] % (Auto) 6.0 (3-14) % Eos % (Auto) 0.5 L (2-4) % Baso % (Auto) 0.3 (0-2) % Neut # (Auto) 9100 H (4146-4888) /uL Lymph # (Auto) 700 L (1215-1581) /uL [place] # (Auto) 600 (0-900) /uL Eos # (Auto) 100 (0-450) /uL Baso # (Auto) 0 (0-100) /uL PT (10.1-12.7) SECONDS INR (0.9-1.3) APTT (26.4-36.2) SECONDS Sodium (137-145) mmol/L Potassium (3.4-5.1) mmol/L Chloride (98-107) mmol/L Carbon Dioxide (22-32) mmol/L BUN (9-20) mg/dL Creatinine (0.66-1.25) mg/dL Estimated GFR (>60) mL/min BUN/Creatinine Ratio (6-22) Glucose (70-100) mg/dL Lactate 2.1 (0.7-2.1) mmol/L Calcium (8.4-10.2) mg/dL Total Bilirubin (0.2-1.3) mg/dL AST (17-59) IU/L ALT (21-72) IU/L Alkaline Phosphatase (38-126) U/L Total Protein (6.3-8.2) g/dL Albumin (3.5-5.0) g/dL Globulin (1.7-4.1) g/dL Albumin/Globulin Ratio (1.0-2.8) Lipase (23-300) U/L Blood Type A Positive Antibody Screen Negative 03/20/19 03/20/19 Range/Units 10:40 10:40 WBC (4.5-11.0) X10^3/uL RBC (4.5-5.9) X10^6/uL Hgb (13.5-17.5) g/dL Hct (41-53) % MCV (80-100) fL MCH (26-34) PG MCHC (30-36) % RDW (11.6-14.8) % Plt Count (150-400) X10^3/uL Neut % (Auto) (50-75) % Lymph % (Auto) (25-40) % [place] % (Auto) (3-14) % Eos % (Auto) (2-4) % Baso % (Auto) (0-2) % Neut # (Auto) (3098-6398) /uL Lymph # (Auto) (1070-0945) /uL [place] # (Auto) (0-900) /uL Eos # (Auto) (0-450) /uL Baso # (Auto) (0-100) /uL PT 15.8 H (10.1-12.7) SECONDS INR 1.4 H (0.9-1.3) APTT 34 (26.4-36.2) SECONDS Sodium 125 L (137-145) mmol/L Potassium 4.2 (3.4-5.1) mmol/L Chloride 95 L (98-107) mmol/L Carbon Dioxide 23 (22-32) mmol/L BUN 10 (9-20) mg/dL Creatinine 1.20 (0.66-1.25) mg/dL Estimated GFR > 60.0 (>60) mL/min BUN/Creatinine Ratio 8.3 (6-22) Glucose 110 H (70-100) mg/dL Lactate (0.7-2.1) mmol/L Calcium 8.0 L (8.4-10.2) mg/dL Total Bilirubin 0.5 (0.2-1.3) mg/dL AST 38 (17-59) IU/L ALT 12 L (21-72) IU/L Alkaline Phosphatase 118 (38-126) U/L Total Protein 6.9 (6.3-8.2) g/dL Albumin 2.6 L (3.5-5.0) g/dL Globulin 4.3 H (1.7-4.1) g/dL Albumin/Globulin Ratio 0.6 L (1.0-2.8) Lipase 44 (23-300) U/L Blood Type Antibody Screen Imaging Data US - abdomen: Radiologist's impression: PROCEDURE: US ABDOMEN COMPLETE INDICATIONS: DISTENSION, HX ASCITES TECHNIQUE: Real-time scanning was performed of the abdominal and retroperitoneal organs, with image documentation. COMPARISON: [facility], CT, CT KIDNEY URETER BLADDER (KUB), 02/21/2019, 15:56. FINDINGS: Liver: The liver is normal in size and demonstrates moderate to nodularity to the surface of the liver. No obvious liver lesions are identified. Gallbladder: The gallbladder is normal in size without gallbladder wall thickening or cholelithiasis. Biliary ducts: Intrahepatic bile ducts are non-dilated. Extrahepatic bile duct caliber measures 6 mm. Normal is 6-7 mm or less in diameter, or 10 mm or less post-cholecystectomy. Pancreas: Visualized portions of the pancreas are sonographically normal. Spleen: Spleen is normal in size and homogeneous in echotexture. Kidneys: Kidneys are normal in size and echotexture. Right kidney measures 8.9 cm long; left kidney measures 9.0 cm long. Prominent right-sided hydronephrosis and hydroureter is evident. This is similar to the prior CT. No hydronephrosis of the left kidney is evident. No shadowing renal calculi. No solid masses. Aorta: Visualized aorta is normal in caliber at less than 3 cm. Iliacs: Proximal common iliac arteries are normal in caliber at less than 2.5 cm. IVC: Intrahepatic inferior vena cava is patent. Miscellaneous: Extensive abdominal ascites is present. IMPRESSION: 1. Severe right-sided hydronephrosis is unchanged. 2. Cirrhotic liver morphology. No cholelithiasis. 3. Massive abdominal ascites. Dictated by: Larry Price M.D. on 03/20/2019 at 10:45 US paracentesis: Radiologist's impression: PROCEDURE: US PARACENTESIS INDICATIONS: ASCITIES TECHNIQUE: The indications, alternatives, benefits, risks, and complications of the pr ocedure were explained to the patient. Written informed consent was obtained and placed in the chart. The abdomen and pelvis were examined sonographically, and an appropriate site was chosen for paracentesis. The skin was prepared and draped in the usual sterile fashion, and 1% lidocaine was infiltrated from the skin down through the peritoneal surface. A 19-gauge catheter-covered needle was then introduced into the peritoneal space, the catheter was advanced and the needle was withdrawn, and thereafter peritoneal fluid was withdrawn. The catheter was then removed and a dressing was applied. The fluid was discarded if the clinician did not order diagnostic testing of the fluid. COMPARISON: [facility], , PARACENTESIS, 02/05/2019, 14:55. FINDINGS: Access site: Right lower quadrant Needle: One-Step centesis catheter with introducer needle. Fluid volume and description: 5000 cc of serous fluid Fluid sent for diagnostic testing: Not requested Medications: 1% lidocaine for local anaesthesia. Complications: None. IMPRESSION: Successful ultrasound-guided paracentesis. Dictated by: Sadi Clifford M.D. on 03/20/2019 at 15:10 [facility] Narrative Medical decision making narrative: After paracentesis patient is actually awake and alert and able answer more questions. His abdomen is soft. at bedside is stating that they would ultimately like to go home. Social Work has been down to speak with them that they have set hospice up. Hospice will be in to evaluate patient tomorrow at patient's home. At this time patient is feeling better at they feel riding able go home. They want no further care at this time. Patient became significantly more awake and responsive I do not believe ammonia level to be elevated. Also patient is going into hospice tomorrow. Discharge Plan Departure Patient Disposition: Home Clinical Impression: Ascites Qualifiers: Ascites type: due to alcoholic cirrhosis Qualified Code(s): K70.31 - Alcoholic cirrhosis of liver with ascites Discharge Date/Time: 03/20/19 15:51 Interventions: ED Discharge Assessment Last Done: 03/20/19 15:51 Instructions: Ascites Activity Restrictions/Additional Instructions: *You have been diagnosed with ascites *What to do: Hospice will be coming to her house tomorrow *Continue to take medications as directed Houck 1-2 tablets every 6 hours if needed for pain *Follow up with your primary care provider in 2-3 days *Return to ER if you should have any new, worsening or concerning symptoms Prescriptions: New hydrocodone-acetaminophen [Houck] 5-325 mg tablet 1 tab PO Q6H PRN (Reason: pain) Qty: 10 RF: 0 No Action spironolactone 50 mg tablet 50 mg PO DAILY Qty: 30 RF: 0 potassium 99 mg Tablet 99 mg PO DAILY RF: 0 Complete Multivitamin Tablet 1 tab PO DAILY RF: 0 esomeprazole magnesium [Nexium] 20 mg Capsule,Delayed Release(Dr/Ec) 20 mg PO DAILY Qty: 30 RF: 0 Referrals: Lucia Stewart DO [Primary Care Provider] -
[2019-03-20 10:49] LABS: Add Manual Diff / Slide Review NO; Basophils Absolute Auto 0 /uL (0-100); Basophils Percent Auto 0.3 % (0-2); Eosinophils Absolute Auto 100 /uL (0-450); Eosinophils Percent Auto 0.5 % (2-4); Hematocrit 32.9 % (41-53); Hemoglobin 11.2 g/dL (13.5-17.5); Lymphocytes Absolute Auto 700 /uL (1100-4500); Lymphocytes Percent Auto 6.5 % (25-40); Mean Corpuscular HGB Conc 34.1 % (30-36); Mean Corpuscular Hemoglobin 33.4 PG (26-34); Monocytes Absolute Auto 600 /uL (0-900); Neutrophils Absolute Auto 9100 /uL (1500-7000); Neutrophils Percent Auto 86.7 % (50-75); Platelet Count 338 X10^3/uL (150-400); Red Blood Cell Count 3.35 X10^6/uL (4.5-5.9); Red Cell Distribution Width 15.3 % (11.6-14.8); White Blood Cell Count 10.5 X10^3/uL (4.5-11.0)
[2019-03-20 11:00] VITALS: BP 109/80; PULSE 102; RESP 19; O2SAT 98
[2019-03-20 11:02] LABS: Lactate (Lactic Acid) 2.1 mmol/L (0.7-2.1)
[2019-03-20 11:03] LABS: Alanine Aminotransferase 12 IU/L (21-72); Albumin 2.6 g/dL (3.5-5.0); Albumin Globulin Ratio 0.6 (1.0-2.8); Alkaline Phosphatase 118 U/L (38-126); Aspartate Aminotransferase 38 IU/L (17-59); BUN Creatinine Ratio 8.3 (6-22); Bilirubin Total 0.5 mg/dL (0.2-1.3); Blood Urea Nitrogen 10 mg/dL (9-20); Carbon Dioxide 23 mmol/L (22-32); Chloride 95 mmol/L (98-107); Estimated Glomerular Filt Rate > 60.0 mL/min (>60); Globulin 4.3 g/dL (1.7-4.1); Glucose 110 mg/dL (70-100); HEMOLYSIS 23 (0-50); Lipase 44 U/L (23-300); Potassium 4.2 mmol/L (3.4-5.1); Sodium 125 mmol/L (137-145); Total Protein 6.9 g/dL (6.3-8.2)
[2019-03-20 11:20] LABS: INR 1.4 (0.9-1.3); Prothrombin Time 15.8 SECONDS (10.1-12.7)
[2019-03-20 11:22] LABS: PTT Partial Thromboplastin Tim 34 SECONDS (26.4-36.2)
[2019-03-20 11:32] VITALS: BP 102/82; PULSE 98; RESP 15; O2SAT 99
[2019-03-20 12:33] VITALS: BP 103/79; PULSE 99; RESP 16; O2SAT 99
--- NOTE | 2019-03-20 12:58 | DI.US.S_ITS ---
PROCEDURE: US PARACENTESIS INDICATIONS: ASCITIES TECHNIQUE: The indications, alternatives, benefits, risks, and complications of the procedure were explained to the patient. Written informed consent was obtained and placed in the chart. The abdomen and pelvis were examined sonographically, and an appropriate site was chosen for paracentesis. The skin was prepared and draped in the usual sterile fashion, and 1% lidocaine was infiltrated from the skin down through the peritoneal surface. A 19-gauge catheter-covered needle was then introduced into the peritoneal space, the catheter was advanced and the needle was withdrawn, and thereafter peritoneal fluid was withdrawn. The catheter was then removed and a dressing was applied. The fluid was discarded if the clinician did not order diagnostic testing of the fluid. COMPARISON: [facility], PARACENTESIS, 02/05/2019, 14:55. FINDINGS: Access site: Right lower quadrant Needle: One-Step centesis catheter with introducer needle. Fluid volume and description: 5000 cc of serous fluid Fluid sent for diagnostic testing: Not requested Medications: 1% lidocaine for local anaesthesia. Complications: None. IMPRESSION: Successful ultrasound-guided paracentesis. Dictated by: Sadi Clifford M.D. on 03/20/2019 at 15:10 Approved by: Sadi Clifford M.D. on 03/20/2019 at 15:11
[2019-03-20 15:15] VITALS: BP 97/70; PULSE 103; RESP 13; O2SAT 100
--- NOTE | 2019-03-20 15:16 | PC.NURSE ---
elva here to speak with pt and regarding hospice care. hospice will be there in am to discuss what they need.
--- NOTE | 2019-03-20 16:12 | CM.SWNOTE ---
APPLICATION SUPPORT ADMINISTRATOR Note: Received call from ED/RN Aydee re: hospice evaluation. Patient is a 53yr old male that came into the ED for abdominal pain. Patient with h/o alcoholism requiring paracentisis to remove the fluid from his abdomen. PCP is Dr. Stewart. Primary payor is 1)Gabe Lott. RN/Aydee reports that patient and spouse are requesting to leave the ED and go home on hospice. Met with patient, spouse, and daughter explained role. Patient and spouse confirm that they do not want to continue to come to the hospital to have abdominal fluid removed. Instead, patient requesting to return home to be comfortable. Family in agreement. Patient reports that he continues to enjoy smoking and drinking. Currently patient resides in [place] in garage that family has fixed up for him. Patient appears frail and weak due to alcoholism. With patient's permission placed [facility] Patient and spouse have no agency preference. APPLICATION SUPPORT ADMINISTRATOR spoke with Margaux requesting informational visit in the residence as soon as possible. Margaux reports that [facility] can see patient in the residence on 03-21-19. All clinical including HT/WT and SSN [facility]ed to [facility] No additional needs identified at this time. Spouse reports that she will attempt to get patient home in private automobile. ED staff, patient and spouse/family to determine safest mode of transport home. Hospice brochure provided to patient and spouse. They are aware that informational visit scheduled for tomorrow and that hospice will be in touch. P: Home today. Family requesting hospice services only. APPLICATION SUPPORT ADMINISTRATOR arranged and ED staff notified. TYLER Guy
== END 2019-03-20 15:51 | disposition home or self-care (01) ==
PROVIDERS: Emergency Provider Emergency Medicine; PCP Family Medicine
DX: K70.31 Alcoholic cirrhosis of liver with ascites (principal)
CPT/HCPCS: 36591; 49083; 76700; 80053; 83605; 83690; 85025; 85610; 85730; 86850; 86900; 86901; 93005; 99283; 99285